=== PATIENT | male | born 1950 | race Caucasian/White ===

== ENCOUNTER 2017-07-10 18:18 | Inpatient (IN) ==
[2017-07-10] MEDS ORDERED: SALINE FLUSH 10ml SYRINGE IVF PRN (18:27)
--- NOTE | 2017-07-10 18:33 | Emergency Department Report ---
Psych HPI - General Stated Complaint: Confusion/ poss detox Time Seen by Provider: 07/10/17 18:27 Source: patient, EMS Mode of arrival: EMS Limitations: no limitations - History of Present Illness HPI Narrative: Patient is brought from [facility] for evaluation of acute mental status change with increased confusion, shaking, agitation, and bizarre behavior with hallucinations. Patient appears to be in some type of withdrawal or encephalopathy. 2 days ago the patient took 15 oxycodone, and then presented to [facility] in [place]. Patient was kept overnight, ruled out for overdose of acetaminophen, his somnolence resolved, and he was then transferred to [facility] for concerns of depression with suicidality and possible suicide attempt. Patient states that 2 days ago he did have "a bottle" of some type of liquor, but prior to that time he gave up drinking in 2003. Patient denies heavy drinking or significant drinking in the past few months, also denies routinely using narcotics or other drugs. Patient is uncertain about any head trauma, and reviewing the laboratory and records from [facility] that were included with the patient, it does not appear that a CT scan of the head was undertaken. Labs from 2 days ago did show that the patient had oxycodone in his system, but no acetaminophen or very little. Other toxicities did not appear to be indicated by his normal lab. Patient has had Ativan given once prior to transfer at 11 AM, and then had another dose of Ativan once he arrived at [facility], but his agitation and confusion seems to simply be worsening. Patient is directable, answers most questions, and follows directions, but when not spoken to, its clear that the patient is having delusional behavior, talking to people who were not there, and having nonsensical speech. In reviewing the patient notes from [facility], 2:00 this morning the patient was noted to be "talking about the [employer] and [employer] and look it up it will tell you" also patient was talking about wooden doors opening and closing from the ceiling. 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 Oxycodone 15 mg 5 times daily Surgical History: CABG. Left knee surgery 2004. Left knee replacement 2010 Physical Exam - Limitations Limitations: altered mental status (and is cooperative, but moderately confused , and when not spoken to directly, patient has rambling and nonsensical language , talking about and toward people who were not in the room) - General General appearance: alert - Normal Exams: Head:: Normocephalic without trauma Eyes:: Pupils are PERRLA w/ EOMI, No scleral icterus, irritation, or foreign bodies noted ENMT:: No facial trauma, nasal exudates, pharyngeal erythema, or exudates are noted Neck:: Full range of motion, without adenopathy, JVD, bruits or thyromegaly Chest/Respirations:: Clear all falcon, with good airflow, and symmetry bilaterally Cardiovascular:: Regular rate and rhythm, without murmur or gallop, Pulses 2+ all extremities, capillary refill, <2 seconds all extremities Abdomen:: Bowel sounds positive, soft, non-tender, non-distended, no hepatosplenomegaly, masses or bruits noted Lymphatic:: No lymphadenopathy, or lymphedema noted Musculoskeletal:: No tenderness, or deformity noted, good range of motion, all extremities Integumentary:: No rashes, hives, or bruising noted, hair and nails, without abnormality Neurological:: Patient is alert, and oriented, cranial nerves, motor/sensory/ cerebellar, exams w/o gross deficits, to observation Psychiatric:: Patient exhibits, appropriate attention, emotion and affect - Psychiatric Psychiatric exam: Present: flat affect (rambling tangential speech, moderate psychosis with nonsensical speech, and probable hallucinations. Patient is directable and can answer questions however) Psych - MDM Narrative Medical decision making narrative: CBC, CMP, UA/drug screen and EtOH all negative. CT head shows no acute findings. Over the course of the ER visit patient has become rather somnolent, consistent with Ativan dosing. Patient while asleep is slightly hypoxemic, but responds well to supplemental oxygen. Patient can be awakened, to his normal level of orientation of both person and date of , but no orientation beyond that. Case was discussed with prereview attending psychiatrist who feels that the patient is beyond her capabilities. Patient was then discussed with generations staff psychiatrist who also feels that the patient's delusional and questionable alcohol withdrawal or beyond their acute care capabilities as well. Case is discussed with Dr. Reece Rosas who will admit the patient inpatient medical telemetry for acute delirium with questionable alcohol withdrawal versus undiagnosed schizophrenia versus other cause for acute psychosis. - Lab Data Result diagrams: 07/10/17 18:51 07/10/17 18:51 Disposition Clinical Impression: Acute delirium Psychosis Qualifiers: Psychosis type: other Qualified Code(s): F28 - Other psychotic disorder not due to a substance or known physiological condition Disposition: [address] [facility] [place] Condition: Improved Prescriptions: No Action Unable to Obtain Med List [Unknown Meds] 0 #0 misc - Seen By: physician
--- OUTSIDE RECORDS SUMMARY | 2017-07-10 18:51 | External Medical Summary | Continuity of Care Document ---
:1950 Author Organization [facility] Care Team Providers Name Role Phone SHER CHRISTINA M.D. Unavailable Unavailable Insurance Providers Payer Name Policy Number Subscriber Name Relationship [employer] [id number] [id number] Self / Same As Patient Chief Complaint and Reason for Visit Chief Complaint Medical Problem Minor Reason for Visit Benzodiazepine withdrawal Problems Active Problems Medical Problem Onset Date Status Anxiety disorder 09/03/2010 Chronic Benzodiazepine withdrawal Unknown Acute Chest pain 06/24/2011 Chronic Chronic low back pain 06/03/2011 Chronic Chronic pain syndrome Unknown Acute Colon cancer screening Unknown Acute Coronary arteriosclerosis 08/20/2010 Chronic Degeneration of intervertebral disc 08/20/2010 Chronic Depressive disorder 11/07/2010 Chronic Diabetes mellitus type 2 08/20/2010 Chronic Disease related peripheral neuropathy 09/24/2010 Chronic Edema 09/17/2010 Chronic Hyperlipidemia 02/26/2011 Chronic Hypertension Unknown Acute Inguinal pain 11/19/2010 Chronic Injury of head 03/06/2011 Chronic LUMBAGO 11/16/2010 Chronic Osteoarthritis 08/20/2010 Chronic Reactive airways dysfunction syndrome 05/13/2011 Chronic 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 Medications Current Home Medications Medication Dose Units Route Directions Days/Qty Instructions Start Date Amlodipine 5 Mg Oral Daily for Not 08/17/14 Besylate 5 Mg Specified Omeprazole 40 Mg 40 Mg Oral Daily for Not 08/17/14 Specified Metformin Hcl 500 500 Mg Oral Twice A Day for 08/17/14 Mg Not Specified Acetaminophen/Hydr 1 Tab Oral for Not Specified for pain 08/17/14 ocodone Bitart 1 Tab Alprazolam 2 Mg 2 Mg Oral Twice A Day as 5 04/14/15 needed for Anxiety/Insomnia/ Spasms Past Home Medications Medication Directions Ordered Status Rosuvastatin Calcium 10 Mg Tab, Daily 11/14/07 Discontinued Hydrocodone-Acetaminophen Tab, 7.5 Every 6 Hours 11/14/07 Discontinued Tab Oral Hydrocodone-Acetaminophen Tab, 7.5 Every 8 Hours As Needed 11/29/07 Discontinued Tab Oral Aspirin 81 Mg Chw, 81 Mg Oral Daily 01/08/08 Discontinued Metoprolol Succinate 50 Mg Tab, 50 Daily 04/07/08 Discontinued Mg Oral Oxycodone/Acetaminophen 1 Ea Tab, 1 Every 6 Hours As Needed 06/12/08 Discontinued - 2 Tab Oral Alprazolam 1 Mg Tab, Oral Three Times A Day 12/22/08 Discontinued Insulin Glargine 100 Mg/Ml Inj, 20 Bedtime 12/22/08 Discontinued Units Subcutaneously Metformin Hcl 500 Mg Tab, Oral Twice A Day 12/22/08 Discontinued Oxycodone/Acetaminophen 1 Ea Tab, 1 Twice A Day 08/21/09 Discontinued Ea Oral Alprazolam 1 Mg Tab, 1 Mg Oral Four Times A Day As Needed 09/03/10 Discontinued Oxycodone W/ Acetaminophen 1 Tab Every 6 Hours As Needed 09/03/10 Discontinued Tab, 1 Tab Oral Oxycodone W/ Acetaminophen 1 Tab Every 6 Hours As Needed 09/10/10 Discontinued Tab, 1 Tab Oral Oxycodone W/ Acetaminophen 1 Tab Every 6 Hours As Needed 09/17/10 Discontinued Tab, 1 Tab Oral Oxycodone W/ Acetaminophen 1 Tab Every 6 Hours As Needed 09/24/10 Discontinued Tab, 2 Tab Oral Alprazolam 1 Mg Tab, 1 Mg Oral Four Times A Day As Needed 10/03/10 Discontinued Oxycodone W/ Acetaminophen 1 Tab Every 6 Hours As Needed 10/08/10 Discontinued Tab, 2 Tab Oral Lisinopril 20 Mg Tab, 1 Tab Oral Daily 10/16/10 Discontinued Metoprolol Tartrate 25 Mg Tab, 1 Tab Twice A Day 10/16/10 Discontinued Oral Oxycodone W/ Acetaminophen 1 Tab Every 6 Hours As Needed 10/22/10 Discontinued Tab, 2 Tab Oral Trazodone Hcl 100 Mg Tab, 100 Mg Bedtime As Needed 11/07/10 Discontinued Oral Oxycodone W/ Acetaminophen 1 Tab Every 6 Hours As Needed 11/16/10 Discontinued Tab, 3 Tab Oral Influenza Virus Vaccine 0.5 Ml Inj, Onetime 11/16/10 Discontinued 0.5 Ml Intramuscular Ciprofloxacin Hcl 500 Mg Tab, 500 Mg Twice A Day 11/19/10 Discontinued Oral Alprazolam 1 Mg Tab, 1 Mg Oral Every 6 Hours As Needed 11/29/10 Discontinued Oxycodone W/ Acetaminophen 1 Tab Every 6 Hours As Needed 11/29/10 Discontinued Tab, 3 Tab Oral Insulin Glargine 100 Mg/Ml Inj, 20 Bedtime 12/03/10 Discontinued Units Subcutaneously Oxycodone W/ Acetaminophen 1 Tab Every 6 Hours As Needed 12/13/10 Discontinued Tab, 3 Tab Oral Tizanidine Hcl 4 Mg Tab, 4 Mg Oral Every 6 Hours As Needed 12/13/10 Discontinued Oxycodone W/ Acetaminophen 1 Tab Every 6 Hours As Needed 12/25/10 Discontinued Tab, 3 Tab Oral Alprazolam 1 Mg Tab, 1 Mg Oral Every 6 Hours As Needed 12/25/10 Discontinued Oxycodone W/ Acetaminophen 1 Tab Every 6 Hours As Needed 01/07/11 Discontinued Tab, 3 Tab Oral Metoprolol Tartrate 25 Mg Tab, 1 Tab Twice A Day 01/07/11 Discontinued Oral Lisinopril 20 Mg Tab, 1 Tab Oral Daily 01/07/11 Discontinued Tizanidine Hcl 4 Mg Tab, 4 Mg Oral Every 6 Hours As Needed 01/10/11 Discontinued Oxycodone/Acetaminophen 1 Ea Tab, 2 Every 6 Hours As Needed 01/14/11 Discontinued Tab Oral Alprazolam 1 Mg Tab, 1 Mg Oral Every 6 Hours As Needed 01/22/11 Discontinued Oxycodone/Acetaminophen 1 Ea Tab, 2 Every 6 Hours As Needed 01/25/11 Discontinued Tab Oral Tizanidine Hcl 4 Mg Tab, 4 Mg Oral Every 6 Hours As Needed 01/25/11 Discontinued Metformin Hcl 500 Mg Tab, 1 Tab Oral Twice A Day 01/29/11 Discontinued Aspirin 81 Mg Chw, 1 Tab Oral Daily 01/29/11 Discontinued Venlafaxine Hcl 150 Mg Cap, 150 Mg Daily 01/29/11 Discontinued Oral Oxycodone/Acetaminophen 1 Ea Tab, 2 Every 6 Hours As Needed 02/07/11 Discontinued Tab Oral Tizanidine Hcl 4 Mg Tab, 4 Mg Oral Every 6 Hours As Needed 02/08/11 Discontinued Oxycodone/Acetaminophen 1 Ea Tab, 2 Every 6 Hours As Needed 02/21/11 Discontinued Tab Oral Alprazolam 1 Mg Tab, 1 Mg Oral Every 6 Hours As Needed 02/21/11 Discontinued Trazodone Hcl 100 Mg Tab, 100 Mg Bedtime As Needed 02/22/11 Discontinued Oral Tizanidine Hcl 4 Mg Tab, 4 Mg Oral Every 6 Hours As Needed 02/22/11 Discontinued Insulin Glargine Solostar Inj, 20 Bedtime 02/25/11 Discontinued Units Subcutaneously Simvastatin 20 Mg Tab, 20 Mg Oral Bedtime 02/26/11 Discontinued Oxycodone/Acetaminophen 1 Ea Tab, 2 Every 6 Hours As Needed 03/06/11 Discontinued Tab Oral Oxycodone/Acetaminophen 1 Ea Tab, 2 Every 6 Hours As Needed 03/20/11 Discontinued Tab Oral Alprazolam 1 Mg Tab, 1 Mg Oral Every 6 Hours As Needed 03/21/11 Discontinued Glyburide 5 Mg Tab, 1 Tab Oral Twice A Day 03/28/11 Discontinued Glyburide 5 Mg Tab, 1 Tab Oral Twice A Day 03/28/11 Discontinued Metformin Hcl 500 Mg Tab, 1 Tab Oral Twice A Day 03/28/11 Discontinued Oxycodone/Acetaminophen 1 Ea Tab, 2 Every 6 Hours As Needed 04/03/11 Discontinued Tab Oral Tizanidine Hcl 4 Mg Tab, 4 Mg Oral Every 6 Hours As Needed 04/05/11 Discontinued Oxycodone/Acetaminophen 1 Ea Tab, 2 Every 6 Hours As Needed 04/16/11 Discontinued Tab Oral Azithromycin 1 Tab Tab, 250 Mg Oral As Directed 04/18/11 Discontinued Alprazolam 1 Mg Tab, 1 Mg Oral Every 6 Hours As Needed 04/18/11 Discontinued Oxycodone/Acetaminophen 1 Ea Tab, 2 Every 6 Hours As Needed 04/29/11 Discontinued Tab Oral Alprazolam 1 Mg Tab, 1 Mg Oral Every 6 Hours As Needed 05/06/11 Discontinued Azithromycin 1 Tab Tab, 250 Mg Oral As Directed 05/09/11 Discontinued Oxycodone/Acetaminophen 1 Ea Tab, 2 Every 6 Hours As Needed 05/13/11 Discontinued Tab Oral Trazodone Hcl 100 Mg Tab, 100 Mg Bedtime As Needed 05/13/11 Discontinued Oral Prednisone 20 Mg Tab, 20 Mg Oral As Directed 05/13/11 Discontinued Methylprednisolone Acetate 80 Mg/Ml Onetime 05/13/11 Discontinued Inj, 80 Mg Intramuscular Oxycodone/Acetaminophen 1 Ea Tab, 2 Every 6 Hours As Needed 05/21/11 Discontinued Tab Oral Morphine Sulfate 60 Mg Tab, 60 Mg Twice A Day 05/21/11 Discontinued Oral Venlafaxine Hcl 150 Mg Cap, 150 Mg Daily 05/28/11 Discontinued Oral Morphine Sulfate 60 Mg Tab, 60 Mg Twice A Day 06/03/11 Discontinued Oral Alprazolam 1 Mg Tab, 1 Mg Oral Every 6 Hours As Needed 06/03/11 Discontinued Oxycodone/Acetaminophen 1 Ea Tab, 1 Every 6 Hours As Needed 06/10/11 Discontinued Tab Oral Oxycodone/Acetaminophen 1 Ea Tab, 1 Every 4 Hours As Needed 06/10/11 Discontinued Tab Oral Morphine Sulfate 60 Mg Tab, 60 Mg Twice A Day 06/10/11 Discontinued Oral Morphine Sulfate 60 Mg Tab, 60 Mg Twice A Day 06/14/11 Discontinued Oral Oxycodone/Acetaminophen 1 Ea Tab, 1 Every 4 Hours As Needed 06/24/11 Discontinued Tab Oral Venlafaxine Hcl 150 Mg Cap, 150 Mg Daily 06/25/11 Discontinued Oral Alprazolam 1 Mg Tab, 1 Mg Oral Every 6 Hours As Needed 06/27/11 Discontinued Oxycodone/Acetaminophen 1 Ea Tab, 1 Every 4 Hours As Needed 07/09/11 Discontinued Tab Oral Morphine Sulfate 60 Mg Tab, 60 Mg Twice A Day 07/09/11 Discontinued Oral Lisinopril 20 Mg Tab, 1 Tab Oral Daily 07/12/11 Discontinued Metoprolol Tartrate 25 Mg Tab, 1 Tab Twice A Day 07/12/11 Discontinued Oral Alprazolam 1 Mg Tab, 1 Mg Oral Every 6 Hours As Needed 07/22/11 Discontinued Furosemide 20 Mg Tab, 20 Mg Oral Qd Prn Pedal Edema 07/22/11 Discontinued Oxycodone/Acetaminophen 1 Ea Tab, 1 Every 4 Hours As Needed 07/22/11 Discontinued Tab Oral Oxycodone/Acetaminophen 1 Ea Tab, 2 Every 6 Hours As Needed 07/22/11 Discontinued Tab Oral Morphine Sulfate 60 Mg Tab, 60 Mg Twice A Day 07/30/11 Discontinued Oral Oxycodone/Acetaminophen 1 Ea Tab, 2 Every 6 Hours As Needed 08/02/11 Discontinued Tab Oral Morphine Sulfate 60 Mg Tab, 60 Mg Twice A Day 08/05/11 Discontinued Oral Trazodone Hcl 100 Mg Tab, 100 Mg Bedtime As Needed 08/15/11 Discontinued Oral Morphine Sulfate 60 Mg Tab, 60 Mg Twice A Day 08/19/11 Discontinued Oral Oxycodone/Acetaminophen 1 Ea Tab, 2 Every 6 Hours As Needed 08/19/11 Discontinued Tab Oral Alprazolam 1 Mg Tab, 1 Mg Oral Every 6 Hours As Needed 08/21/11 Discontinued Oxycodone/Acetaminophen 1 Ea Tab, 2 Every 6 Hours As Needed 09/02/11 Discontinued Tab Oral Oxycodone/Acetaminophen 1 Ea Tab, 2 Every 6 Hours As Needed 09/02/11 Discontinued Tab Oral Oxycodone/Acetaminophen 1 Ea Tab, 2 Every 6 Hours As Needed 09/16/11 Discontinued Tab Oral Morphine Sulfate 60 Mg Tab, 60 Mg Twice A Day 09/16/11 Discontinued Oral Alprazolam 1 Mg Tab, 1 Mg Oral Every 6 Hours As Needed 09/18/11 Discontinued Venlafaxine Hcl 150 Mg Cap, 150 Mg Daily 09/26/11 Discontinued Oral Simvastatin 20 Mg Tab, 20 Mg Oral Bedtime 09/26/11 Discontinued Oxycodone/Acetaminophen 1 Ea Tab, 1 Every 6 Hours As Needed 09/30/11 Discontinued - 2 Tab Oral Oxycodone/Acetaminophen 1 Ea Tab, 1 Every 6 Hours As Needed 10/09/11 Discontinued - 2 Tab Oral Morphine Sulfate 60 Mg Tab, 60 Mg Twice A Day 10/17/11 Discontinued Oral Alprazolam 1 Mg Tab, 1 Mg Oral Every 6 Hours As Needed 10/18/11 Discontinued Oxycodone/Acetaminophen 1 Ea Tab, 1 Every 6 Hours As Needed 10/24/11 Discontinued - 2 Tab Oral Oxycodone/Acetaminophen 1 Ea Tab, 1 Every 6 Hours As Needed 10/25/11 Discontinued - 2 Tab Oral Oxycodone/Acetaminophen 1 Ea Tab, 1 Every 6 Hours As Needed 11/06/11 Discontinued - 2 Tab Oral Methylphenidate Hcl 10 Mg Tab, 10 Mg Daily As Needed 11/06/11 Discontinued Oral Morphine Sulfate 60 Mg Tab, 60 Mg Twice A Day 11/15/11 Discontinued Oral Alprazolam 1 Mg Tab, 1 Mg Oral Every 6 Hours As Needed 11/15/11 Discontinued Trazodone Hcl 100 Mg Tab, 100 Mg Bedtime As Needed 11/20/11 Discontinued Oral Oxycodone/Acetaminophen 1 Ea Tab, 1 Every 6 Hours As Needed 11/21/11 Discontinued - 2 Tab Oral Oxycodone/Acetaminophen 1 Ea Tab, 1 Every 6 Hours As Needed 12/04/11 Discontinued - 2 Tab Oral Methylphenidate Hcl 10 Mg Tab, 10 Mg Daily As Needed 12/04/11 Discontinued Oral Alprazolam 1 Mg Tab, 1 Mg Oral Every 6 Hours As Needed 12/13/11 Discontinued Morphine Sulfate 60 Mg Tab, 60 Mg Twice A Day 12/13/11 Discontinued Oral Influenza Virus Vaccine Intradrm Onetime 12/13/11 Discontinued Inj, 1 Ml Intradermal Metoprolol Tartrate 25 Mg Tab, 1 Tab Twice A Day 12/17/11 Discontinued Oral Lisinopril 20 Mg Tab, 1 Tab Oral Daily 12/17/11 Discontinued Oxycodone/Acetaminophen 1 Ea Tab, 1 Every 6 Hours As Needed 12/17/11 Discontinued - 2 Tab Oral Venlafaxine Hcl 150 Mg Cap, 150 Mg Daily 12/26/11 Discontinued Oral Oxycodone/Acetaminophen 1 Ea Tab, 1 Every 6 Hours As Needed 12/30/11 Discontinued - 2 Tab Oral Methylphenidate Hcl 10 Mg Tab, 10 Mg Daily As Needed 12/31/11 Discontinued Oral Alprazolam 1 Mg Tab, 1 Mg Oral Every 6 Hours As Needed 01/06/12 Discontinued Oxycodone/Acetaminophen 1 Ea Tab, 1 Every 6 Hours As Needed 01/06/12 Discontinued - 2 Tab Oral Morphine Sulfate 60 Mg Tab, 60 Mg Twice A Day 01/06/12 Discontinued Oral Morphine Sulfate 60 Mg Tab, 60 Mg Twice A Day 01/09/12 Discontinued Oral Morphine Sulfate 60 Mg Tab, 60 Mg Twice A Day 01/10/12 Discontinued Oral Oxycodone/Acetaminophen 1 Ea Tab, 1 Every 6 Hours As Needed 01/21/12 Discontinued - 2 Tab Oral Oxycodone/Acetaminophen 1 Ea Tab, 1 Every 6 Hours As Needed 01/30/12 Discontinued - 2 Tab Oral Methylphenidate Hcl 10 Mg Tab, 10 Mg Daily As Needed 01/30/12 Discontinued Oral Alprazolam 1 Mg Tab, 1 Mg Oral Every 6 Hours As Needed 02/05/12 Discontinued Morphine Sulfate 60 Mg Tab, 60 Mg Twice A Day 02/10/12 Discontinued Oral Oxycodone/Acetaminophen 1 Ea Tab, 1 Every 6 Hours As Needed 02/13/12 Discontinued - 2 Tab Oral Oxycodone/Acetaminophen 1 Ea Tab, 1 Every 6 Hours As Needed 02/24/12 Discontinued - 2 Tab Oral Trazodone Hcl 100 Mg Tab, 100 Mg Bedtime As Needed 03/03/12 Discontinued Oral Oxycodone/Acetaminophen 1 Ea Tab, 1 Every 6 Hours As Needed 03/03/12 Discontinued - 2 Tab Oral Alprazolam 1 Mg Tab, 1 Mg Oral Every 6 Hours As Needed 03/03/12 Discontinued Methylphenidate Hcl 10 Mg Tab, 10 Mg Daily As Needed 03/03/12 Discontinued Oral Morphine Sulfate 60 Mg Tab, 60 Mg Twice A Day 03/03/12 Discontinued Oral Insulin Glargine Solostar Inj, 20 Bedtime 03/05/12 Discontinued Units Subcutaneously Lisinopril 20 Mg Tab, 1 Tab Oral Daily 03/09/12 Discontinued Metoprolol Tartrate 25 Mg Tab, 1 Tab Twice A Day 03/09/12 Discontinued Oral Oxycodone/Acetaminophen 1 Ea Tab, 1 Every 6 Hours As Needed 03/16/12 Discontinued - 2 Tab Oral Oxycodone/Acetaminophen 1 Ea Tab, 1 Every 6 Hours As Needed 03/26/12 Discontinued - 2 Tab Oral Morphine Sulfate 60 Mg Tab, 60 Mg Twice A Day 03/26/12 Discontinued Oral Methylphenidate Hcl 10 Mg Tab, 10 Mg Daily As Needed 03/26/12 Discontinued Oral Alprazolam 1 Mg Tab, 1 Mg Oral Every 6 Hours As Needed 03/26/12 Discontinued Venlafaxine Hcl 150 Mg Cap, 150 Mg Daily 03/30/12 Discontinued Oral Simvastatin 20 Mg Tab, 20 Mg Oral Bedtime 03/30/12 Discontinued Methylphenidate Hcl 10 Mg Tab, 10 Mg Daily As Needed 04/01/12 Discontinued Oral Morphine Sulfate 60 Mg Tab, 60 Mg Twice A Day 04/01/12 Discontinued Oral Oxycodone/Acetaminophen 1 Ea Tab, 1 Every 6 Hours As Needed 04/09/12 Discontinued - 2 Tab Oral Oxycodone/Acetaminophen 1 Ea Tab, 1 Every 6 Hours As Needed 04/23/12 Discontinued - 2 Tab Oral Morphine Sulfate 60 Mg Tab, 60 Mg Twice A Day 04/30/12 Discontinued Oral Alprazolam 1 Mg Tab, 1 Mg Oral Every 6 Hours As Needed 04/30/12 Discontinued Simvastatin 20 Mg Tab, 20 Mg Oral Bedtime 05/06/12 Discontinued Venlafaxine Hcl 150 Mg Cap, 150 Mg Daily 05/06/12 Discontinued Oral Oxycodone/Acetaminophen 1 Ea Tab, 1 Every 6 Hours As Needed 05/07/12 Discontinued - 2 Tab Oral Oxycodone/Acetaminophen 1 Ea Tab, 1 Every 6 Hours As Needed 05/20/12 Discontinued - 2 Tab Oral Alprazolam 1 Mg Tab, 1 - 2 Mg Oral Every 6 Hours As Needed 05/20/12 Discontinued Alprazolam 2 Mg Tab, 1 Tab Oral Every 8 Hours As Needed 05/20/12 Discontinued Trazodone Hcl 100 Mg Tab, 100 Mg Bedtime As Needed 05/20/12 Discontinued Oral Morphine Sulfate 60 Mg Tab, 60 Mg Twice A Day 05/28/12 Discontinued Oral Oxycodone/Acetaminophen 1 Ea Tab, 1 Every 6 Hours As Needed 06/02/12 Discontinued - 2 Tab Oral Metoprolol Tartrate 25 Mg Tab, 1 Tab Twice A Day 06/15/12 Discontinued Oral Lisinopril 20 Mg Tab, 1 Tab Oral Daily 06/15/12 Discontinued Oxycodone/Acetaminophen 1 Ea Tab, 1 Every 6 Hours As Needed 06/16/12 Discontinued - 2 Tab Oral Alprazolam 2 Mg Tab, 1 Tab Oral Every 8 Hours As Needed 06/18/12 Discontinued Morphine Sulfate 60 Mg Tab, 60 Mg Twice A Day 06/23/12 Discontinued Oral Oxycodone/Acetaminophen 1 Ea Tab, 1 Every 6 Hours As Needed 06/30/12 Discontinued - 2 Tab Oral Oxycodone/Acetaminophen 1 Ea Tab, 1 Every 6 Hours As Needed 07/14/12 Discontinued - 2 Tab Oral Alprazolam 2 Mg Tab, 1 Tab Oral Every 8 Hours As Needed 07/16/12 Discontinued Morphine Sulfate 60 Mg Tab, 60 Mg Twice A Day 07/23/12 Discontinued Oral Oxycodone/Acetaminophen 1 Ea Tab, 1 Every 6 Hours As Needed 07/28/12 Discontinued - 2 Tab Oral Venlafaxine Hcl 150 Mg Cap, 150 Mg Daily 07/28/12 Discontinued Oral Oxycodone/Acetaminophen 1 Ea Tab, 1 Every 6 Hours As Needed 08/10/12 Discontinued - 2 Tab Oral Trazodone Hcl 100 Mg Tab, 100 Mg Bedtime As Needed 08/12/12 Discontinued Oral Alprazolam 2 Mg Tab, 1 Tab Oral Every 8 Hours As Needed 08/12/12 Discontinued Trazodone Hcl 100 Mg Tab, 100 Mg Bedtime As Needed 08/12/12 Discontinued Oral Oxycodone/Acetaminophen 1 Ea Tab, 1 Every 6 Hours As Needed 08/20/12 Discontinued - 2 Tab Oral Morphine Sulfate 60 Mg Tab, 60 Mg Twice A Day 08/20/12 Discontinued Oral Venlafaxine Hcl 150 Mg Cap, 150 Mg Daily 08/28/12 Discontinued Oral Oxycodone/Acetaminophen 1 Ea Tab, 1 Every 6 Hours As Needed 09/07/12 Discontinued - 2 Tab Oral Alprazolam 2 Mg Tab, 1 Tab Oral Every 8 Hours As Needed 09/09/12 Discontinued Oxycodone/Acetaminophen 1 Ea Tab, 1 Every 6 Hours As Needed 09/18/12 Discontinued - 2 Tab Oral Simvastatin 20 Mg Tab, 20 Mg Oral Bedtime 09/28/12 Discontinued Venlafaxine Hcl 150 Mg Cap, 150 Mg Daily 09/28/12 Discontinued Oral Alprazolam 2 Mg Tab, 1 Tab Oral Every 8 Hours As Needed 10/09/12 Discontinued Morphine Sulfate 60 Mg Tab, 60 Mg Twice A Day 10/15/12 Discontinued Oral Oxycodone/Acetaminophen 1 Ea Tab, 1 Every 6 Hours As Needed 10/29/12 Discontinued - 2 Tab Oral Alprazolam 2 Mg Tab, 1 Tab Oral Every 8 Hours As Needed 11/04/12 Discontinued Oxycodone/Acetaminophen 1 Ea Tab, 1 Every 6 Hours As Needed 11/11/12 Discontinued - 2 Tab Oral Morphine Sulfate 60 Mg Tab, 60 Mg Twice A Day 11/11/12 Discontinued Oral Oxycodone/Acetaminophen 1 Ea Tab, 1 Every 6 Hours As Needed 11/25/12 Discontinued - 2 Tab Oral Metoprolol Tartrate 25 Mg Tab, 1 Tab Twice A Day 11/25/12 Discontinued Oral Lisinopril 20 Mg Tab, 1 Tab Oral Daily 11/25/12 Discontinued Alprazolam 2 Mg Tab, 1 Tab Oral Every 8 Hours As Needed 12/04/12 Discontinued Oxycodone/Acetaminophen 1 Ea Tab, 1 Every 6 Hours As Needed 12/09/12 Discontinued - 2 Tab Oral Morphine Sulfate 60 Mg Tab, 60 Mg Twice A Day 12/15/12 Discontinued Oral Trazodone Hcl 100 Mg Tab, 100 Mg Bedtime As Needed 12/15/12 Discontinued Oral Oxycodone/Acetaminophen 1 Ea Tab, 1 Every 6 Hours As Needed 12/22/12 Discontinued - 2 Tab Oral Alprazolam 2 Mg Tab, 1 Tab Oral Every 8 Hours As Needed 01/01/13 Discontinued Oxycodone/Acetaminophen 1 Ea Tab, 1 Every 6 Hours As Needed 01/05/13 Discontinued - 2 Tab Oral Morphine Sulfate 60 Mg Tab, 60 Mg Twice A Day 01/13/13 Discontinued Oral Oxycodone/Acetaminophen 1 Ea Tab, 1 Every 6 Hours As Needed 01/19/13 Discontinued - 2 Tab Oral Simvastatin 20 Mg Tab, 20 Mg Oral Bedtime 01/20/13 Discontinued Alprazolam 2 Mg Tab, 1 Tab Oral Every 8 Hours As Needed 01/29/13 Discontinued Oxycodone/Acetaminophen 1 Ea Tab, Every 6 Hours As Needed 01/29/13 Discontinued 1-2 Tab Oral Glucose Blood Angelina, 1 Strips Finger Three Times A Day 02/11/13 Discontinued Stick Morphine Sulfate 60 Mg Tab, 60 Mg Twice A Day 02/11/13 Discontinued Oral Oxycodone/Acetaminophen 1 Ea Tab, Every 6 Hours As Needed 02/11/13 Discontinued 1-2 Tab Oral Venlafaxine Hcl 150 Mg Cap, 150 Mg Daily 02/11/13 Discontinued Oral Alprazolam 2 Mg Tab, 1 Tab Oral Every 8 Hours As Needed 02/26/13 Discontinued Oxycodone Hcl 10 Mg Tab, 1-2 Tab Every 6 Hours As Needed 03/09/13 Discontinued Oral Morphine Sulfate 60 Mg Tab, 60 Mg Twice A Day 03/15/13 Discontinued Oral Oxycodone Hcl 10 Mg Tab, 1-2 Tab Every 6 Hours As Needed 03/24/13 Discontinued Oral Alprazolam 2 Mg Tab, 1 Tab Oral Every 8 Hours As Needed 03/30/13 Discontinued Oxycodone Hcl 10 Mg Tab, 1-2 Tab Every 6 Hours As Needed 04/06/13 Discontinued Oral Morphine Sulfate 60 Mg Tab, 60 Mg Twice A Day 04/13/13 Discontinued Oral Oxycodone Hcl 10 Mg Tab, 1-2 Tab Every 6 Hours As Needed 04/19/13 Discontinued Oral Metoprolol Tartrate 25 Mg Tab, 1 Tab Twice A Day 04/28/13 Discontinued Oral Oxycodone Hcl 10 Mg Tab, 1-2 Tab Every 6 Hours As Needed 05/04/13 Discontinued Oral Lisinopril 20 Mg Tab, 1 Tab Oral Daily 05/07/13 Discontinued Trazodone Hcl 100 Mg Tab, 1 Tab Oral Bedtime As Needed 05/07/13 Discontinued Morphine Sulfate 60 Mg Tab, 60 Mg Twice A Day 05/13/13 Discontinued Oral Glucose Blood Angelina, 1 Strips Finger Three Times A Day 05/13/13 Discontinued Stick Glucose Blood Angelina, 1 Strips Finger Three Times A Day 05/13/13 Discontinued Stick Oxycodone Hcl 10 Mg Tab, 1-2 Tab Every 6 Hours As Needed 05/17/13 Discontinued Oral Alprazolam 2 Mg Tab, 1 Tab Oral Every 8 Hours As Needed 05/28/13 Discontinued Oxycodone Hcl 10 Mg Tab, 1-2 Tab Every 6 Hours As Needed 05/28/13 Discontinued Oral Morphine Sulfate 60 Mg Tab, 60 Mg Twice A Day 06/10/13 Discontinued Oral Oxycodone Hcl 10 Mg Tab, 1-2 Tab Every 6 Hours As Needed 06/10/13 Discontinued Oral Venlafaxine Hcl 150 Mg Cap, 1 Cap Daily 06/14/13 Discontinued Oral Oxycodone Hcl 10 Mg Tab, 1-2 Tab Every 6 Hours As Needed 06/24/13 Discontinued Oral Alprazolam 2 Mg Tab, 1 Tab Oral Every 8 Hours As Needed 06/24/13 Discontinued Oxycodone Hcl 10 Mg Tab, 1-2 Tab Every 6 Hours As Needed 07/07/13 Discontinued Oral Morphine Sulfate 60 Mg Tab, 60 Mg Twice A Day 07/12/13 Discontinued Oral Oxycodone Hcl 10 Mg Tab, 1-2 Tab Every 6 Hours As Needed 07/22/13 Discontinued Oral Alprazolam 2 Mg Tab, 1 Tab Oral Every 8 Hours As Needed 07/23/13 Discontinued Simvastatin 20 Mg Tab, 1 Tab Oral Bedtime 07/27/13 Discontinued Metoprolol Tartrate 25 Mg Tab, 1 Tab Twice A Day 07/27/13 Discontinued Oral Trazodone Hcl 100 Mg Tab, 1 Tab Oral Bedtime As Needed 08/02/13 Discontinued Oxycodone Hcl 10 Mg Tab, 1-2 Tab Every 6 Hours As Needed 08/05/13 Discontinued Oral Lisinopril 20 Mg Tab, 1 Tab Oral Daily 08/09/13 Discontinued Morphine Sulfate 60 Mg Tab, 60 Mg Twice A Day 08/11/13 Discontinued Oral Oxycodone Hcl 10 Mg Tab, 1-2 Tab Every 6 Hours As Needed 08/18/13 Discontinued Oral Alprazolam 2 Mg Tab, 1 Tab Oral Every 8 Hours As Needed 08/20/13 Discontinued Oxycodone Hcl 10 Mg Tab, 1-2 Tab Every 6 Hours As Needed 09/01/13 Discontinued Oral Morphine Sulfate 60 Mg Tab, 60 Mg Twice A Day 09/10/13 Discontinued Oral Oxycodone Hcl 10 Mg Tab, 1-2 Tab Every 6 Hours As Needed 09/14/13 Discontinued Oral Alprazolam 2 Mg Tab, 1 Tab Oral Every 8 Hours As Needed 09/21/13 Discontinued Oxycodone Hcl 10 Mg Tab, 1-2 Tab Every 6 Hours As Needed 09/28/13 Discontinued Oral Morphine Sulfate 60 Mg Tab, 60 Mg Twice A Day 10/07/13 Discontinued Oral Oxycodone Hcl 10 Mg Tab, 1-2 Tab Every 6 Hours As Needed 10/08/13 Discontinued Oral Alprazolam 2 Mg Tab, 1 Tab Oral Every 8 Hours As Needed 10/21/13 Discontinued Oxycodone Hcl 10 Mg Tab, 1-2 Tab Every 6 Hours As Needed 10/21/13 Discontinued Oral Glyburide 5 Mg Tab, 1 Tab Oral Twice A Day 10/29/13 Discontinued Metformin Hcl 500 Mg Tab, 1 Tab Oral Twice A Day 10/29/13 Discontinued Hydroxyzine Hcl 50 Mg Tab, 50 Mg Every 6 Hours As Needed for 12/27/13 Discontinued Oral . Diclofenac Sodium 75 Mg Tab, 75 Mg Every 12 Hours As Needed as 01/03/14 Discontinued Oral needed for Pain Cyclobenzaprine Hcl 10 Mg Tab, 10 Mg Every 8 Hours As Needed as 01/03/14 Discontinued Oral needed for Spasm Social History Social History Problem Response Recorded Date/Time Hx Alcohol Use No 07/30/2011 2:14pm Hx Substance Use No 08/16/2014 11:57am Smoking Status Current some day smoker 04/14/2015 6:06am Query Response Start Date Stop Date Smoking Status Current some day smoker Hospital Discharge Instructions No hospital discharge instructions. Plan of Care Discharge Date 04/14/15 7:30am Disposition 01 HOME, SELF-CARE Condition at Discharge Stable Prescriptions See Medication Section Referrals SHER CHRISTINA M.D. - Additional Instructions/Education 1. Follow up with your doctor in 2-3 days. 2. Use Xanax as prescribed. 3. Return to ER if worsening symptoms/new concerns. Functional Status No functional status results. Allergies, Adverse Reactions, Alerts No known allergies. Immunizations No immunization records. Vital Signs Acute Vital Signs Vital Response Date/Time Blood Pressure 154/76 mm Hg 04/14/2015 7:23am Blood Pressure Mean 61 mm Hg 08/17/2014 11:10am Blood Pressure Mean 102 mm Hg 04/14/2015 7:23am Temperature (Fahrenheit) 98.4 degrees F (96.0 - 99.9) 04/14/2015 6:07am Temperature (Calculated Celsius) 36.53748 degrees C 04/14/2015 6:07am Temperature Source Oral 08/17/2014 11:14am Temperature Source Oral 04/14/2015 6:07am Temp 97.0 degrees F (96.0 - 99.9) 08/17/2014 11:08am Temperature (Calculated Celsius) 36.27056 degrees C 08/17/2014 11:08am Pulse Pulse Rate (adult) 68 bpm (60 - 100) 08/17/2014 11:45am Pulse Rate (adult) 59 bpm (60 - 100) 08/17/2014 11:10am Pulse Rate: ED 79 bpm 04/14/2015 7:23am Respiratory Rate 18 breaths per minute (10 - 20) 04/14/2015 7:23am Respiratory Rate 16 bpm (10 - 20) 08/17/2014 11:10am Height (Feet) 5 ft 04/14/2015 6:07am Height (Inches) 10 in. 04/14/2015 6:07am Weight (Pounds) 285 lbs 04/14/2015 6:07am Height 5 ft 10 in Weight 285 lb Body Mass Index 40.9 kg/m^2 Ambulatory Vital Signs Vital Response Date/Time Height 5 ft 10 in 08/02/2014 3:17pm Weight 286 lbs 08/02/2014 3:17pm Temperature 98.5 degrees F 08/02/2014 3:17pm Blood Pressure 115/76 mm Hg 08/02/2014 3:17pm Pulse Rate 98 bpm 08/02/2014 3:17pm Respiration Rate 17 bpm 08/02/2014 3:17pm Body Surface Area 2.59 m2 08/02/2014 3:17pm Body Mass Index 41.0 kg/m2 08/02/2014 3:17pm Pulse Oximetry Pulse Oximetry 08/02/2014 3:17pm Results Pending Laboratory Results Test Name Collection Date/Time Procedures No known history of procedures. Encounters Encounter Location Arrival/Admit Date Discharge/Depart Date Attending Provider Departed Trina Torres 04/14/15 6:02am 04/14/15 7:30am [facility] 08/17/14 9:03am 08/17/14 11:45am REMBERTO THOMAS Surgical Day [facility] Care Office Visit REMBERTO THOMAS 08/02/14 2:45pm REMBERTO THOMAS M.D. Registered Remberto Thomas 08/02/14 2:39pm REMBERTO THOMAS M.D. Registered Trina Torres 04/20/14 4:36pm [facility] 02/23/14 10:52am DANY DURANIZ Referred Mem[facility] Departed Trina Torres 01/03/14 1:50pm 01/03/14 4:09pm YA THOMAS Emergency Room Mem. [facility] Raul Departed Trina Torres 12/27/13 4:11pm 12/27/13 6:19pm DONOVAN Emergency Room [facility] Departed Trina Torres 12/23/13 12:18am 12/23/13 1:11am SHAISTA Emergency Room [facility] EDYTA Raul Registered Trina Torres 12/16/13 1:42pm AN[facility]ETTE DUR[facility] Torres 12/09/13 8:33am 12/09/13 11:56am DANY DURANIZ Mem. [facility] Office Visit NANO Sharma 10/21/13 1:15pm RUKHSANA MILIAN MD Registered Nano Sharma 10/21/13 1:15pm Frances MILIAN MD Departed Trina Torres 04/30/13 8:13pm 04/30/13 9:31pm CLARY NGUYEN Emergency Room [facility] Office Visit NANO Sharma 08/20/12 3:45pm RUKHSANA MILIAN MD Recent Diagnosis
--- OUTSIDE RECORDS SUMMARY | 2017-07-10 18:52 | External Medical Summary | Continuity of Care Document ---
:1950 Author Organization [facility] [employer] Unavailable Care Team Providers Name Role Phone SHER CHRISTINA M.D. Unavailable Insurance Providers Guarantor Bravo Ortiz Address [address] [place] [address] Payer [employer] Medicare Policy Number [id number] Subscriber's Name Bravo Ortiz Relationship 01 Self / Same As Patient Effective Date 10 Problems Active Problems Medical Problem Onset Date Status Abdominal pain Unknown Acute Anxiety disorder 09/03/2010 Chronic Benzodiazepine withdrawal Unknown Acute Chest pain 06/24/2011 Chronic Chronic low back pain 06/03/2011 Chronic Chronic pain syndrome Unknown Acute Colon cancer screening Unknown Acute Coronary arteriosclerosis 08/20/2010 Chronic Degeneration of intervertebral disc 08/20/2010 Chronic Depressive disorder 11/07/2010 Chronic Diabetes mellitus type 2 08/20/2010 Chronic Disease related peripheral neuropathy 09/24/2010 Chronic Dyspnea Unknown Acute Edema 09/17/2010 Chronic Elevated liver enzymes Unknown Acute Exertional dyspnea Unknown Acute Gall stones Unknown Acute Hepatitis C Unknown Acute Hx of diabetes mellitus Unknown Acute Hyperlipidemia 02/26/2011 Chronic Hypertension Unknown Acute Inguinal pain 11/19/2010 Chronic Injury of head 03/06/2011 Chronic LUMBAGO 11/16/2010 Chronic Liver cirrhosis Unknown Acute Morbid obesity Unknown Acute Osteoarthritis 08/20/2010 Chronic Primary dysthymia Unknown Acute Reactive airways dysfunction syndrome 05/13/2011 Chronic 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 Rotator cuff tendinitis Unknown Acute Weakness Unknown Acute Past Problems Medical Problem Onset Date Abdominal pain Unknown Acute anxiety Unknown Anxiety Unknown Dyspnea Unknown Hx of coronary artery disease Unknown Hx of diabetes mellitus Unknown Hx of diabetes mellitus Unknown Major depression Unknown Narcotic addiction Unknown Opiate addiction Unknown Opioid abuse Unknown Pre-hypertension Unknown Rotator cuff tendinitis Unknown Suicide ideation Unknown Weakness Unknown Medications Current Home Medications Medication Dose Units Route Directions Days Qty Instructions Start Date Aspirin 81 Mg Oral Daily 06/11/15 (Aspir-81) 81 Mg Tab Insulin 20 Unit Subcutaneously Bedtime 06/11/15 Glargine (Lantus) 100 Mg/Ml Inj Lisinopril 10 10 Mg Oral Daily 06/11/15 Mg Tab Metoprolol 25 Mg Oral Twice A Day 06/11/15 Succinate (Toprol Xl) 25 Mg Tab Oxycodone Hcl 10 Mg Oral Every 4 Hours 06/11/15 10 Mg Tab As Needed Sennosides-Docu 1 Tab Oral Twice A Day 06/11/15 sate Sodium (Senexon-S) 1 Tab Tab Simvastatin 20 Mg Oral Bedtime 06/11/15 (Zocor) 20 Mg Tab Trazodone Hcl 100 Mg Oral Bedtime 06/11/15 100 Mg Tab Venlafaxine Hcl 150 Mg Oral Daily 06/11/15 75 Mg Tab Past Home Medications Medication Directions Ordered Status Alprazolam 1 Mg Tab, 1 Mg Oral Q4hr 06/11/15 Discontinued Alprazolam 2 Mg Tab, 1 Tab Oral Every 8 Hours As Needed 10/21/13 Discontinued Alprazolam 2 Mg Tab, 1 Tab Oral Every 8 Hours As Needed 09/21/13 Discontinued Alprazolam 2 Mg Tab, 1 Tab Oral Every 8 Hours As Needed 08/20/13 Discontinued Alprazolam 2 Mg Tab, 1 Tab Oral Every 8 Hours As Needed 07/23/13 Discontinued Alprazolam 2 Mg Tab, 1 Tab Oral Every 8 Hours As Needed 06/24/13 Discontinued Alprazolam 2 Mg Tab, 1 Tab Oral Every 8 Hours As Needed 05/28/13 Discontinued Alprazolam 2 Mg Tab, 1 Tab Oral Every 8 Hours As Needed 03/30/13 Discontinued Alprazolam 2 Mg Tab, 1 Tab Oral Every 8 Hours As Needed 02/26/13 Discontinued Alprazolam 2 Mg Tab, 1 Tab Oral Every 8 Hours As Needed 01/29/13 Discontinued Alprazolam 2 Mg Tab, 1 Tab Oral Every 8 Hours As Needed 01/01/13 Discontinued Alprazolam 2 Mg Tab, 1 Tab Oral Every 8 Hours As Needed 12/04/12 Discontinued Alprazolam 2 Mg Tab, 1 Tab Oral Every 8 Hours As Needed 11/04/12 Discontinued Alprazolam 2 Mg Tab, 1 Tab Oral Every 8 Hours As Needed 10/09/12 Discontinued Alprazolam 2 Mg Tab, 1 Tab Oral Every 8 Hours As Needed 09/09/12 Discontinued Alprazolam 2 Mg Tab, 1 Tab Oral Every 8 Hours As Needed 08/12/12 Discontinued Alprazolam 2 Mg Tab, 1 Tab Oral Every 8 Hours As Needed 07/16/12 Discontinued Alprazolam 2 Mg Tab, 1 Tab Oral Every 8 Hours As Needed 06/18/12 Discontinued Alprazolam 2 Mg Tab, 1 Tab Oral Every 8 Hours As Needed 05/20/12 Discontinued Alprazolam 1 Mg Tab, 1 - 2 Mg Oral Every 6 Hours As Needed 05/20/12 Discontinued Alprazolam 1 Mg Tab, 1 Mg Oral Every 6 Hours As Needed 04/30/12 Discontinued Alprazolam 1 Mg Tab, 1 Mg Oral Every 6 Hours As Needed 03/26/12 Discontinued Alprazolam 1 Mg Tab, 1 Mg Oral Every 6 Hours As Needed 03/03/12 Discontinued Alprazolam 1 Mg Tab, 1 Mg Oral Every 6 Hours As Needed 02/05/12 Discontinued Alprazolam 1 Mg Tab, 1 Mg Oral Every 6 Hours As Needed 01/06/12 Discontinued Alprazolam 1 Mg Tab, 1 Mg Oral Every 6 Hours As Needed 12/13/11 Discontinued Alprazolam 1 Mg Tab, 1 Mg Oral Every 6 Hours As Needed 11/15/11 Discontinued Alprazolam 1 Mg Tab, 1 Mg Oral Every 6 Hours As Needed 10/18/11 Discontinued Alprazolam 1 Mg Tab, 1 Mg Oral Every 6 Hours As Needed 09/18/11 Discontinued Alprazolam 1 Mg Tab, 1 Mg Oral Every 6 Hours As Needed 08/21/11 Discontinued Alprazolam 1 Mg Tab, 1 Mg Oral Every 6 Hours As Needed 07/22/11 Discontinued Alprazolam 1 Mg Tab, 1 Mg Oral Every 6 Hours As Needed 06/27/11 Discontinued Alprazolam 1 Mg Tab, 1 Mg Oral Every 6 Hours As Needed 06/03/11 Discontinued Alprazolam 1 Mg Tab, 1 Mg Oral Every 6 Hours As Needed 05/06/11 Discontinued Alprazolam 1 Mg Tab, 1 Mg Oral Every 6 Hours As Needed 04/18/11 Discontinued Alprazolam 1 Mg Tab, 1 Mg Oral Every 6 Hours As Needed 03/21/11 Discontinued Alprazolam 1 Mg Tab, 1 Mg Oral Every 6 Hours As Needed 02/21/11 Discontinued Alprazolam 1 Mg Tab, 1 Mg Oral Every 6 Hours As Needed 01/22/11 Discontinued Alprazolam 1 Mg Tab, 1 Mg Oral Every 6 Hours As Needed 12/25/10 Discontinued Alprazolam 1 Mg Tab, 1 Mg Oral Every 6 Hours As Needed 11/29/10 Discontinued Alprazolam (Xanax) 1 Mg Tab, 1 Mg Four Times A Day As Needed 10/03/10 Discontinued Oral Alprazolam (Xanax) 1 Mg Tab, 1 Mg Four Times A Day As Needed 09/03/10 Discontinued Oral Alprazolam (Xanax) 1 Mg Tab, Oral Three Times A Day 12/22/08 Discontinued Aspirin 81 Mg Chw, 1 Tab Oral Daily 01/29/11 Discontinued Aspirin 81 Mg Chw, 81 Mg Oral Daily 01/08/08 Discontinued Azithromycin (Zithromax Z-Servando) 1 Tab As Directed 05/09/11 Discontinued Tab, 250 Mg Oral Azithromycin (Zithromax Z-Servando) 1 Tab As Directed 04/18/11 Discontinued Tab, 250 Mg Oral Ciprofloxacin Hcl (Cipro) 500 Mg Twice A Day 11/19/10 Discontinued Tab, 500 Mg Oral Cyclobenzaprine Hcl (Flexeril 10 Mg) Every 8 Hours As Needed as 01/03/14 Discontinued 10 Mg Tab, 10 Mg Oral needed for Spasm Diclofenac Sodium 75 Mg Tab, 75 Mg Every 12 Hours As Needed as 01/03/14 Discontinued Oral needed for Pain Furosemide (Lasix) 20 Mg Tab, 20 Mg Qd Prn Pedal Edema 07/22/11 Discontinued Oral Glucose Blood (Truetest Strips) Angelina, Three Times A Day 05/13/13 Discontinued 1 Strips Finger Stick Glucose Blood (Truetest Strips) Angelina, Three Times A Day 05/13/13 Discontinued 1 Strips Finger Stick Glucose Blood (Truetest Strips) Angelina, Three Times A Day 02/11/13 Discontinued 1 Strips Finger Stick Glyburide 5 Mg Tab, 1 Tab Oral Twice A Day 10/29/13 Discontinued Glyburide 5 Mg Tab, 1 Tab Oral Twice A Day 03/28/11 Discontinued Glyburide 5 Mg Tab, 1 Tab Oral Twice A Day 03/28/11 Discontinued Hydrocodone-Acetaminophen (Lortab Every 6 Hours 11/14/07 Discontinued 7.5/500) Tab, 7.5 Tab Oral Hydrocodone-Acetaminophen (Lortab Every 8 Hours As Needed 11/29/07 Discontinued 7.5/500) Tab, 7.5 Tab Oral Hydroxyzine Hcl 50 Mg Tab, 50 Mg Every 6 Hours As Needed for 12/27/13 Discontinued Oral . Influenza Virus Vaccine (Fluzone Onetime 12/13/11 Discontinued Intradermal) Intradrm Inj, 1 Ml Intradermal Influenza Virus Vaccine (Fluzone) Onetime 11/16/10 Discontinued 0.5 Ml Inj, 0.5 Ml Intramuscular Insulin Glargine (Lantus Solostar) Bedtime 03/05/12 Discontinued Solostar Inj, 20 Units Subcutaneously Insulin Glargine (Lantus Solostar) Bedtime 02/25/11 Discontinued Solostar Inj, 20 Units Subcutaneously Insulin Glargine (Lantus) 100 Mg/Ml Bedtime 12/03/10 Discontinued Inj, 20 Units Subcutaneously Insulin Glargine (Lantus) 100 Mg/Ml Bedtime 12/22/08 Discontinued Inj, 20 Units Subcutaneously Lisinopril 20 Mg Tab, 1 Tab Oral Daily 08/09/13 Discontinued Lisinopril 20 Mg Tab, 1 Tab Oral Daily 05/07/13 Discontinued Lisinopril 20 Mg Tab, 1 Tab Oral Daily 11/25/12 Discontinued Lisinopril 20 Mg Tab, 1 Tab Oral Daily 06/15/12 Discontinued Lisinopril 20 Mg Tab, 1 Tab Oral Daily 03/09/12 Discontinued Lisinopril 20 Mg Tab, 1 Tab Oral Daily 12/17/11 Discontinued Lisinopril 20 Mg Tab, 1 Tab Oral Daily 07/12/11 Discontinued Lisinopril 20 Mg Tab, 1 Tab Oral Daily 01/07/11 Discontinued Lisinopril 20 Mg Tab, 1 Tab Oral Daily 10/16/10 Discontinued Metformin Hcl 500 Mg Tab, 1 Tab Oral Twice A Day 10/29/13 Discontinued Metformin Hcl 500 Mg Tab, 1 Tab Oral Twice A Day 03/28/11 Discontinued Metformin Hcl 500 Mg Tab, 1 Tab Oral Twice A Day 01/29/11 Discontinued Metformin Hcl 500 Mg Tab, Oral Twice A Day 12/22/08 Discontinued Methylphenidate Hcl (Ritalin) 10 Mg Daily As Needed 04/01/12 Discontinued Tab, 10 Mg Oral Methylphenidate Hcl (Ritalin) 10 Mg Daily As Needed 03/26/12 Discontinued Tab, 10 Mg Oral Methylphenidate Hcl (Ritalin) 10 Mg Daily As Needed 03/03/12 Discontinued Tab, 10 Mg Oral Methylphenidate Hcl (Ritalin) 10 Mg Daily As Needed 01/30/12 Discontinued Tab, 10 Mg Oral Methylphenidate Hcl (Ritalin) 10 Mg Daily As Needed 12/31/11 Discontinued Tab, 10 Mg Oral Methylphenidate Hcl (Ritalin) 10 Mg Daily As Needed 12/04/11 Discontinued Tab, 10 Mg Oral Methylphenidate Hcl (Ritalin) 10 Mg Daily As Needed 11/06/11 Discontinued Tab, 10 Mg Oral Methylprednisolone Acetate Onetime 05/13/11 Discontinued (Depo-Medrol) 80 Mg/Ml Inj, 80 Mg Intramuscular Metoprolol Succinate (Toprol Xl) 50 Daily 04/07/08 Discontinued Mg Tab, 50 Mg Oral Metoprolol Tartrate 25 Mg Tab, 1 Tab Twice A Day 07/27/13 Discontinued Oral Metoprolol Tartrate 25 Mg Tab, 1 Tab Twice A Day 04/28/13 Discontinued Oral Metoprolol Tartrate 25 Mg Tab, 1 Tab Twice A Day 11/25/12 Discontinued Oral Metoprolol Tartrate 25 Mg Tab, 1 Tab Twice A Day 06/15/12 Discontinued Oral Metoprolol Tartrate 25 Mg Tab, 1 Tab Twice A Day 03/09/12 Discontinued Oral Metoprolol Tartrate 25 Mg Tab, 1 Tab Twice A Day 12/17/11 Discontinued Oral Metoprolol Tartrate 25 Mg Tab, 1 Tab Twice A Day 07/12/11 Discontinued Oral Metoprolol Tartrate 25 Mg Tab, 1 Tab Twice A Day 01/07/11 Discontinued Oral Metoprolol Tartrate 25 Mg Tab, 1 Tab Twice A Day 10/16/10 Discontinued Oral Morphine Sulfate (Morphine Sulfate Twice A Day 10/07/13 Discontinued Er) 60 Mg Tab, 60 Mg Oral Morphine Sulfate (Morphine Sulfate Twice A Day 09/10/13 Discontinued Er) 60 Mg Tab, 60 Mg Oral Morphine Sulfate (Morphine Sulfate Twice A Day 08/11/13 Discontinued Er) 60 Mg Tab, 60 Mg Oral Morphine Sulfate (Morphine Sulfate Twice A Day 07/12/13 Discontinued Er) 60 Mg Tab, 60 Mg Oral Morphine Sulfate (Morphine Sulfate Twice A Day 06/10/13 Discontinued Er) 60 Mg Tab, 60 Mg Oral Morphine Sulfate (Morphine Sulfate Twice A Day 05/13/13 Discontinued Er) 60 Mg Tab, 60 Mg Oral Morphine Sulfate (Morphine Sulfate Twice A Day 04/13/13 Discontinued Er) 60 Mg Tab, 60 Mg Oral Morphine Sulfate (Morphine Sulfate Twice A Day 03/15/13 Discontinued Er) 60 Mg Tab, 60 Mg Oral Morphine Sulfate (Morphine Sulfate Twice A Day 02/11/13 Discontinued Er) 60 Mg Tab, 60 Mg Oral Morphine Sulfate (Morphine Sulfate Twice A Day 01/13/13 Discontinued Er) 60 Mg Tab, 60 Mg Oral Morphine Sulfate (Morphine Sulfate Twice A Day 12/15/12 Discontinued Er) 60 Mg Tab, 60 Mg Oral Morphine Sulfate (Morphine Sulfate Twice A Day 11/11/12 Discontinued Er) 60 Mg Tab, 60 Mg Oral Morphine Sulfate (Morphine Sulfate Twice A Day 10/15/12 Discontinued Er) 60 Mg Tab, 60 Mg Oral Morphine Sulfate (Morphine Sulfate Twice A Day 08/20/12 Discontinued Er) 60 Mg Tab, 60 Mg Oral Morphine Sulfate (Morphine Sulfate Twice A Day 07/23/12 Discontinued Er) 60 Mg Tab, 60 Mg Oral Morphine Sulfate (Morphine Sulfate Twice A Day 06/23/12 Discontinued Er) 60 Mg Tab, 60 Mg Oral Morphine Sulfate (Morphine Sulfate Twice A Day 05/28/12 Discontinued Er) 60 Mg Tab, 60 Mg Oral Morphine Sulfate (Morphine Sulfate Twice A Day 04/30/12 Discontinued Er) 60 Mg Tab, 60 Mg Oral Morphine Sulfate (Morphine Sulfate Twice A Day 04/01/12 Discontinued Er) 60 Mg Tab, 60 Mg Oral Morphine Sulfate (Morphine Sulfate Twice A Day 03/26/12 Discontinued Er) 60 Mg Tab, 60 Mg Oral Morphine Sulfate (Morphine Sulfate Twice A Day 03/03/12 Discontinued Er) 60 Mg Tab, 60 Mg Oral Morphine Sulfate (Morphine Sulfate Twice A Day 12/13/11 Discontinued Er) 60 Mg Tab, 60 Mg Oral Morphine Sulfate (Morphine Sulfate Twice A Day 02/10/12 Discontinued Er) 60 Mg Tab, 60 Mg Oral Morphine Sulfate (Morphine Sulfate Twice A Day 01/10/12 Discontinued Er) 60 Mg Tab, 60 Mg Oral Morphine Sulfate (Morphine Sulfate Twice A Day 01/09/12 Discontinued Er) 60 Mg Tab, 60 Mg Oral Morphine Sulfate (Morphine Sulfate Twice A Day 01/06/12 Discontinued Er) 60 Mg Tab, 60 Mg Oral Morphine Sulfate (Morphine Sulfate Twice A Day 11/15/11 Discontinued Er) 60 Mg Tab, 60 Mg Oral Morphine Sulfate (Morphine Sulfate Twice A Day 10/17/11 Discontinued Er) 60 Mg Tab, 60 Mg Oral Morphine Sulfate (Morphine Sulfate Twice A Day 09/16/11 Discontinued Er) 60 Mg Tab, 60 Mg Oral Morphine Sulfate (Morphine Sulfate Twice A Day 08/19/11 Discontinued Er) 60 Mg Tab, 60 Mg Oral Morphine Sulfate (Morphine Sulfate Twice A Day 08/05/11 Discontinued Er) 60 Mg Tab, 60 Mg Oral Morphine Sulfate (Morphine Sulfate Twice A Day 07/30/11 Discontinued Er) 60 Mg Tab, 60 Mg Oral Morphine Sulfate (Morphine Sulfate Twice A Day 07/09/11 Discontinued Er) 60 Mg Tab, 60 Mg Oral Morphine Sulfate (Morphine Sulfate Twice A Day 06/14/11 Discontinued Er) 60 Mg Tab, 60 Mg Oral Morphine Sulfate (Morphine Sulfate Twice A Day 06/10/11 Discontinued Er) 60 Mg Tab, 60 Mg Oral Morphine Sulfate (Morphine Sulfate Twice A Day 06/03/11 Discontinued Er) 60 Mg Tab, 60 Mg Oral Morphine Sulfate (Morphine Sulfate Twice A Day 05/21/11 Discontinued Er) 60 Mg Tab, 60 Mg Oral Oxycodone Hcl 10 Mg Tab, 1-2 Tab Every 6 Hours As Needed 10/21/13 Discontinued Oral Oxycodone Hcl 10 Mg Tab, 1-2 Tab Every 6 Hours As Needed 10/08/13 Discontinued Oral Oxycodone Hcl 10 Mg Tab, 1-2 Tab Every 6 Hours As Needed 09/28/13 Discontinued Oral Oxycodone Hcl 10 Mg Tab, 1-2 Tab Every 6 Hours As Needed 09/14/13 Discontinued Oral Oxycodone Hcl 10 Mg Tab, 1-2 Tab Every 6 Hours As Needed 09/01/13 Discontinued Oral Oxycodone Hcl 10 Mg Tab, 1-2 Tab Every 6 Hours As Needed 08/18/13 Discontinued Oral Oxycodone Hcl 10 Mg Tab, 1-2 Tab Every 6 Hours As Needed 08/05/13 Discontinued Oral Oxycodone Hcl 10 Mg Tab, 1-2 Tab Every 6 Hours As Needed 07/22/13 Discontinued Oral Oxycodone Hcl 10 Mg Tab, 1-2 Tab Every 6 Hours As Needed 07/07/13 Discontinued Oral Oxycodone Hcl 10 Mg Tab, 1-2 Tab Every 6 Hours As Needed 06/24/13 Discontinued Oral Oxycodone Hcl 10 Mg Tab, 1-2 Tab Every 6 Hours As Needed 06/10/13 Discontinued Oral Oxycodone Hcl 10 Mg Tab, 1-2 Tab Every 6 Hours As Needed 05/28/13 Discontinued Oral Oxycodone Hcl 10 Mg Tab, 1-2 Tab Every 6 Hours As Needed 05/17/13 Discontinued Oral Oxycodone Hcl 10 Mg Tab, 1-2 Tab Every 6 Hours As Needed 05/04/13 Discontinued Oral Oxycodone Hcl 10 Mg Tab, 1-2 Tab Every 6 Hours As Needed 04/19/13 Discontinued Oral Oxycodone Hcl 10 Mg Tab, 1-2 Tab Every 6 Hours As Needed 04/06/13 Discontinued Oral Oxycodone Hcl 10 Mg Tab, 1-2 Tab Every 6 Hours As Needed 03/24/13 Discontinued Oral Oxycodone Hcl 10 Mg Tab, 1-2 Tab Every 6 Hours As Needed 03/09/13 Discontinued Oral Oxycodone W/ Acetaminophen Every 6 Hours As Needed 01/07/11 Discontinued (Percocet) 1 Tab Tab, 3 Tab Oral Oxycodone W/ Acetaminophen Every 6 Hours As Needed 12/25/10 Discontinued (Percocet) 1 Tab Tab, 3 Tab Oral Oxycodone W/ Acetaminophen Every 6 Hours As Needed 12/13/10 Discontinued (Percocet) 1 Tab Tab, 3 Tab Oral Oxycodone W/ Acetaminophen Every 6 Hours As Needed 11/29/10 Discontinued (Percocet) 1 Tab Tab, 3 Tab Oral Oxycodone W/ Acetaminophen Every 6 Hours As Needed 11/16/10 Discontinued (Percocet) 1 Tab Tab, 3 Tab Oral Oxycodone W/ Acetaminophen Every 6 Hours As Needed 10/22/10 Discontinued (Percocet) 1 Tab Tab, 2 Tab Oral Oxycodone W/ Acetaminophen Every 6 Hours As Needed 10/08/10 Discontinued (Percocet) 1 Tab Tab, 2 Tab Oral Oxycodone W/ Acetaminophen Every 6 Hours As Needed 09/24/10 Discontinued (Percocet) 1 Tab Tab, 2 Tab Oral Oxycodone W/ Acetaminophen Every 6 Hours As Needed 09/17/10 Discontinued (Percocet) 1 Tab Tab, 1 Tab Oral Oxycodone W/ Acetaminophen Every 6 Hours As Needed 09/10/10 Discontinued (Percocet) 1 Tab Tab, 1 Tab Oral Oxycodone W/ Acetaminophen Every 6 Hours As Needed 09/03/10 Discontinued (Percocet) 1 Tab Tab, 1 Tab Oral Oxycodone/Acetaminophen (Percocet Every 6 Hours As Needed 02/11/13 Discontinued 10/325 Mg) 1 Ea Tab, 1-2 Tab Oral Oxycodone/Acetaminophen (Percocet Every 6 Hours As Needed 01/29/13 Discontinued 10/325 Mg) 1 Ea Tab, 1-2 Tab Oral Oxycodone/Acetaminophen (Percocet Every 6 Hours As Needed 01/19/13 Discontinued 10/325 Mg) 1 Ea Tab, 1 - 2 Tab Oral Oxycodone/Acetaminophen (Percocet Every 6 Hours As Needed 01/05/13 Discontinued 10/325 Mg) 1 Ea Tab, 1 - 2 Tab Oral Oxycodone/Acetaminophen (Percocet Every 6 Hours As Needed 12/22/12 Discontinued 10/325 Mg) 1 Ea Tab, 1 - 2 Tab Oral Oxycodone/Acetaminophen (Percocet Every 6 Hours As Needed 12/09/12 Discontinued 10/325 Mg) 1 Ea Tab, 1 - 2 Tab Oral Oxycodone/Acetaminophen (Percocet Every 6 Hours As Needed 11/25/12 Discontinued 10/325 Mg) 1 Ea Tab, 1 - 2 Tab Oral Oxycodone/Acetaminophen (Percocet Every 6 Hours As Needed 11/11/12 Discontinued 10/325 Mg) 1 Ea Tab, 1 - 2 Tab Oral Oxycodone/Acetaminophen (Percocet Every 6 Hours As Needed 10/29/12 Discontinued 10/325 Mg) 1 Ea Tab, 1 - 2 Tab Oral Oxycodone/Acetaminophen (Percocet) 1 Every 6 Hours As Needed 09/18/12 Discontinued Ea Tab, 1 - 2 Tab Oral Oxycodone/Acetaminophen (Percocet) 1 Every 6 Hours As Needed 09/07/12 Discontinued Ea Tab, 1 - 2 Tab Oral Oxycodone/Acetaminophen (Percocet) 1 Every 6 Hours As Needed 08/20/12 Discontinued Ea Tab, 1 - 2 Tab Oral Oxycodone/Acetaminophen (Percocet) 1 Every 6 Hours As Needed 08/10/12 Discontinued Ea Tab, 1 - 2 Tab Oral Oxycodone/Acetaminophen (Percocet) 1 Every 6 Hours As Needed 07/28/12 Discontinued Ea Tab, 1 - 2 Tab Oral Oxycodone/Acetaminophen (Percocet) 1 Every 6 Hours As Needed 07/14/12 Discontinued Ea Tab, 1 - 2 Tab Oral Oxycodone/Acetaminophen (Percocet) 1 Every 6 Hours As Needed 06/30/12 Discontinued Ea Tab, 1 - 2 Tab Oral Oxycodone/Acetaminophen (Percocet) 1 Every 6 Hours As Needed 06/16/12 Discontinued Ea Tab, 1 - 2 Tab Oral Oxycodone/Acetaminophen (Percocet) 1 Every 6 Hours As Needed 06/02/12 Discontinued Ea Tab, 1 - 2 Tab Oral Oxycodone/Acetaminophen (Percocet) 1 Every 6 Hours As Needed 05/20/12 Discontinued Ea Tab, 1 - 2 Tab Oral Oxycodone/Acetaminophen (Percocet) 1 Every 6 Hours As Needed 05/07/12 Discontinued Ea Tab, 1 - 2 Tab Oral Oxycodone/Acetaminophen (Percocet) 1 Every 6 Hours As Needed 04/23/12 Discontinued Ea Tab, 1 - 2 Tab Oral Oxycodone/Acetaminophen (Percocet) 1 Every 6 Hours As Needed 04/09/12 Discontinued Ea Tab, 1 - 2 Tab Oral Oxycodone/Acetaminophen (Percocet) 1 Every 6 Hours As Needed 03/26/12 Discontinued Ea Tab, 1 - 2 Tab Oral Oxycodone/Acetaminophen (Percocet) 1 Every 6 Hours As Needed 03/16/12 Discontinued Ea Tab, 1 - 2 Tab Oral Oxycodone/Acetaminophen (Percocet) 1 Every 6 Hours As Needed 03/03/12 Discontinued Ea Tab, 1 - 2 Tab Oral Oxycodone/Acetaminophen (Percocet) 1 Every 6 Hours As Needed 02/24/12 Discontinued Ea Tab, 1 - 2 Tab Oral Oxycodone/Acetaminophen (Percocet) 1 Every 6 Hours As Needed 02/13/12 Discontinued Ea Tab, 1 - 2 Tab Oral Oxycodone/Acetaminophen (Percocet) 1 Every 6 Hours As Needed 01/30/12 Discontinued Ea Tab, 1 - 2 Tab Oral Oxycodone/Acetaminophen (Percocet) 1 Every 6 Hours As Needed 01/21/12 Discontinued Ea Tab, 1 - 2 Tab Oral Oxycodone/Acetaminophen (Percocet) 1 Every 6 Hours As Needed 01/06/12 Discontinued Ea Tab, 1 - 2 Tab Oral Oxycodone/Acetaminophen (Percocet) 1 Every 6 Hours As Needed 12/30/11 Discontinued Ea Tab, 1 - 2 Tab Oral Oxycodone/Acetaminophen (Percocet) 1 Every 6 Hours As Needed 12/17/11 Discontinued Ea Tab, 1 - 2 Tab Oral Oxycodone/Acetaminophen (Percocet) 1 Every 6 Hours As Needed 12/04/11 Discontinued Ea Tab, 1 - 2 Tab Oral Oxycodone/Acetaminophen (Percocet) 1 Every 6 Hours As Needed 11/21/11 Discontinued Ea Tab, 1 - 2 Tab Oral Oxycodone/Acetaminophen (Percocet) 1 Every 6 Hours As Needed 11/06/11 Discontinued Ea Tab, 1 - 2 Tab Oral Oxycodone/Acetaminophen (Percocet) 1 Every 6 Hours As Needed 10/25/11 Discontinued Ea Tab, 1 - 2 Tab Oral Oxycodone/Acetaminophen (Percocet) 1 Every 6 Hours As Needed 10/24/11 Discontinued Ea Tab, 1 - 2 Tab Oral Oxycodone/Acetaminophen (Percocet) 1 Every 6 Hours As Needed 10/09/11 Discontinued Ea Tab, 1 - 2 Tab Oral Oxycodone/Acetaminophen (Percocet) 1 Every 6 Hours As Needed 09/30/11 Discontinued Ea Tab, 1 - 2 Tab Oral Oxycodone/Acetaminophen (Percocet) 1 Every 6 Hours As Needed 09/16/11 Discontinued Ea Tab, 2 Tab Oral Oxycodone/Acetaminophen (Percocet) 1 Every 6 Hours As Needed 09/02/11 Discontinued Ea Tab, 2 Tab Oral Oxycodone/Acetaminophen (Percocet) 1 Every 6 Hours As Needed 09/02/11 Discontinued Ea Tab, 2 Tab Oral Oxycodone/Acetaminophen (Percocet) 1 Every 6 Hours As Needed 08/19/11 Discontinued Ea Tab, 2 Tab Oral Oxycodone/Acetaminophen (Percocet) 1 Every 6 Hours As Needed 08/02/11 Discontinued Ea Tab, 2 Tab Oral Oxycodone/Acetaminophen (Percocet) 1 Every 6 Hours As Needed 07/22/11 Discontinued Ea Tab, 2 Tab Oral Oxycodone/Acetaminophen (Percocet) 1 Every 4 Hours As Needed 07/22/11 Discontinued Ea Tab, 1 Tab Oral Oxycodone/Acetaminophen (Percocet) 1 Every 4 Hours As Needed 07/09/11 Discontinued Ea Tab, 1 Tab Oral Oxycodone/Acetaminophen (Percocet) 1 Every 4 Hours As Needed 06/24/11 Discontinued Ea Tab, 1 Tab Oral Oxycodone/Acetaminophen (Percocet) 1 Every 4 Hours As Needed 06/10/11 Discontinued Ea Tab, 1 Tab Oral Oxycodone/Acetaminophen (Percocet) 1 Every 6 Hours As Needed 06/10/11 Discontinued Ea Tab, 1 Tab Oral Oxycodone/Acetaminophen (Percocet) 1 Every 6 Hours As Needed 05/21/11 Discontinued Ea Tab, 2 Tab Oral Oxycodone/Acetaminophen (Percocet) 1 Every 6 Hours As Needed 05/13/11 Discontinued Ea Tab, 2 Tab Oral Oxycodone/Acetaminophen (Percocet) 1 Every 6 Hours As Needed 04/29/11 Discontinued Ea Tab, 2 Tab Oral Oxycodone/Acetaminophen (Percocet) 1 Every 6 Hours As Needed 04/16/11 Discontinued Ea Tab, 2 Tab Oral Oxycodone/Acetaminophen (Percocet) 1 Every 6 Hours As Needed 04/03/11 Discontinued Ea Tab, 2 Tab Oral Oxycodone/Acetaminophen (Percocet) 1 Every 6 Hours As Needed 03/20/11 Discontinued Ea Tab, 2 Tab Oral Oxycodone/Acetaminophen (Percocet) 1 Every 6 Hours As Needed 03/06/11 Discontinued Ea Tab, 2 Tab Oral Oxycodone/Acetaminophen (Percocet) 1 Every 6 Hours As Needed 02/21/11 Discontinued Ea Tab, 2 Tab Oral Oxycodone/Acetaminophen (Percocet) 1 Every 6 Hours As Needed 02/07/11 Discontinued Ea Tab, 2 Tab Oral Oxycodone/Acetaminophen (Percocet) 1 Every 6 Hours As Needed 01/25/11 Discontinued Ea Tab, 2 Tab Oral Oxycodone/Acetaminophen (Percocet) 1 Every 6 Hours As Needed 01/14/11 Discontinued Ea Tab, 2 Tab Oral Oxycodone/Acetaminophen (Percocet) 1 Every 6 Hours As Needed 06/12/08 Discontinued Ea Tab, 1 - 2 Tab Oral Oxycodone/Acetaminophen (Percocet) 1 Twice A Day 08/21/09 Discontinued Ea Tab, 1 Ea Oral Prednisone 20 Mg Tab, 20 Mg Oral As Directed 05/13/11 Discontinued Rosuvastatin Calcium (Crestor) 10 Mg Daily 11/14/07 Discontinued Tab, Simvastatin 20 Mg Tab, 1 Tab Oral Bedtime 07/27/13 Discontinued Simvastatin 20 Mg Tab, 20 Mg Oral Bedtime 01/20/13 Discontinued Simvastatin 20 Mg Tab, 20 Mg Oral Bedtime 09/28/12 Discontinued Simvastatin 20 Mg Tab, 20 Mg Oral Bedtime 05/06/12 Discontinued Simvastatin 20 Mg Tab, 20 Mg Oral Bedtime 03/30/12 Discontinued Simvastatin 20 Mg Tab, 20 Mg Oral Bedtime 09/26/11 Discontinued Simvastatin 20 Mg Tab, 20 Mg Oral Bedtime 02/26/11 Discontinued Tizanidine Hcl (Zanaflex) 4 Mg Tab, Every 6 Hours As Needed 04/05/11 Discontinued 4 Mg Oral Tizanidine Hcl (Zanaflex) 4 Mg Tab, Every 6 Hours As Needed 02/22/11 Discontinued 4 Mg Oral Tizanidine Hcl (Zanaflex) 4 Mg Tab, Every 6 Hours As Needed 02/08/11 Discontinued 4 Mg Oral Tizanidine Hcl (Zanaflex) 4 Mg Tab, Every 6 Hours As Needed 01/25/11 Discontinued 4 Mg Oral Tizanidine Hcl (Zanaflex) 4 Mg Tab, Every 6 Hours As Needed 01/10/11 Discontinued 4 Mg Oral Tizanidine Hcl (Zanaflex) 4 Mg Tab, Every 6 Hours As Needed 12/13/10 Discontinued 4 Mg Oral Trazodone Hcl 100 Mg Tab, 1 Tab Oral Bedtime As Needed 08/02/13 Discontinued Trazodone Hcl 100 Mg Tab, 1 Tab Oral Bedtime As Needed 05/07/13 Discontinued Trazodone Hcl 100 Mg Tab, 100 Mg Bedtime As Needed 12/15/12 Discontinued Oral Trazodone Hcl 100 Mg Tab, 100 Mg Bedtime As Needed 08/12/12 Discontinued Oral Trazodone Hcl 100 Mg Tab, 100 Mg Bedtime As Needed 08/12/12 Discontinued Oral Trazodone Hcl 100 Mg Tab, 100 Mg Bedtime As Needed 05/20/12 Discontinued Oral Trazodone Hcl 100 Mg Tab, 100 Mg Bedtime As Needed 03/03/12 Discontinued Oral Trazodone Hcl 100 Mg Tab, 100 Mg Bedtime As Needed 11/20/11 Discontinued Oral Trazodone Hcl 100 Mg Tab, 100 Mg Bedtime As Needed 08/15/11 Discontinued Oral Trazodone Hcl 100 Mg Tab, 100 Mg Bedtime As Needed 05/13/11 Discontinued Oral Trazodone Hcl 100 Mg Tab, 100 Mg Bedtime As Needed 02/22/11 Discontinued Oral Trazodone Hcl 100 Mg Tab, 100 Mg Bedtime As Needed 11/07/10 Discontinued Oral Venlafaxine Hcl (Effexor Xr) 150 Mg Daily 06/14/13 Discontinued Cap, 1 Cap Oral Venlafaxine Hcl (Effexor Xr) 150 Mg Daily 02/11/13 Discontinued Cap, 150 Mg Oral Venlafaxine Hcl (Effexor Xr) 150 Mg Daily 09/28/12 Discontinued Cap, 150 Mg Oral Venlafaxine Hcl (Effexor Xr) 150 Mg Daily 08/28/12 Discontinued Cap, 150 Mg Oral Venlafaxine Hcl (Effexor Xr) 150 Mg Daily 07/28/12 Discontinued Cap, 150 Mg Oral Venlafaxine Hcl (Effexor Xr) 150 Mg Daily 05/06/12 Discontinued Cap, 150 Mg Oral Venlafaxine Hcl (Effexor Xr) 150 Mg Daily 03/30/12 Discontinued Cap, 150 Mg Oral Venlafaxine Hcl (Effexor Xr) 150 Mg Daily 12/26/11 Discontinued Cap, 150 Mg Oral Venlafaxine Hcl (Effexor Xr) 150 Mg Daily 09/26/11 Discontinued Cap, 150 Mg Oral Venlafaxine Hcl (Effexor Xr) 150 Mg Daily 06/25/11 Discontinued Cap, 150 Mg Oral Venlafaxine Hcl (Effexor Xr) 150 Mg Daily 05/28/11 Discontinued Cap, 150 Mg Oral Venlafaxine Hcl (Effexor Xr) 150 Mg Daily 01/29/11 Discontinued Cap, 150 Mg Oral Social History Social History Problem Response Recorded Date/Time Onset Date Status Hx Alcohol Use No 07/30/2011 2:14pm Not Applicable Not Applicable Hx Substance Use No 08/16/2014 11:57am Not Applicable Not Applicable Smoking Status Former smoker 02/09/2016 3:49pm Not Applicable Not Applicable Query Response Start Date Stop Date Smoking Status Former smoker Hospital Discharge Instructions No hospital discharge instructions. Plan of Care Discharge Date 04/04/16 2:42pm Prescriptions See Medication Section Functional Status No functional status results. Allergies, Adverse Reactions, Alerts No known allergies. 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 Reason Number Influenza 11/16/10 Administered 1 [id number] Veam Video PASTEUR Vaccine, Inactivated Influenza 12/13/11 Administered 2 [id number] [employer] P[employer]ur Vaccine, Inactivated Vital Signs Acute Vital Signs Vital Response Date/Time Blood Pressure 156/104 mm Hg 02/09/2016 5:45pm Blood Pressure Mean 61 mm Hg 08/17/2014 11:10am Blood Pressure Mean 121 mm Hg 02/09/2016 5:45pm Temperature (Fahrenheit) 98.1 degrees F (96.0 - 99.9) 10/30/2015 3:27pm Temperature (Calculated Celsius) 36.78976 degrees C 10/30/2015 3:27pm Temperature Source Oral 08/17/2014 11:14am Temperature Source Oral 10/30/2015 3:27pm Temp 97.0 degrees F (96.0 - 99.9) 08/17/2014 11:08am Temperature (Calculated Celsius) 36.28639 degrees C 08/17/2014 11:08am Pulse Pulse Rate (adult) 83 bpm (60 - 100) 02/09/2016 3:50pm Pulse Rate (adult) 59 bpm (60 - 100) 08/17/2014 11:10am Pulse Rate: ED 83 bpm 02/09/2016 5:45pm Respiratory Rate 16 breaths per minute (10 - 20) 02/09/2016 3:45pm Respiratory Rate 16 bpm (10 - 20) 08/17/2014 11:10am Height (Feet) 6 ft 02/09/2016 3:45pm Height (Inches) 0 in. 02/09/2016 3:45pm Weight (Pounds) 280.0 lbs 02/09/2016 3:45pm Ambulatory Vital Signs Vital Response Date/Time Height [...] Pulse Oximetry Pulse Oximetry 08/02/2014 3:17pm Results Laboratory Results Test Name Result Units Flags Reference Collection Result Comments Date/Time Date/Time Direct Bilirubin 0.3 mg/dL 0-0.4 12/16/2013 12/16/2013 1:46pm 2:58pm Indirect Bilirubin 0.9 mg/dL H 0.1-0.8 12/16/2013 12/16/2013 1:46pm 2:58pm Lipase 28 U/L 8-57 10/02/2015 10/02/2015 2:57pm 3:18pm B-Type Natriuretic 40 pg/mL 15-100 10/02/2015 10/02/2015 Peptide 2:57pm 3:42pm Urine Color YELLOW 10/28/2015 10/28/2015 8:10am 8:25am Urine Appearance SL CLOUDY 10/28/2015 10/28/2015 8:10am 8:25am Urine Glucose (UA) TRACE NEGATIVE 10/28/2015 10/28/2015 8:10am 8:25am Urine Bilirubin NEGATIVE NEGATIVE 10/28/2015 10/28/2015 8:10am 8:25am Urine Ketones TRACE NEGATIVE 10/28/2015 10/28/2015 8:10am 8:25am Urine Specific >=1.03 1.005-1.03 10/28/2015 10/28/2015 [place] 0 0 8:10am 8:25am Urine Occult Blood NEGATIVE NEGATIVE 10/28/2015 10/28/2015 8:10am 8:25am Urine pH 5.5 4.5-8.0 10/28/2015 10/28/2015 8:10am 8:25am Urine Protein NEGATIVE NEGATIVE 10/28/2015 10/28/2015 8:10am 8:25am Urine Urobilinogen 1.0 E.U./d 0.2-1.0 10/28/2015 10/28/2015 L 8:10am 8:25am Urine Nitrate NEGATIVE NEGATIVE 10/28/2015 10/28/2015 8:10am 8:25am Urine Leukocyte NEGATIVE NEGATIVE 10/28/2015 10/28/2015 Esterase 8:10am 8:25am Urine RBC 0-1 /hpf NONE 10/28/2015 10/28/2015 8:10am 8:26am Urine WBC 1-3 /hpf NONE 10/28/2015 10/28/2015 8:10am 8:26am Urine Epithelial RARE /lpf 10/28/2015 10/28/2015 Cells 8:10am 8:26am Urine Bacteria 3+ /hpf H NONE 10/28/2015 10/28/2015 THIS SPECIMEN MEETS MEDICAL STAFF CRITERIA
8:10am 8:26am FOR A URINE CULTURE. A CULTURE HAS BEEN SET. Urine Amorphous 2+ 10/28/2015 10/28/2015 Sediment 8:10am 8:26am Bedside Glucose 253 mg/dL H 70-120 10/30/2015 10/30/2015 7:37pm 7:39pm Acetaminophen 1.3 ug/mL 10/30/2015 10/30/2015 Therapeutic Levels in serum/plasma 10-30 ug/ml
Level 3:49pm 5:08pm Toxic Levels:
4 hrs post ingestion >150 ug/ml
8 hrs post ingestion >75 ug/ml
12 hrs post ingestion >40 ug/ml Salicylates Level < 4.0 mg/dl 10/30/2015 10/30/2015 NORMAL LEVELS=& lt; 4 mg/dL
3:49pm 5:08pm THERAPEUTIC LEVEL=< 20 mg/dL
TOXIC LEVEL=> 30 mg/dL
LETHAL LEVEL=> 60 mg/dL
Ethyl Alcohol 9.3 mg/dl 0-10 10/30/2015 10/30/2015 A level below Level 3:49pm 5:08pm 10 mg/dl should be considered negative. Urine Amphetamines Negative NEGATIVE 10/30/2015 10/30/2015 Screen 4:00pm 4:09pm Urine Negative NEGATIVE 10/30/2015 10/30/2015 Methamphetamines 4:00pm 4:09pm Screen Urine Barbiturates Negative NEGATIVE 10/30/2015 10/30/2015 Screen 4:00pm 4:09pm Urine POSITIVE NEGATIVE 10/30/2015 10/30/2015 RESULT VERIFIED Benzodiazepines 4:00pm 4:14pm AND CALLED TO Screen ER/AZAR AT 1613 BY [id number]. Urine Cocaine Negative NEGATIVE 10/30/2015 10/30/2015 Screen 4:00pm 4:09pm Urine Methadone Negative NEGATIVE 10/30/2015 10/30/2015 Screen 4:00pm 4:09pm Urine Opiates Negative NEGATIVE 10/30/2015 10/30/2015 Screen 4:00pm 4:09pm Urine Negative NEGATIVE 10/30/2015 10/30/2015 Phencyclidine 4:00pm 4:09pm Screen Urine Propoxyphene Negative NEGATIVE 10/30/2015 10/30/2015 Screen 4:00pm 4:09pm Ur Negative NEGATIVE 10/30/2015 10/30/2015 Tetrahydrocannabin 4:00pm 4:09pm ol (THC) Scrn Ur Tricyclic Negative NEGATIVE 10/30/2015 10/30/2015 Antidepressants 4:00pm 4:09pm Screen D-Dimer 306 ng/mL H 0-230 02/09/2016 02/09/2016 Results <230 ng/mL yeild a negative
Quantitative 4:31pm 4:59pm predictability for DVT or PE (PE/DVT) Troponin I 0.01 ng/mL 0.0-0.02 02/09/2016 02/09/2016 4:31pm 5:37pm White Blood Count 9.0 K/uL 5.0-10.0 03/27/2016 03/27/2016 12:40pm 12:53pm Red Blood Count 5.51 M/uL H 4.60-5.40 03/27/2016 03/27/2016 12:40pm 12:53pm Hemoglobin 17.7 g/dL 14.0-18.0 03/27/2016 03/27/2016 12:40pm 12:53pm Hematocrit 49.1 % 40.0-54.0 03/27/2016 03/27/2016 12:40pm 12:53pm Mean Corpuscular 89.1 fL 80.0-94.0 03/27/2016 03/27/2016 Volume 12:40pm 12:53pm Mean Corpuscular 32.1 pg 26.0-33.0 03/27/2016 03/27/2016 Hemoglobin 12:40pm 12:53pm Mean Corpuscular 36.0 g/dL 31.0-36.0 03/27/2016 03/27/2016 Hemoglobin Concent 12:40pm 12:53pm Red Cell 12.8 % 11.5-14.5 03/27/2016 03/27/2016 Distribution Width 12:40pm 12:53pm RDW Standard 41.8 fL 35.1-43.9 03/27/2016 03/27/2016 Deviation 12:40pm 12:53pm Platelet Count 154 K/uL 130-400 03/27/2016 03/27/2016 12:40pm 12:53pm Mean Platelet 8.4 fL 7.0-11.0 03/27/2016 03/27/2016 Volume 12:40pm 12:53pm Neutrophils (%) 68.3 % 42.0-75.0 03/27/2016 03/27/2016 (Auto) 12:40pm 12:53pm Lymphocytes (%) 21.0 % 16.0-44.0 03/27/2016 03/27/2016 (Auto) 12:40pm 12:53pm Monocytes (%) 8.2 % 2.0-9.0 03/27/2016 03/27/2016 (Auto) 12:40pm 12:53pm Eosinophils (%) 1.2 % 0-7.0 03/27/2016 03/27/2016 (Auto) 12:40pm 12:53pm Basophils (%) 0.7 % 0-1 03/27/2016 03/27/2016 (Auto) 12:40pm 12:53pm Immature 0.6 % H 0-0.5 03/27/2016 03/27/2016 Granulocyte % 12:40pm 12:53pm (Auto) Nucleated Red 0.0 /100WB 0-0 03/27/2016 03/27/2016 Blood Cells % C 12:40pm 12:53pm Neutrophils # 6.2 K/uL 1.9-8.0 03/27/2016 03/27/2016 (Auto) 12:40pm 12:53pm Lymphocytes # 1.9 K/uL 0.9-5.2 03/27/2016 03/27/2016 (Auto) 12:40pm 12:53pm Monocytes # (Auto) 0.7 K/uL 0.16-1.0 03/27/2016 03/27/2016 12:40pm 12:53pm Eosinophils # 0.1 K/uL 0-0.8 03/27/2016 03/27/2016 (Auto) 12:40pm 12:53pm Basophils # (Auto) 0.1 K/uL 0-0.2 03/27/2016 03/27/2016 12:40pm 12:53pm Immature 0.05 K/uL 0-0.40 03/27/2016 03/27/2016 Granulocyte # 12:40pm 12:53pm (Auto) Nucleated Red 0.00 K/uL 0.0-0.012 03/27/2016 03/27/2016 Blood Cells # 12:40pm 12:53pm Random Glucose 196 mg/dL H 65-115 03/27/2016 03/27/2016 12:40pm 2:32pm Blood Urea 17 mg/dL 8-25 03/27/2016 03/27/2016 Nitrogen 12:40pm 2:32pm Creatinine 0.83 mg/dL L 0.9-1.6 03/27/2016 03/27/2016 12:40pm 2:32pm Glomerular 93.28 mL/min 03/27/2016 03/27/2016 MULTIPLY RESULT BY 1.210 IF THE PATIENT IS -TONGAN
Filtration Rate 12:40pm 2:31pm Units are mL/min/1.73 m2
Calc
> 60 Normal kidney function
30-59 Moderately decreased kidney function
15-29 Severely decreased kidney function
<15 End-stage kidney failure
BUN/Creatinine 20.5 03/27/2016 03/27/2016 Ratio 12:40pm 2:32pm Sodium Level 133 mEq/L 133-145 03/27/2016 03/27/2016 12:40pm 2:32pm Potassium Level 4.1 mEq/L 3.5-5.1 03/27/2016 03/27/2016 12:40pm 2:32pm Chloride Level 105 mEq/L 98-116 03/27/2016 03/27/2016 12:40pm 2:32pm Carbon Dioxide 23 mEq/L 22-34 03/27/2016 03/27/2016 Level 12:40pm 2:32pm Anion Gap 9.1 6-13 03/27/2016 03/27/2016 12:40pm 2:32pm Calcium Level 8.7 mg/dL 8.2-10.6 03/27/2016 03/27/2016 12:40pm 2:32pm Cholesterol Level 141 mg/dL 120-200 03/27/2016 03/27/2016 12:40pm 2:32pm Triglycerides 110 mg/dL 45-150 03/27/2016 03/27/2016 Level 12:40pm 2:32pm LDL Cholesterol 64 mg/dL 25-100 03/27/2016 03/27/2016 12:40pm 2:32pm HDL Cholesterol 55 mg/dL 40-80 03/27/2016 03/27/2016 12:40pm 2:32pm VLDL Cholesterol 22.0 5-40 03/27/2016 03/27/2016 12:40pm 2:32pm Cholesterol Ratio 2.563 03/27/2016 03/27/2016 (LDL/HDL) 12:40pm 2:32pm Total Protein 7.3 gm/dL 6.0-8.4 03/27/2016 03/27/2016 12:40pm 2:32pm Albumin 3.7 gm/dL 3.2-5.0 03/27/2016 03/27/2016 12:40pm 2:32pm Globulin 3.6 gm/dL H 2.0-3.0 03/27/2016 03/27/2016 12:40pm 2:32pm Albumin/Globulin 1.0 L 1.4-2.4 03/27/2016 03/27/2016 Ratio 12:40pm 2:32pm Total Bilirubin 2.3 mg/dL H 0.1-1.3 03/27/2016 03/27/2016 12:40pm 2:32pm Alkaline 89 U/L 35-125 03/27/2016 03/27/2016 Phosphatase 12:40pm 2:32pm Aspartate Amino 136 U/L H 5-40 03/27/2016 03/27/2016 Transf (AST/SGOT) 12:40pm 2:32pm Alanine 187 U/L H 5-40 03/27/2016 03/27/2016 Aminotransferase 12:40pm 2:32pm (ALT/SGPT) Glycated 7.6 % H 4.0-6.0 03/27/2016 03/27/2016 Hemoglobin 12:40pm 2:20pm Hepatitis C RNA [id number] IU/mL Negative 03/27/2016 04/02/2016 (DNA PCR) 12:40pm 2:51pm Hepatitis C RNA 5.1 03/27/2016 04/02/2016 This test is for monitoring of HCV positive patients only and
(PCR) log10 12:40pm 2:51pm should not be used as a screening test for HCV infection.
Hepatitis C RNA performed at [facility], [facility] [place] [address]
[id number] Business Banking Officer Vandana Conklin DO
Procedures No known history of procedures. Encounters Encounter Location Arrival/Admit Date Discharge/Depart Date Attending Provider Departed Clinic [facility] 04/04/16 10:01am 04/04/16 2:42pm ANTOINETTE DURAN [facility]. Bhavani Carter Registered Trina Torres 03/27/16 12:36pm [place], Referred Mem. Bhavani Beckham M.D. Departed Tr[facility] Torres 02/09/16 3:44pm 02/09/16 5:45pm MAN, Emergency Room [facility]. Bhavani VELAZQUEZ M.D. Discharged [facility] 12/26/15 1:28pm 02/09/16 11:59pm NIGHTENG[place], Recurring Mem. Bhavani Beckham M.D. Departed [facility] Torres 10/30/15 3:25pm 10/30/15 9:52pm MAN, Emergency Room [facility]. Bhavani VELAZQUEZ M.D. Departed Tr[facility] Torres 10/28/15 6:57am 10/28/15 7:35pm MAN, Emergency Room [facility]. Bhavani VELAZQUEZ M.D. Registered Trina Torres 10/23/15 7:03am [place], Referred Mem. Bhavani Beckham M.D. Departed Trina Torres 10/21/15 9:57pm 10/21/15 11:04pm MAN, Emergency Room [facility]. Bhavani VELAZQUEZ M.D. Departed Trina Torres 10/02/15 2:22pm 10/02/15 4:50pm MAN, Emergency Room [facility]. Bhavani VELAZQUEZ M.D. Registered Trina Torres 09/27/15 11:23am [place], Referred Mem. [facility] SHER Beckham M.D. Registered Trina Torres 09/14/15 2:55pm [place], Referred Mem. [facility] SHER Beckham M.D. Departed Trina Torres 06/11/15 4:32pm 06/11/15 10:14pm DONOVAN, Emergency Room [facility]. [facility] MARCUS Carter Departed Trina Torres 04/14/15 6:02am 04/14/15 7:30am YA THOMAS Emergency Room [facility]. [facility] Vinicius Carter Departed Trina Torres 08/17/14 9:03am 08/17/14 11:45am REMBERTO THOMAS Surgical Day [facility] REMBERTO THOMAS 08/02/14 2:45pm REMBERTO THOMAS M.D. Registered Remberto Thomas 08/02/14 2:39pm REMBERTO THOMAS M.D. Registered Trina Torres 04/20/14 4:36pm MISAEL MATOS [facility] 02/23/14 10:52am ANTOINETTE DURAN Referred [facility]. [facility] Raul Departed Trina Torres 01/03/14 1:50pm 01/03/14 4:09pm YA THOMAS Emergency Room [facility]. [facility] Vinicius Carter Departed Trina Torres 12/27/13 4:11pm 12/27/13 6:19pm DONOVAN, Emergency Room [facility]. [facility] MARCUS Carter Departed Trina Torres 12/23/13 12:18am 12/23/13 1:11am SHAISTA, Emergency Room [facility] Registered Trina Torres 12/16/13 1:42pm ANTOINETTE DURAN Referred [facility] Trina Torres 12/09/13 8:33am 12/09/13 11:56am ANTOINETTE DURAN [facility] NANO Sharma 10/21/13 1:15pm RUKHSANA MILIAN MD Registered Nano Sharma 10/21/13 1:15pm Frances MILIAN MD
--- OUTSIDE RECORDS SUMMARY | 2017-07-10 18:52 | External Medical Summary | Continuity of Care Document ---
:1950 Author Organization [facility] Care Team Providers Name Role Phone SHER CHRISTINA M.D. 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 Medications Current Home Medications Medication Dose Units Route Directions Days/Qty Instructions Start Date Sennosides-Docu 1 Tab Oral Twice A Day 06/11/15 sate Sodium 1 Tab Lisinopril 10 10 Mg Oral Daily 06/11/15 Mg Venlafaxine Hcl 150 Mg Oral Daily 06/11/15 75 Mg Morphine 30 Mg Oral Every 8 Hours 06/11/15 Sulfate 30 Mg As Needed Oxycodone Hcl 10 Mg Oral Every 4 Hours 06/11/15 10 Mg As Needed Alprazolam 1 Mg 1 Mg Oral Q4hr 06/11/15 Aspirin 81 Mg 81 Mg Oral Daily 06/11/15 Simvastatin 20 20 Mg Oral Bedtime 06/11/15 Mg Trazodone Hcl 100 Mg Oral Bedtime 06/11/15 100 Mg Metoprolol 25 Mg Oral Twice A Day 06/11/15 Succinate 25 Mg Insulin 20 Unit Subcutaneously Bedtime 06/11/15 Glargine 100 Mg/Ml Past Home Medications Medication Directions Ordered Status [...] Mg Tab, 60 Mg Twice A Day 10/05/12 Discontinued Oral Alprazolam 1 Mg Tab, 1 [...] A Day 05/13/13 Discontinued Stick Glucose Blood Angleina, 1 Strips Finger Three Times A Day [...] Substance Use No 08/16/2014 11:57am Smoking Status Former smoker 06/11/2015 4:50pm Query Response Start Date Stop Date Smoking Status Former smoker Hospital Discharge Instructions No hospital discharge instructions. Plan of Care Discharge Date 06/11/15 10:14pm Disposition 01 HOME, SELF-CARE Condition at Discharge Stable Instructions/Education Provided Chronic Pain Management (DC) Dysthymic Disorder (ED) Prescriptions See Medication Section Referrals SHER CHRISTINA M.D. - Additional Instructions/Education Patient is to continue medications as prescribed. Patient's to followup with [facility] per contact plan. Follow up with PCP in one to 3 days. Functional Status No functional status results. Allergies, Adverse Reactions, Alerts No known allergies. Immunizations No immunization records. Vital Signs Acute Vital Signs Vital Response Date/Time Blood Pressure 122/68 mm Hg 06/11/2015 10:09pm Blood Pressure Mean 61 mm Hg 08/17/2014 11:10am Blood Pressure Mean 86 mm Hg 06/11/2015 10:09pm Temperature (Fahrenheit) 99.2 degrees F (96.0 - 99.9) 06/11/2015 4:33pm Temperature (Calculated Celsius) 37.88852 degrees C 06/11/2015 4:33pm Temperature Source Oral 08/17/2014 11:14am Temperature Source Oral 06/11/2015 4:33pm Temp 97.0 degrees F (96.0 - 99.9) 08/17/2014 11:08am Temperature (Calculated Celsius) 36.29397 degrees C 08/17/2014 11:08am Pulse Pulse Rate (adult) 74 bpm (60 - 100) 06/11/2015 4:50pm Pulse Rate (adult) 59 bpm (60 - 100) 08/17/2014 11:10am Pulse Rate: ED 84 bpm 06/11/2015 10:09pm Respiratory Rate 18 breaths per minute (10 - 20) 06/11/2015 8:27pm Respiratory Rate 16 bpm (10 - 20) 08/17/2014 11:10am Height (Feet) 5 ft 06/11/2015 4:33pm Height (Inches) 11 in. 06/11/2015 4:33pm Weight (Pounds) 290 lbs 06/11/2015 4:33pm Height 5 ft 11 in Weight 290 lb Body Mass Index 40.4 kg/m^2 Ambulatory Vital Signs Vital Response Date/Time [...] Laboratory Results Test Name Collection Date/Time Procedures Procedure Status Date Provider(s) THER/PROPH/DIAG INJ SC/IM Completed 12/27/13 ASHLEY EARL M.D. DIAGNOSTIC COLONOSCOPY Completed 08/17/14 REMBERTO THOMAS M.D. THER/PROPH/DIAG INJ IV PUSH Completed 04/14/15 YA THOMAS M.D. HYDRATE IV INFUSION ADD-ON Completed 04/14/15 YA THOMAS M.D. Encounters Encounter Location Arrival/Admit Date Discharge/Depart Date Attending Provider Departed Trina Torres 06/11/15 4:32pm 06/11/15 10:14pm DONOVAN Emergency Room [facility] MARCUS Carter Departed Trina Torres 04/14/15 6:02am 04/14/15 7:30am YA THOMAS Emergency Room [facility] Bhavani Colvin M.D. Departed Trina Torres 08/17/14 9:03am 08/17/14 11:45am REMBERTO THOMAS Surgical Day [facility] Bhavani Small M.D. Care Office Visit REMBERTO THOMAS 08/02/14 2:45pm REMBERTO THOMAS M.D. Registered Remberto Thomas 08/02/14 2:39pm REMBERTO THOMAS M.D. Registered Trina Torres 04/20/14 4:36pm MISAEL MATOS Referred [facility] Bhavani Axel Registered Trina Torres 02/23/14 10:52am ANTOINETTE DURAN Referred [facility] Bhavani Carter Departed Trina Torres 01/03/14 1:50pm 01/03/14 4:09pm YA THOMAS Emergency Room [facility] Bhavani Colvin M.D. Departed Trina Torres 12/27/13 4:11pm 12/27/13 6:19pm DONOVAN Emergency Room [facility] MARCUS Carter Departed Trina Torres 12/23/13 12:18am 12/23/13 1:11am SHAISTA Emergency Room [facility] Venancio Carter Registered Trina Torres 12/16/13 1:42pm ANTOINETTE DURAN [facility] Departed Clinic Trina Torres 12/09/13 8:33am 12/09/13 11:56am [facility] NANO Sharma 10/21/13 1:15pm RUKHSANA MILIAN MD Registered Nano Sharma 10/21/13 1:15pm Frances MILIAN MD Departed Trina Torres 04/30/13 8:13pm 04/30/13 9:31pm [facility]
--- OUTSIDE RECORDS SUMMARY | 2017-07-10 18:53 | External Medical Summary | Continuity of Care Document ---
:1950 Author Organization [email or web address] Phone Unavailable Care Team Providers Name Role Phone SHER CHRISTINA M.D. Unavailable Insurance Providers Guarantor Bravo Ortiz Address [address] [place] [address] Payer s Medicare Policy Number [id number] Subscriber's Name Bravo Ortiz Parvin Relationship 01 Self / Same As Patient Effective Date 10 Chief Complaint and Reason for Visit Chief Complaint Respiratory Problem Reason for Visit [id number] Hepatitis C Rotator cuff tendinitis Dyspnea Elevated liver enzymes Problems Active Problems Medical Problem Onset Date [...] Chronic Dyspnea Unknown Acute Edema 09/17/2010 Chronic Exertional dyspnea Unknown Acute Gall stones Unknown Acute Hx of diabetes mellitus Unknown [...] pain Unknown Acute anxiety Unknown Anxiety Unknown Hx of coronary artery disease Unknown Hx of diabetes mellitus Unknown Major depression Unknown Narcotic addiction Unknown Opiate addiction Unknown Opioid abuse Unknown Pre-hypertension Unknown Suicide ideation Unknown Weakness Unknown Medications [...] discharge instructions. Plan of Care Discharge Date 02/09/16 5:45pm Disposition 01 HOME, SELF-CARE Condition at Discharge Stable Prescriptions See Medication Section Referrals SHER CHRISTINA M.D. Address: [address] [place], [place] [id number] Additional Instructions/Education Follow up with Dr. Christina next week to reassess your symptoms. Continue with current pain medication. Use arm sling for comfort. Return to the ER if with worsening shortness of breath, chest pain, fever or weakness.

Increase Lantus to 30 units/day. Continue with current dose of Metformin. Have Dr. Christina recheck blood sugars next week.

Functional Status No functional status results. Allergies, Adverse Reactions, Alerts No known allergies. 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 Reason Number Influenza 11/16/10 Administered 1 [id number] [employer]UR Vaccine, Inactivated Influenza 12/13/11 Administered 2 [id number] [employer] Pasteur Vaccine, Inactivated Vital Signs Acute Vital Signs Vital Response Date/Time Blood Pressure 156/104 mm Hg 02/09/2016 5:45pm Blood Pressure Mean 61 mm Hg 08/17/2014 11:10am Blood Pressure Mean 121 mm Hg 02/09/2016 5:45pm Temperature (Fahrenheit) 98.1 degrees F (96.0 - 99.9) 10/30/2015 3:27pm Temperature (Calculated Celsius) 36.28206 degrees C 10/30/2015 3:27pm Temperature Source Oral 08/17/2014 11:14am Temperature Source Oral 10/30/2015 3:27pm Temp 97.0 degrees F (96.0 - 99.9) 08/17/2014 11:08am Temperature (Calculated Celsius) 36.17961 degrees C 08/17/2014 11:08am Pulse Pulse Rate [...] 3:45pm Weight (Pounds) 280.0 lbs 02/09/2016 3:45pm Height 6 ft 0 in 02/09/2016 3:45pm Weight 280 lb 02/09/2016 3:45pm Body Mass Index 38.0 kg/m^2 02/09/2016 3:45pm Ambulatory Vital Signs Vital Response [...] Flags Reference Collection Result Comments Date/Time Date/Time Cholesterol Level 131 mg/dL 120-200 12/16/2013 12/16/2013 1:46pm 2:58pm Triglycerides 101 mg/dL 45-150 12/16/2013 12/16/2013 Level 1:46pm 2:58pm LDL Cholesterol 63 mg/dL 25-100 12/16/2013 12/16/2013 1:46pm 2:58pm HDL Cholesterol 48 mg/dL 40-80 12/16/2013 12/16/2013 1:46pm 2:58pm VLDL Cholesterol 20.2 5-40 12/16/2013 12/16/2013 1:46pm 2:58pm Cholesterol Ratio 2.729 12/16/2013 12/16/2013 (LDL/HDL) 1:46pm 2:58pm Direct Bilirubin 0.3 mg/dL 0-0.4 12/16/2013 12/16/2013 [...] 8:25am Urine Specific >=1.03 1.005-1.03 10/28/2015 10/28/2015 Margie 0 0 8:10am 8:25am Urine Occult Blood [...] CALLED TO Screen ER/[facility] AT 1613 BY [id number]. Urine Cocaine Negative NEGATIVE 10/30/2015 10/30/2015 Screen [...] NEGATIVE 10/30/2015 10/30/2015 Antidepressants 4:00pm 4:09pm Screen White Blood Count 6.8 K/uL 5.0-10.0 02/09/2016 02/09/2016 4:31pm 4:52pm Red Blood Count 6.00 M/uL H 4.60-5.40 02/09/2016 02/09/2016 4:31pm 4:52pm Hemoglobin 19.3 g/dL H 14.0-18.0 02/09/2016 02/09/2016 4:31pm 4:52pm Hematocrit 55.4 % H 40.0-54.0 02/09/2016 02/09/2016 4:31pm 4:52pm Mean Corpuscular 92.3 fL 80.0-94.0 02/09/2016 02/09/2016 Volume 4:31pm 4:52pm Mean Corpuscular 32.2 pg 26.0-33.0 02/09/2016 02/09/2016 Hemoglobin 4:31pm 4:52pm Mean Corpuscular 34.8 g/dL 31.0-36.0 02/09/2016 02/09/2016 Hemoglobin Concent 4:31pm 4:52pm Red Cell 12.9 % 11.5-14.5 02/09/2016 02/09/2016 Distribution Width 4:31pm 4:52pm RDW Standard 43.6 fL 35.1-43.9 02/09/2016 02/09/2016 Deviation 4:31pm 4:52pm Platelet Count 90 K/uL L 130-400 02/09/2016 02/09/2016 4:31pm 4:52pm Mean Platelet 8.9 fL 7.0-11.0 02/09/2016 02/09/2016 Volume 4:31pm 4:52pm Neutrophils (%) 67.9 % 42.0-75.0 02/09/2016 02/09/2016 (Auto) 4:31pm 4:52pm Lymphocytes (%) 18.3 % 16.0-44.0 02/09/2016 02/09/2016 (Auto) 4:31pm 4:52pm Monocytes (%) 12.4 % H 2.0-9.0 02/09/2016 02/09/2016 (Auto) 4:31pm 4:52pm Eosinophils (%) 0.4 % 0-7.0 02/09/2016 02/09/2016 (Auto) 4:31pm 4:52pm Basophils (%) 0.3 % 0-1 02/09/2016 02/09/2016 (Auto) 4:31pm 4:52pm Immature 0.7 % H 0-0.5 02/09/2016 02/09/2016 Granulocyte % 4:31pm 4:52pm (Auto) Nucleated Red 0.0 /100WB 0-0 02/09/2016 02/09/2016 Blood Cells % C 4:31pm 4:52pm Neutrophils # 4.6 K/uL 1.9-8.0 02/09/2016 02/09/2016 (Auto) 4:31pm 4:52pm Lymphocytes # 1.3 K/uL 0.9-5.2 02/09/2016 02/09/2016 (Auto) 4:31pm 4:52pm Monocytes # (Auto) 0.9 K/uL 0.16-1.0 02/09/2016 02/09/2016 4:31pm 4:52pm Eosinophils # 0.0 K/uL 0-0.8 02/09/2016 02/09/2016 (Auto) 4:31pm 4:52pm Basophils # (Auto) 0.0 K/uL 0-0.2 02/09/2016 02/09/2016 4:31pm 4:52pm Immature 0.05 K/uL 0-0.40 02/09/2016 02/09/2016 Granulocyte # 4:31pm 4:52pm (Auto) Nucleated Red 0.00 K/uL 0.0-0.012 02/09/2016 02/09/2016 Blood Cells # 4:31pm 4:52pm D-Dimer 306 ng/mL H 0-230 02/09/2016 02/09/2016 Results <230 ng/mL yeild a negative
Quantitative 4:31pm 4:59pm predictability for DVT or PE (PE/DVT) Random Glucose 297 mg/dL H 65-115 02/09/2016 02/09/2016 4:31pm 5:24pm Blood Urea 18 mg/dL 8-25 02/09/2016 02/09/2016 Nitrogen 4:31pm 5:24pm Creatinine 0.72 mg/dL L 0.9-1.6 02/09/2016 02/09/2016 4:31pm 5:24pm Glomerular 109.91 mL/min 02/09/2016 02/09/2016 MULTIPLY RESULT BY 1.210 IF THE PATIENT IS -SERBIAN
Filtration Rate 4:31pm 5:24pm Units are mL/min/1.73 m2
Calc
> 60 Normal kidney function
30-59 Moderately decreased kidney function
15-29 Severely decreased kidney function
<15 End-stage kidney failure
BUN/Creatinine 25.0 02/09/2016 02/09/2016 Ratio 4:31pm 5:24pm Sodium Level 132 mEq/L L 133-145 02/09/2016 02/09/2016 4:31pm 5:24pm Potassium Level 4.3 mEq/L 3.5-5.1 02/09/2016 02/09/2016 4:31pm 5:24pm Chloride Level 101 mEq/L 98-116 02/09/2016 02/09/2016 4:31pm 5:24pm Carbon Dioxide 22 mEq/L 22-34 02/09/2016 02/09/2016 Level 4:31pm 5:24pm Anion Gap 13.3 H 6-13 02/09/2016 02/09/2016 4:31pm 5:24pm Calcium Level 8.5 mg/dL 8.2-10.6 02/09/2016 02/09/2016 4:31pm 5:24pm Total Protein 7.1 gm/dL 6.0-8.4 02/09/2016 02/09/2016 4:31pm 5:24pm Albumin 3.6 gm/dL 3.2-5.0 02/09/2016 02/09/2016 4:31pm 5:24pm Globulin 3.5 gm/dL H 2.0-3.0 02/09/2016 02/09/2016 4:31pm 5:24pm Albumin/Globulin 1.0 L 1.4-2.4 02/09/2016 02/09/2016 Ratio 4:31pm 5:24pm Total Bilirubin 2.5 mg/dL H 0.1-1.3 02/09/2016 02/09/2016 4:31pm 5:24pm Alkaline 102 U/L 35-125 02/09/2016 02/09/2016 Phosphatase 4:31pm 5:24pm Aspartate Amino 97 U/L H 5-40 02/09/2016 02/09/2016 Transf (AST/SGOT) 4:31pm 5:24pm Alanine 172 U/L H 5-40 02/09/2016 02/09/2016 Aminotransferase 4:31pm 5:24pm (ALT/SGPT) Troponin I 0.01 ng/mL 0.0-0.02 02/09/2016 02/09/2016 4:31pm 5:37pm Procedures No known history of procedures. Encounters Encounter Location Arrival/Admit Date Discharge/Depart Date Attending Provider Departed Trina Torres 02/09/16 3:44pm 02/09/16 5:45pm MAN, Emergency Room Mem. [facility] MARCUS Carter Registered Trina Torres 12/26/15 1:28pm [place]IGHT[place], Recurring Mem. Bhavani Beckham M.D. Departed Trina Torres 10/30/15 3:25pm 10/30/15 9:52pm MAN, Emergency Room Mem. Bhavani VELAZQUEZ M.D. Departed Trina Torres 10/28/15 6:57am 10/28/15 7:35pm MAN, Emergency Room [facility]. Bhavani VELAZQUEZ M.D. Registered Trina Torres 10/23/15 7:03am NIGHT[place], Referred Mem. Bhavani Beckham M.D. Departed Trina Torres 10/21/15 9:57pm 10/21/15 11:04pm MAN, Emergency Room [facility]. [facility] MARCUS Carter Departed Trina Torres 10/02/15 2:22pm 10/02/15 4:50pm MAN, Emergency Room [facility]. [facility] MARCUS Carter Registered Trina Torres 09/27/15 11:23am [place], Referred Mem. Bhavani Beckham M.D. Registered Trina Torres 09/14/15 2:55pm [place], Referred Mem. [facility] SHER Beckham M.D. Departed Trina Torres 06/11/15 4:32pm 06/11/15 10:14pm DONOVAN Emergency Room Mem. [facility] MARCUS Carter Departed Trina Torres 04/14/15 6:02am 04/14/15 7:30am YA THOMAS Emergency Room Mem. [facility] Vinicius Carter Departed Trina Torres 08/17/14 9:03am 08/17/14 11:45am REMBERTO THOMAS Surgical Day [facility]. [facility] Staci Carter Care Office Visit REMBERTO THOMAS 08/02/14 2:45pm REMBERTO THOMAS M.D. Registered Remberto Thomas 08/02/14 2:39pm REMBERTO THOMAS M.D. Registered Trina Torres 04/20/14 4:36pm [facility] 02/23/14 10:52am ANTOINETTE DURAN Referred Mem. [facility] Raul Departed Trina Torres 01/03/14 1:50pm 01/03/14 4:09pm YA THOMAS Emergency Room Mem. [facility] Vinicius Axel Departed Trina Torres 12/27/13 4:11pm 12/27/13 6:19pm DONOVAN Emergency Room Mem. [facility] MARCUS Carter Departed Trina Torres 12/23/13 12:18am 12/23/13 1:11am SHAISTA Emergency Room Mem. [facility] Raul Registered Trina Torres 12/16/13 1:42pm ANTOINETTE DUR[facility] Trina [facility] 12/09/13 8:33am 12/09/13 11:56am [facility] NANO Sharma 10/21/13 1:15pm RUKHSANA MILIAN MD Registered Nano Sharma 10/21/13 1:15pm Frances MILIAN MD Recent Diagnosis
--- OUTSIDE RECORDS SUMMARY | 2017-07-10 18:54 | External Medical Summary | Referral Summary ---
:1950 Author Organization [facility] Address [address] [place] [address] Care Team Providers Name Role Phone No PCP, Pt States Primary Care Physician Encounter [facility] [id number] Date(s): 05/13/16 - 05/20/16 [facility] [address], [place] [address] Discharge Diagnosis: Thrombocytopenia Discharge Diagnosis: Intentional drug overdose Discharge Disposition: 01-Home or Self Care Attending Physician: Lay Henao MD Admitting Physician: Dre Chilel MD Vital Signs Most recent to oldest [Reference Range]: 1 Temperature Oral [35.8-37.3 degC] 36.9 degC (05/17/16 4:00 AM) Temperature Temporal Artery [36.3-37.8 degC] 36.7 degC (05/20/16 11:00 AM) Peripheral Pulse Rate [60-100 bpm] 64 bpm (05/20/16 11:24 AM) Heart Rate Monitored [60-100 bpm] 70 bpm (05/20/16 4:17 AM) Respiratory Rate [14-20 br/min] 16 br/min (05/20/16 11:00 AM) Blood Pressure [90-140/60-90 mmHg] 160/74 mmHg *HI* (05/20/16 11:24 AM) Mean Arterial Pressure, Cuff 93 mmHg (05/19/16 8:16 PM) SpO2 98 % (05/20/16 11:00 AM) Remote Telemetry Ongoing (05/14/16 8:05 PM) Problem List Condition Effective Dates Status Health Status Informant Acute pain(Confirmed) Active At risk of pressure sore(Confirmed) Active Diabetes(Confirmed) Active patient Impaired skin integrity(Confirmed)1 Active Intentional drug overdose(Confirmed) Active Thrombocytopenia(Confirmed) Active 1Problem added automatically by system based on initiation of Impaired Skin Integrity Plan of Care Allergies, Adverse Reactions, Alerts No Known Medication Allergies Medications aspirin 81 mg, Oral, Daily Start Date: 05/13/16 Status: OrderedcloNIDine 0.1 mg, Oral, BID Start Date: 05/13/16 Status: OrderedLantus 100 units/mL subcutaneous solution 25 units, SubCutaneous, Daily Start Date: 05/13/16 Status: Orderedlisinopril 10 mg, Oral, Daily Start Date: 05/13/16 Status: OrderedmetFORMIN 500 mg, Oral, Daily Start Date: 05/13/16 Status: OrderedMetoprolol Tartrate 25 mg, Oral, BID Start Date: 05/13/16 Status: Orderedsimvastatin 20 mg, Oral, Bedtime (once a day) Start Date: 05/13/16 Status: OrderedtraZODone 100 mg, Oral, Bedtime (once a day) Start Date: 05/13/16 Status: Orderedvenlafaxine 75 mg oral tablet, extended release 75 mg 1 tabs, Oral, Daily Start Date: 05/13/16 Status: Ordered Results Hematology Most recent to oldest [Reference Range]: 1 WBC [4.8-10.8 10*3/uL] 9.7 10*3/uL (05/14/16 3:42 AM) RBC [4.60-6.20] 5.43 (05/14/16 3:42 AM) Hgb [14.0-18.0 gm/dL] 17.6 gm/dL (05/14/16 3:42 AM) Hct [42.0-52.0 %] 49.3 % (05/14/16 3:42 AM) MCV [82.0-99.0 fL] 90.8 fL (05/14/16 3:42 AM) MCH [27.0-32.0 pg] 32.4 pg *HI* (05/14/16 3:42 AM) MCHC [32.0-36.0 gm/dL] 35.7 gm/dL (05/14/16 3:42 AM) RDW [11.5-14.5 %] 13.5 % (05/14/16 3:42 AM) Platelet [150-400 10*3/uL] 179 10*3/uL (05/14/16 3:42 AM) MPV [9.4-12.3 fL] 9.8 fL (05/14/16 3:42 AM) Immature Granulocytes [0.0-1.0 %] 0.3 % (05/14/16 3:42 AM) Neutrophils [51-75 %] 71 % (05/14/16 3:42 AM) Lymphocytes [20-46 %] 18 % *LOW* (05/14/16 3:42 AM) Monocytes [4-11 %] 11 % (05/14/16 3:42 AM) Eosinophils [0-4 %] 0 % (05/14/16 3:42 AM) Basophils [0-2 %] 0 % (05/14/16 3:42 AM) Neutro Absolute [1.90-7.00] 6.84 (05/14/16 3:42 AM) Lymph Absolute [0.80-3.30] 1.77 (05/14/16 3:42 AM) [place] Absolute [0.30-1.00] 1.02 *HI* (05/14/16 3:42 AM) Eos Absolute [0.00-0.50] 0.03 (05/14/16 3:42 AM) Baso Absolute [0.00-0.20] 0.01 (05/14/16 3:42 AM) Differential Scanned Slide (05/13/16 2:08 PM) Coagulation Most recent to oldest [Reference Range]: 1 INR [0.9-1.2] 1.1 (05/13/16 8:34 PM) Chemistry Most recent to oldest [Reference Range]: 1 Sodium Lvl [136-144 mEq/L] 144 mEq/L (05/16/16 4:09 AM) Potassium Lvl [3.6-5.1 mEq/L] 4.4 mEq/L 1 (05/16/16 4:09 AM) Chloride [99-109 mEq/L] 112 mEq/L *HI* (05/16/16 4:09 AM) CO2 [22-32 mEq/L] 23 mEq/L (05/16/16 4:09 AM) AGAP [3-20] 9 (05/16/16 4:09 AM) BUN [4-20 mg/dL] 18 mg/dL (05/16/16 4:09 AM) Glucose Lvl [70-100 mg/dL] 170 mg/dL *HI* (05/16/16 4:09 AM) Creatinine Lvl [0.64-1.27 mg/dL] 0.83 mg/dL (05/16/16 4:09 AM) eGFR [>60] >60 2 (05/16/16 4:09 AM) Calcium Lvl [8.6-10.0 mg/dL] 8.8 mg/dL (05/16/16 4:09 AM) Albumin Lvl [3.5-4.8 gm/dL] 3.4 gm/dL *LOW* (05/16/16 4:09 AM) Total Protein [6.1-7.9 gm/dL] 7.3 gm/dL (05/14/16 3:42 AM) Globulin [1.9-4.3 gm/dL] 3.7 gm/dL (05/14/16 3:42 AM) ALT [17-63 U/L] 112 U/L *HI* (05/14/16 3:42 AM) AST [15-41 U/L] 68 U/L *HI* (05/14/16 3:42 AM) Alk Phos [26-104 U/L] 74 U/L (05/14/16 3:42 AM) Bili Total [0.2-1.2 mg/dL] 1.7 mg/dL 3 *HI* (05/14/16 3:42 AM) Magnesium Lvl [1.8-2.5 mg/dL] 2.1 mg/dL (05/14/16 3:42 AM) Phosphorus [2.4-4.7 mg/dL] 3.3 mg/dL 4 (05/16/16 4:09 AM) Ammonia [9-35 mcmol/L] 27 mcmol/L (05/13/16 8:34 PM) Sodium Venous [136-144 mEq/L] 145 mEq/L *HI* (05/13/16 1:30 PM) Potassium Venous [3.6-5.1 mEq/L] 3.4 mEq/L 5 *LOW* (05/13/16 1:30 PM) Calcium Ionized Venous [1.19-1.41 mmol/L] 1.08 mmol/L *LOW* (05/13/16 1:30 PM) Total CO2 Venous [25-29 mEq/L] 23 mEq/L *LOW* (05/13/16 1:30 PM) HGB Venous NPT [14.0-18.0 gm/dL] 15.6 gm/dL (05/13/16 1:30 PM) HCT Venous [42.0-52.0 %] 46.0 % (05/13/16 1:30 PM) Glucose Venous [70-100 mg/dL] 81 mg/dL (05/13/16 1:30 PM) BUN Venous [4-20] 17 (05/13/16 1:30 PM) Creatinine Venous [0.7-1.2 mg/dL] 0.6 mg/dL *LOW* (05/13/16 1:30 PM) Venous CL [99-109 mEq/L] 109 mEq/L (05/13/16 1:30 PM) Anion Gap, Erickson [3-20] 13 (05/13/16 1:30 PM) Blood Glucose, Capillary [70-100 mg/dL] 150 mg/dL *HI* (05/20/16 6:01 AM) Blood Glucose, Capillary Out of Range Low (05/14/16 6:45 PM) 1Result Comment: Hemolyzed specimen. The following tests may be affected: ALT, AST, Ammonia, Iron, Potassium, LDH, Amylase, CPK, and Total Bilirubin.2Result Comment : Multiply eGFR results by 1.21 for race.3Result Comment: Naproxen, specifically the metabolite O-desmethylnaproxen, may cause spurious elevation in Total Bilirubin levels.4Result Comment: High dosages of liposomal Amphotericin B (AmBisome) therapy or other drug preparations that use a liposomal envelope to facilitate drug delivery may cause falsely elevated results for phosphorus.5Result Comment: This test was performed on a whole blood specimen. The presence or absence of hemolysis cannot be assessed. Hemolysis can falsely elevate potassium levels. Normals are for venous specimens only.Therapeutic Drug Monitoring Most recent to oldest [Reference Range]: 1 Acetaminophen Lvl [10-30 ug/mL] <10 ug/mL (05/13/16 2:08 PM) Salicylate Lvl [0-30 mg/dL] <4 mg/dL (05/13/16 2:08 PM) Toxicology Most recent to oldest [Reference Range]: 1 Ethanol Lvl Not Detected (05/13/16 2:08 PM) U Amphetamine Scrn Negative (05/13/16 2:08 PM) U Cocaine Scrn Negative (05/13/16 2:08 PM) U Cannab Scrn Negative (05/13/16 2:08 PM) U Opiate Scrn Negative (05/13/16 2:08 PM) U PCP Scrn Negative (05/13/16 2:08 PM) U Benzodiazepine Scrn Positive *ABN* (05/13/16 2:08 PM) U Barbiturate Scrn Negative (05/13/16 2:08 PM) Methadone Lvl Negative (05/13/16 2:08 PM) Tricyclics Negative 1 (05/13/16 2:08 PM) 1Result Comment: Cut-off concentrations: Amphetamines: 1000 ng/mL Cocaine: 300 ng/mL Cannabinoid: 50 ng/mL Opiate: 300 ng/mL Phencyclidine (PCP): 25 ng/mL Benzodiazepine: 200 ng/mL Barbiturate: 200 ng/mL Methadone: 300 ng/mL Tricyclic: 300 ng/mL The urine drug screen assays are qualitative screens. A more specific GC/MS method must be performed to obtain a confirmed analytical result. Unconfirmed screening results must not be used for non-medical purposes(e.g. employment or legal testing) Immunizations No data available for this section Procedures No data available for this section Social History Social History Type Response Smoking Status Former smoker Assessment and Plan Extracted from: Title: Safety Plan/Suicidal Follow Up Author: Kimberly Marc LCSW Date: 05/20 In Patient Therapy Consultation Date and Time of Consult: 05-20-16 3359-3047 Reason for Consultation: Safety Eval due to Intentional overdose/Suicide attempt Content of Therapy: Family meeting present was: Client and his ex-; [phone]; Keya and Franck/sister and bro. in law/[phone] Therapeutic Interventions: Discussed what each person was concerned and agreed medication management and unreported depressive symptoms. Keya and client agreed to have his sister-Keya remove any stock piled old medication and pl maco 1 week of medication in pill organizer and take existing medication home locked. Franck and Client agreed for Franck to take client to his intake mental health therapy appt 05-22 at 12:30 with Pravin Unger at [facility] in [place]. Pretty plans to f/u with client on s and Sundays and Keya to f/u -Sat. Celi Chavez in the same apartment to f/ u with client as well. Client denied SI, Will n and Intent. RN reports client slept well last night. Client appears mildly confused when discussing current symptoms and old symptoms. Client was future goal oriented and reports declining to take pain medication or addictive medication ie; Xanex. SACK appt. came 05-18 Sat. and client declined drug or alcohol support resources. Client refused home health and MOW's at this time. Discussed depres sive symptoms to family including suicidal behaviors and gave family [place] crisis number and [place] crisis number. Mental Status: General Observations:Client sitting in recliner with family Appearance:Well groomed Apparent Age:Stated age Build:Avg Posture:Rleaxed Attitude/Behavior Demenor:Pleasant, resistant to support at times, agreed on safety plan Activity:Psychomotor retardation/agitation Eye Contact:Avg. Speech:Volume, Clarity, Rate WNL Cognition/Memory:Awake, Oriented X3 with difficulty with short term memory and recall, good fund of knowledge Perceptions:Denied Delusions, Hallucinations, Illuisions Thought Content:Denied SI, HI Thought Process:Tangential Mood:Euthymic, Depressed Affect:Full Judgement and Insight:Limited Treatment Goals/Recommendations/Plan: 1. Client to be dismissed to home with his sister; Keya removing stock piled medication from the home and placing 1 week of medication in medication organizer and taking rest of medication other than i nsulin out of the home and replacing medication weekly. 2. Franck to transport client to 05-22 at 12:30. 3. Family to transport and call number above to assist with transport to medication management appt. that Merle Dinh APRN will call to schedule. 4. Family to check up on pt daily with schedule above to supervise/check-up on client. 5. Gave crisis number to family to call and discussed what symptoms to look for to prevent future crisis. Extracted from: Title: Suicidality f/u Author: Kimberly Marc FLOOR LAYER Date: 05/18/16 In Patient Therapy Consultation Date and Time of Consult: 05-18-16 1200 Reason for Consultation: Safety Eval/Suicide F/u due to intentional overdose/suicide attempt Content of Therapy: Client's sister's ; Franck called and stated safety plan that his agreed on to have client stay with them would not work due them eaving next week for Easter out of town and they had no place f or client to sleep. Safety plan agreed upon eruppted. [facility] who agreed client would not be safe to go home without safety plan on a weekend. Family meeting will be scheduled Friday. Therapeutic Interventions: Phone call Treatment Goals/Recommendations/Plan: Reassess Friday with family meeting for safety plan. Extracted from: Title: Suicidality follow up Author: Kimberly Marc FLOOR LAYER Date: 05/17/16 In Patient Therapy Consultation Date and Time of Consult: 05-17-16 7026-4448 Reason for Consultation: Safety Eval for Intentional Suicide attempt/overdose Content of Therapy: Client reported he has not been sleeping well and has slept 2-3 hrs last night. Client reports decreased depressive symptoms, reporting increased energy , motivation stating, "I walked down the [place] wit h physical therapy 3X and took a shower today, I haven't taken a shower in over a week". Client reports incerasing concentration and appetitie slowly. Client continues to endorse depressed mood and gr ief and loss issues related to his mother's and his child in 1994 at 18 mo. Client denied SI, Plan, Intent, HI. Client is insightful re; depressive symptoms and opiate addiction. Client agrees with safety plan to stay to with his sister; Keya and her administer medication. Client agrees to follow up with [facility]. [facility] attempted to contact [facility] and office closed a t 2:00 and did not contact [facility] at 11:00 with no answer. [facility] will contact [facility] to contact Friday to make med mgmt and indiv. therapy appt. Client future oriented and focused and wanting to fight add iction and depression and agrees with treatment plan. Discussed Home health and client wanted to speak with his sister re; home health to f/u with PT. Client's home medications of Velafaxine 75 mg and [address] D[address] Dr. Rapp and he plans on reordering both of those medications. Therapeutic Interventions: Solution Focused, Reassessment, Safety Contract Mental Status: General Observations:Client in hospital gown sitting in recliner Appearance:Well groomed Apparent Age:Stated age Build:Avg Posture:Relaxed Attitude/Behavior Demenor:Pleasant, cooperative, Motivated, Goal directed Activity:No psychomotor retardation/anxiety Eye Contact:Avg Speech:Volume, Clarity, Rate WNL Cognition/Memory:Awake, Oriented X3 Perceptions:Denied delusions, Hallucinations, Illusions Thought Content:Denied Si, HI Thought Process:Logical, Organized Mood:Depressed Affect:Full Judgement and Insight:Limited Treatment Goals/Recommendations/Plan: 1. SACK assessment for 05-18-16. 2. Safety plan to stay at client's sisters Keya and Keya administering all medication. 3. Client to f/u with [facility] for psych med mgmt and indv. therapy. 4. Home Health if sister agrees to continue to assist with strengthening and conditioning per PT recommendations. 5. Dr. Rapp reordered psychotropic medication of Velafaxine and Trazadone. Extracted from: Title: Phone call Suicide f/u Author: Kimberly Marc FLOOR LAYER Date: 05/17/16 In Patient Therapy Consultation Date and Time of Consult: 05-17-16 1130-12:00 Reason for Consultation: Telephone call from sister Keya who stated she received a text from client that he said he is dismissing today. [facility] Spoke with RN who stated Dr. Rapp stated that client can go home today but then explained client has a DARINEL eval and SACK eval tomorrow and client plans to stay for those appt's. Called sister and explained that client was not leaving today. Sister stated she talked with clients ex-; Pretty and found no support from her or from his son's. Keya stated she could have client dis missed to his home, he would have to sleep on the couch. Keya agreed to administer his medication to client and support client to follow up with [facility] to get their acceptance from depression, SI standpo int if client is able enough to live at home alone. [facility] supported Keya that she is only one in the family to provide support to client. Supported Keya re; "what if he refuses to go to [facility]". LSCSW recommended to motivate if client want's to go home he must go to [facility] for their recommendations for him to return home, and she agreed with this intervention. Treatment Goals/Recommendations/Plan: 1. DARINEL eval scheduled today after RN reports client struggles with cognitive understanding of medication management. 2. Possible HH with PT if client agrees with tx at sister's home at d/c. 3. Client has safety plan if client agrees to stay with sister at discharge and follow up with [facility] for med mgmt and indiv. therapy. 4. LSW to make appt's for [facility] for dismissall. Extracted from: Title: Suicidality follow up Author: Kimberly Marc FLOOR LAYER Date: 05/16/16 In Patient Therapy Consultation Date and Time of Consult: 05-17-16 1030-11:00 Reason for Consultation: Safety Eval due to Suicide attempt by overdose Content of Therapy: Discussed client's addiction of opiates and client past history of stay at [facility] for less than a day and had no other out pt or in pt tx. Client was contraditory stating he wants chaim tment but reports no one will accepts his Medicare insurance for payment. Discussed [facility] is able to assess and assist with grants to get client approp. drug tx if he is wanting treatment. Client agree d with treatment but concerned about finances. LSW will request [facility] wing to assist with tx. Client reported feeling well and denied SI, Plan, Intent and reports, "I just need to get out more and vi sit my grandchildren". Client is wanting to go home. Discussed client lives alone and needs a safety plan to supervise him until he can get psychotropic treatment and individual therapy. Client repo rts, I have tried to stay with others, everyone is too busy". Discussed Pretty, ex- is able to administer clients medication and pt agreed with this. Discussed history of client not being compliant w ith follow up made for him in [address] [facility]. Client reported attending 1X and not going back. Client reported he did not continue due to finances. Discussed [facility] has sliding scale fee and can assist with finances. Client reports he received his psychotropic medications from Dr. Abrams and "she works with me on paying my 20%". Discussed [facility] would also wor k a payment plan as well. Discussed importance of client requiring a psychiatrist to follow his depression and anxiety and individual therapy to assist with coping skills. Client reluctantly agreed an d stated he was aware that he could not return home with no changes made. Client agreed he would speak with sister; Keya regarding a safety plan, place for client to go until he completes his appointme nts and psychiatrist and indv. therapist agree he can go back home alone. [facility] discussed with client's consent communicating with Dr. Alonso re; opiate addiction. Racheal/[phone]/ Racheal reports client has had depressive symptoms for the last 4-5 yrs with symptoms of isolating and sitting inhis chair with blinds closed. Racheal reports client was in a very di rty apartment and tehy moved him 2 mo. ago to a kitchen cleaner apartment hoping this would help his depression. Racheal reports story that his ex- stated that client had called Pretty Alaniz/Sun stating, "He had taken a bunch of pills" and not notified anyone. Racheal reports she received a call from client with slurred speech that he wanted to keep his doctor's apptRobert Asencio and thought this was a strange call a myriam Racheal had her go check on client who found that he had fallen out of his chair and called EMS. Racheal reports her heard client say "Just let me ". Keya states she believes clien t has a problem with his pain medication and over taking his medication. Keya states client hasn't "directly talked to me about suicide". Keya agrees that client was hospitalized at [facility] in pt. and when discharged from [facility] stayed at her house for 3 nights before returning home and she administer his medication. Keya reports client didn't follow up with any mental health appt's du e to feeling like he couldn't afford it and told her "I think I can do it-(get off opiates)on my own". Discussed client has been placed on VC but does not meet criteria due to not actively being SI, Plan, Intent but needs a safety plan to live with someone and follow up at out pt appt's until psychiatrist and indv. therapist agree client can return home safe. Keya stated her son has moved back in to her home and she does not have a room available. Keya reported client 3 children have very little involvement with client and reported one of his sons stated,"he can't take care of hiimself, he need s to go to a snf". Son reported, "He has been addicted to some my whole life". Keya understands client needs to have safety plan to stay with someone or be placed at [facility]. Keya plans on talk ing to clients ex-; Pretty and clients son's with ideas to assist client with a safety plan. Therapeutic Interventions: Re-assessed, Colatteral with clients sister Mental Status: General Observations: Appearance:Well groomed Apparent Age:Stated age Build: Avg Posture:Relaxed Attitude/Behavior Demenor:Pleasant, agitated, arguementative with tx plan Activity:No psychomotor retardation/agitation Eye Contact:Avg Speech:Volume, Clarity, Rate WNL Cognition/Memory:Awake, Oriented X3 Perceptions:Denied delusions, Hallucinations, Illusions Thought Content:Denied SI, Plan, Intent Thought Process:Logical, Organized Mood:Irritable Affect:Full Judgement and Insight:Limited Treatment Goals/Recommendations/Plan: 1. Keya will connect with [facility] re; safety plan for client. If client has a place to go where he has supervision and assistance with compliance with f/u mental health tx client can be d/c with that plan. 2. If client does not have safety plan he will have to be admitted to [facility] until he has safety plan. 2. Keya and Pretty have both agreed to administer client's medication with given client 1 wk in a medication container only and taking all other medication to keep environment safe. 3. [facility] to assist with tx for opiate addiction. 4. Client has agreed to follow up with [facility] for med mgmt and individual therapy.
--- OUTSIDE RECORDS SUMMARY | 2017-07-10 18:54 | External Medical Summary | Continuity of Care Document ---
:1950 [address] [facility] Phone Unavailable Care Team Providers Name Role Phone SHER CHRISTINA M.D. Primary Care Physician Insurance Providers Guarantor Bravo Ortiz Address [address] [place] [address] Payer s Medicare Policy Number [id number] Subscriber's Name Braov Ortiz Parvin Relationship 01 Self / Same As Patient Effective Date 10 Chief Complaint and Reason for Visit Chief Complaint Lethargy Reason for Visit Acute anxiety Opioid abuse Problems Active Problems Medical Problem Onset Date [...] peripheral neuropathy 09/24/2010 Chronic Edema 09/17/2010 Chronic Exertional dyspnea Unknown Acute Gall stones Unknown Acute Hx of diabetes mellitus Unknown Acute Hyperlipidemia 02/26/2011 Chronic Hypertension Unknown Acute Inguinal pain 11/19/2010 Chronic Injury of head 03/06/2011 Chronic LUMBAGO 11/16/2010 Chronic Liver cirrhosis Unknown Acute Morbid obesity Unknown Acute Osteoarthritis 08/20/2010 Chronic Primary dysthymia Unknown Acute Reactive airways dysfunction syndrome 05/13/2011 Chronic 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 Weakness Unknown Acute Past Problems Medical Problem Onset Date Abdominal pain Unknown Acute anxiety Unknown Opioid abuse Unknown Weakness Unknown Medications Current Home Medications Medication Dose Units Route Directions Days Qty Instructions Start Date Aspirin 81 Mg Oral Daily (Aspir-81) 81 6 Mg Tab Insulin 20 Unit Subcutaneously Bedtime Glargine 6 (Lantus) 100 Mg/Ml Inj Lisinopril 10 10 Mg Oral Daily Mg Tab 6 Lorazepam 1 Mg Oral Three Times 12 (Ativan) 1 Mg A Day as Tablet 6 Tab needed for Anxiety Metoprolol 25 Mg Oral Twice A Day Succinate 6 (Toprol Xl) 25 Mg Tab Oxycodone Hcl 10 Mg Oral Every 4 10 Mg Tab Hours As 6 Needed Sennosides-Doc 1 Tab Oral Twice A Day usate Sodium 6 ([place]-S) 1 Tab Tab Simvastatin 20 Mg Oral Bedtime (Zocor) 20 Mg 6 Tab Trazodone Hcl 100 Mg Oral Bedtime 100 Mg Tab 6 Venlafaxine 150 Mg Oral Daily Hcl 75 Mg Tab 6 Past Home Medications Medication Directions Ordered Status [...] Needed 03/09/13 Discontinued Oral Oxycodone W/ Acetaminophen (Percocet Every 6 Hours As Needed 01/07/11 Discontinued 2.5/325) 1 Tab Tab, 3 Tab Oral Oxycodone W/ Acetaminophen (Percocet Every 6 Hours As Needed 12/25/10 Discontinued 2.5/325) 1 Tab Tab, 3 Tab Oral Oxycodone W/ Acetaminophen (Percocet Every 6 Hours As Needed 12/13/10 Discontinued 2.5/325) 1 Tab Tab, 3 Tab Oral Oxycodone W/ Acetaminophen (Percocet Every 6 Hours As Needed 11/29/10 Discontinued 2.5/325) 1 Tab Tab, 3 Tab Oral Oxycodone W/ Acetaminophen (Percocet Every 6 Hours As Needed 11/16/10 Discontinued 2.5/325) 1 Tab Tab, 3 Tab Oral Oxycodone W/ Acetaminophen (Percocet Every 6 Hours As Needed 10/22/10 Discontinued 2.5/325) 1 Tab Tab, 2 Tab Oral Oxycodone W/ Acetaminophen (Percocet Every 6 Hours As Needed 10/08/10 Discontinued 2.5/325) 1 Tab Tab, 2 Tab Oral Oxycodone W/ Acetaminophen (Percocet Every 6 Hours As Needed 09/24/10 Discontinued 2.5/325) 1 Tab Tab, 2 Tab Oral Oxycodone W/ Acetaminophen (Percocet Every 6 Hours As Needed 09/17/10 Discontinued 2.5/325) 1 Tab Tab, 1 Tab Oral Oxycodone W/ Acetaminophen (Percocet Every 6 Hours As Needed 09/10/10 Discontinued 2.5/325) 1 Tab Tab, 1 Tab Oral Oxycodone W/ Acetaminophen (Percocet Every 6 Hours As Needed 09/03/10 Discontinued 2.5/325) 1 Tab Tab, 1 Tab Oral Oxycodone/Acetaminophen [...] Oxycodone/Acetaminophen (Percocet Every 6 Hours As Needed 09/18/12 Discontinued 10/325 Mg) 1 Ea Tab, 1 - 2 Tab Oral Oxycodone/Acetaminophen (Percocet Every 6 Hours As Needed 09/07/12 Discontinued 10/325 Mg) 1 Ea Tab, 1 - 2 Tab Oral Oxycodone/Acetaminophen (Percocet Every 6 Hours As Needed 08/20/12 Discontinued 10/325 Mg) 1 Ea Tab, 1 - 2 Tab Oral Oxycodone/Acetaminophen (Percocet Every 6 Hours As Needed 08/10/12 Discontinued 10/325 Mg) 1 Ea Tab, 1 - 2 Tab Oral Oxycodone/Acetaminophen (Percocet Every 6 Hours As Needed 07/28/12 Discontinued 10/325 Mg) 1 Ea Tab, 1 - 2 Tab Oral Oxycodone/Acetaminophen (Percocet Every 6 Hours As Needed 07/14/12 Discontinued 10/325 Mg) 1 Ea Tab, 1 - 2 Tab Oral Oxycodone/Acetaminophen (Percocet Every 6 Hours As Needed 06/30/12 Discontinued 10/325 Mg) 1 Ea Tab, 1 - 2 Tab Oral Oxycodone/Acetaminophen (Percocet Every 6 Hours As Needed 06/16/12 Discontinued 10/325 Mg) 1 Ea Tab, 1 - 2 Tab Oral Oxycodone/Acetaminophen (Percocet Every 6 Hours As Needed 06/02/12 Discontinued 10/325 Mg) 1 Ea Tab, 1 - 2 Tab Oral Oxycodone/Acetaminophen (Percocet Every 6 Hours As Needed 05/20/12 Discontinued 10/325 Mg) 1 Ea Tab, 1 - 2 Tab Oral Oxycodone/Acetaminophen (Percocet Every 6 Hours As Needed 05/07/12 Discontinued 10/325 Mg) 1 Ea Tab, 1 - 2 Tab Oral Oxycodone/Acetaminophen (Percocet Every 6 Hours As Needed 04/23/12 Discontinued 10/325 Mg) 1 Ea Tab, 1 - 2 Tab Oral Oxycodone/Acetaminophen (Percocet Every 6 Hours As Needed 04/09/12 Discontinued 10/325 Mg) 1 Ea Tab, 1 - 2 Tab Oral Oxycodone/Acetaminophen (Percocet Every 6 Hours As Needed 03/26/12 Discontinued 10/325 Mg) 1 Ea Tab, 1 - 2 Tab Oral Oxycodone/Acetaminophen (Percocet Every 6 Hours As Needed 03/16/12 Discontinued 10/325 Mg) 1 Ea Tab, 1 - 2 Tab Oral Oxycodone/Acetaminophen (Percocet Every 6 Hours As Needed 03/03/12 Discontinued 10/325 Mg) 1 Ea Tab, 1 - 2 Tab Oral Oxycodone/Acetaminophen (Percocet Every 6 Hours As Needed 02/24/12 Discontinued 10/325 Mg) 1 Ea Tab, 1 - 2 Tab Oral Oxycodone/Acetaminophen (Percocet Every 6 Hours As Needed 02/13/12 Discontinued 10/325 Mg) 1 Ea Tab, 1 - 2 Tab Oral Oxycodone/Acetaminophen (Percocet Every 6 Hours As Needed 01/30/12 Discontinued 10/325 Mg) 1 Ea Tab, 1 - 2 Tab Oral Oxycodone/Acetaminophen (Percocet Every 6 Hours As Needed 01/21/12 Discontinued 10/325 Mg) 1 Ea Tab, 1 - 2 Tab Oral Oxycodone/Acetaminophen (Percocet Every 6 Hours As Needed 01/06/12 Discontinued 10/325 Mg) 1 Ea Tab, 1 - 2 Tab Oral Oxycodone/Acetaminophen (Percocet Every 6 Hours As Needed 12/30/11 Discontinued 10/325 Mg) 1 Ea Tab, 1 - 2 Tab Oral Oxycodone/Acetaminophen (Percocet Every 6 Hours As Needed 12/17/11 Discontinued 10/325 Mg) 1 Ea Tab, 1 - 2 Tab Oral Oxycodone/Acetaminophen (Percocet Every 6 Hours As Needed 12/04/11 Discontinued 10/325 Mg) 1 Ea Tab, 1 - 2 Tab Oral Oxycodone/Acetaminophen (Percocet Every 6 Hours As Needed 11/21/11 Discontinued 10/325 Mg) 1 Ea Tab, 1 - 2 Tab Oral Oxycodone/Acetaminophen (Percocet Every 6 Hours As Needed 11/06/11 Discontinued 10/325 Mg) 1 Ea Tab, 1 - 2 Tab Oral Oxycodone/Acetaminophen (Percocet Every 6 Hours As Needed 10/25/11 Discontinued 10/325 Mg) 1 Ea Tab, 1 - 2 Tab Oral Oxycodone/Acetaminophen (Percocet Every 6 Hours As Needed 10/24/11 Discontinued 10/325 Mg) 1 Ea Tab, 1 - 2 Tab Oral Oxycodone/Acetaminophen (Percocet Every 6 Hours As Needed 10/09/11 Discontinued 10/325 Mg) 1 Ea Tab, 1 - 2 Tab Oral Oxycodone/Acetaminophen (Percocet Every 6 Hours As Needed 09/30/11 Discontinued 10/325 Mg) 1 Ea Tab, 1 - 2 Tab Oral Oxycodone/Acetaminophen (Percocet Every 6 Hours As Needed 09/16/11 Discontinued 10/325 Mg) 1 Ea Tab, 2 Tab Oral Oxycodone/Acetaminophen (Percocet Every 6 Hours As Needed 09/02/11 Discontinued 10/325 Mg) 1 Ea Tab, 2 Tab Oral Oxycodone/Acetaminophen (Percocet Every 6 Hours As Needed 09/02/11 Discontinued 10/325 Mg) 1 Ea Tab, 2 Tab Oral Oxycodone/Acetaminophen (Percocet Every 6 Hours As Needed 08/19/11 Discontinued 10/325 Mg) 1 Ea Tab, 2 Tab Oral Oxycodone/Acetaminophen (Percocet Every 6 Hours As Needed 08/02/11 Discontinued 10/325 Mg) 1 Ea Tab, 2 Tab Oral Oxycodone/Acetaminophen (Percocet Every 6 Hours As Needed 07/22/11 Discontinued 10/325 Mg) 1 Ea Tab, 2 Tab Oral Oxycodone/Acetaminophen (Percocet Every 4 Hours As Needed 07/22/11 Discontinued 10/325 Mg) 1 Ea Tab, 1 Tab Oral Oxycodone/Acetaminophen (Percocet Every 4 Hours As Needed 07/09/11 Discontinued 10/325 Mg) 1 Ea Tab, 1 Tab Oral Oxycodone/Acetaminophen (Percocet Every 4 Hours As Needed 06/24/11 Discontinued 10/325 Mg) 1 Ea Tab, 1 Tab Oral Oxycodone/Acetaminophen (Percocet Every 4 Hours As Needed 06/10/11 Discontinued 10/325 Mg) 1 Ea Tab, 1 Tab Oral Oxycodone/Acetaminophen (Percocet Every 6 Hours As Needed 06/10/11 Discontinued 10/325 Mg) 1 Ea Tab, 1 Tab Oral Oxycodone/Acetaminophen (Percocet Every 6 Hours As Needed 05/21/11 Discontinued 10/325 Mg) 1 Ea Tab, 2 Tab Oral Oxycodone/Acetaminophen (Percocet Every 6 Hours As Needed 05/13/11 Discontinued 10/325 Mg) 1 Ea Tab, 2 Tab Oral Oxycodone/Acetaminophen (Percocet Every 6 Hours As Needed 04/29/11 Discontinued 10/325 Mg) 1 Ea Tab, 2 Tab Oral Oxycodone/Acetaminophen (Percocet Every 6 Hours As Needed 04/16/11 Discontinued 10/325 Mg) 1 Ea Tab, 2 Tab Oral Oxycodone/Acetaminophen (Percocet Every 6 Hours As Needed 04/03/11 Discontinued 10/325 Mg) 1 Ea Tab, 2 Tab Oral Oxycodone/Acetaminophen (Percocet Every 6 Hours As Needed 03/20/11 Discontinued 10/325 Mg) 1 Ea Tab, 2 Tab Oral Oxycodone/Acetaminophen (Percocet Every 6 Hours As Needed 03/06/11 Discontinued 10/325 Mg) 1 Ea Tab, 2 Tab Oral Oxycodone/Acetaminophen (Percocet Every 6 Hours As Needed 02/21/11 Discontinued 10/325 Mg) 1 Ea Tab, 2 Tab Oral Oxycodone/Acetaminophen (Percocet Every 6 Hours As Needed 02/07/11 Discontinued 10/325 Mg) 1 Ea Tab, 2 Tab Oral Oxycodone/Acetaminophen (Percocet Every 6 Hours As Needed 01/25/11 Discontinued 10/325 Mg) 1 Ea Tab, 2 Tab Oral Oxycodone/Acetaminophen (Percocet Every 6 Hours As Needed 01/14/11 Discontinued 10/325 Mg) 1 Ea Tab, 2 Tab Oral Oxycodone/Acetaminophen (Percocet Every 6 Hours As Needed 06/12/08 Discontinued 7.5/325) 1 Ea Tab, 1 - 2 Tab Oral Oxycodone/Acetaminophen (Percocet Twice A Day 08/21/09 Discontinued 10/325 Mg) 1 Ea Tab, 1 Ea Oral Prednisone 20 [...] Applicable Not Applicable Smoking Status Former smoker 10/21/2015 10:04pm Not Applicable Not Applicable Query Response Start Date Stop Date Smoking Status Former smoker Hospital Discharge Instructions No hospital discharge instructions. Plan of Care Discharge Date 10/21/15 11:04pm Disposition 01 HOME, SELF-CARE Condition at Discharge Stable Instructions/Education Provided Generalized Anxiety Disorder (ED) Prescriptions See Medication Section Referrals SHER CHRISTINA M.D. Address: [address] [place] [id number] Additional Instructions/Education Take Ativan as needed to help with anxiety and agitation. Only take your pain medication as prescribed. [facility] Return to the ER if with thoughts about hurting yourself or others.
Functional Status No functional status results. Allergies, Adverse Reactions, Alerts No known allergies. 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 Lot Number Material Control Analyst Reason Number Influenza 11/16/10 Administered 1 [id number] [employer]UR Vaccine, Inactivated Influenza 12/13/11 Administered 2 [id number] [employer] P[employer] Vaccine, Inactivated Vital Signs Acute Vital Signs Vital Response Date/Time Blood Pressure 146/94 mm Hg 10/21/2015 11:04pm Blood Pressure Mean 61 mm Hg 08/17/2014 11:10am Blood Pressure Mean 111 mm Hg 10/21/2015 11:04pm Temperature (Fahrenheit) 97.7 degrees F (96.0 - 99.9) 10/02/2015 2:24pm Temperature (Calculated Celsius) 36.81940 degrees C 10/02/2015 2:24pm Temperature Source Oral 08/17/2014 11:14am Temperature Source Oral 10/02/2015 2:24pm Temp 97.0 degrees F (96.0 - 99.9) 08/17/2014 11:08am Temperature (Calculated Celsius) 36.84140 degrees C 08/17/2014 11:08am Pulse Pulse Rate (adult) 74 bpm (60 - 100) 06/11/2015 4:50pm Pulse Rate (adult) 59 bpm (60 - 100) 08/17/2014 11:10am Pulse Rate: ED 72 bpm 10/21/2015 11:04pm Respiratory Rate 18 breaths per minute (10 - 20) 10/21/2015 11:04pm Respiratory Rate 16 bpm (10 - 20) 08/17/2014 11:10am Height (Feet) 5 ft 10/21/2015 10:00pm Height (Inches) 11.0 in. 10/21/2015 10:00pm Weight (Pounds) 285.0 lbs 10/21/2015 10:00pm Height 5 ft 11 in 10/21/2015 10:00pm Weight 285 lb 10/21/2015 10:00pm Body Mass Index 39.7 kg/m^2 10/21/2015 10:00pm Ambulatory Vital Signs Vital Response Date/Time Height [...] mg/dL H 0.1-0.8 12/16/2013 12/16/2013 1:46pm 2:58pm Bedside Glucose 173 mg/dL H 70-120 06/11/2015 06/11/2015 Notify 5:05pm 5:09pm Nurse & #10; White Blood Count 6.6 K/uL 5.0-10.0 10/02/2015 10/02/2015 2:57pm 3:05pm Red Blood Count 5.72 M/uL H 4.60-5.40 10/02/2015 10/02/2015 2:57pm 3:05pm Hemoglobin 18.2 g/dL H 14.0-18.0 10/02/2015 10/02/2015 2:57pm 3:05pm Hematocrit 50.4 % 40.0-54.0 10/02/2015 10/02/2015 2:57pm 3:05pm Mean Corpuscular 88.1 fL 80.0-94.0 10/02/2015 10/02/2015 Volume 2:57pm 3:05pm Mean Corpuscular 31.8 pg 26.0-33.0 10/02/2015 10/02/2015 Hemoglobin 2:57pm 3:05pm Mean Corpuscular 36.1 g/dL H 31.0-36.0 10/02/2015 10/02/2015 Hemoglobin Concent 2:57pm 3:05pm Red Cell 12.8 % 11.5-14.5 10/02/2015 10/02/2015 Distribution Width 2:57pm 3:05pm RDW Standard 41.3 fL 35.1-43.9 10/02/2015 10/02/2015 Deviation 2:57pm 3:05pm Platelet Count 129 K/uL L 130-400 10/02/2015 10/02/2015 2:57pm 3:05pm Mean Platelet 8.3 fL 7.0-11.0 10/02/2015 10/02/2015 Volume 2:57pm 3:05pm Neutrophils (%) 62.7 % 42.0-75.0 10/02/2015 10/02/2015 (Auto) 2:57pm 3:05pm Lymphocytes (%) 26.7 % 16.0-44.0 10/02/2015 10/02/2015 (Auto) 2:57pm 3:05pm Monocytes (%) 8.2 % 2.0-9.0 10/02/2015 10/02/2015 (Auto) 2:57pm 3:05pm Eosinophils (%) 1.5 % 0-7.0 10/02/2015 10/02/2015 (Auto) 2:57pm 3:05pm Basophils (%) 0.6 % 0-1 10/02/2015 10/02/2015 (Auto) 2:57pm 3:05pm Immature 0.3 % 0-0.5 10/02/2015 10/02/2015 Granulocyte % 2:57pm 3:05pm (Auto) Nucleated Red 0.0 /100WBC 0-0 10/02/2015 10/02/2015 Blood Cells % 2:57pm 3:05pm Neutrophils # 4.1 K/uL 1.9-8.0 10/02/2015 10/02/2015 (Auto) 2:57pm 3:05pm Lymphocytes # 1.8 K/uL 0.9-5.2 10/02/2015 10/02/2015 (Auto) 2:57pm 3:05pm Monocytes # (Auto) 0.5 K/uL 0.16-1.0 10/02/2015 10/02/2015 2:57pm 3:05pm Eosinophils # 0.1 K/uL 0-0.8 10/02/2015 10/02/2015 (Auto) 2:57pm 3:05pm Basophils # (Auto) 0.0 K/uL 0-0.2 10/02/2015 10/02/2015 2:57pm 3:05pm Immature 0.02 K/uL 0-0.40 10/02/2015 10/02/2015 Granulocyte # 2:57pm 3:05pm (Auto) Nucleated Red 0.00 K/uL 0.0-0.012 10/02/2015 10/02/2015 Blood Cells # 2:57pm 3:05pm Urine Color YELLOW 10/02/2015 10/02/2015 3:00pm 3:23pm Urine Appearance CLEAR 10/02/2015 10/02/2015 3:00pm 3:23pm Urine Glucose (UA) 3+ NEGATIVE 10/02/2015 10/02/2015 3:00pm 3:23pm Urine Bilirubin NEGATIVE NEGATIVE 10/02/2015 10/02/2015 3:00pm 3:23pm Urine Ketones NEGATIVE NEGATIVE 10/02/2015 10/02/2015 3:00pm 3:23pm Urine Specific >=1.030 1.005-1.030 10/02/2015 10/02/2015 [place] 3:00pm 3:23pm Urine Occult Blood TRACE-INTA NEGATIVE 10/02/2015 10/02/2015 CT 3:00pm 3:23pm Urine pH 5.5 4.5-8.0 10/02/2015 10/02/2015 3:00pm 3:23pm Urine Protein NEGATIVE NEGATIVE 10/02/2015 10/02/2015 3:00pm 3:23pm Urine Urobilinogen 0.2 E.U./dL 0.2-1.0 10/02/2015 10/02/2015 3:00pm 3:23pm Urine Nitrate NEGATIVE NEGATIVE 10/02/2015 10/02/2015 3:00pm 3:23pm Urine Leukocyte NEGATIVE NEGATIVE 10/02/2015 10/02/2015 Esterase 3:00pm 3:23pm Urine RBC 1-3 /hpf H NONE 10/02/2015 10/02/2015 3:00pm 3:26pm Urine WBC 0-1 /hpf NONE 10/02/2015 10/02/2015 3:00pm 3:26pm Urine Epithelial NONE /lpf 10/02/2015 10/02/2015 Cells 3:00pm 3:26pm Urine Bacteria NONE /hpf NONE 10/02/2015 10/02/2015 3:00pm 3:26pm Random Glucose 308 mg/dL H 65-115 10/02/2015 10/02/2015 2:57pm 3:18pm Blood Urea 18 mg/dL 8-25 10/02/2015 10/02/2015 Nitrogen 2:57pm 3:18pm Creatinine 0.91 mg/dL 0.9-1.6 10/02/2015 10/02/2015 2:57pm 3:18pm Glomerular 83.88 mL/min 10/02/2015 10/02/2015 MULTIPLY RESULT BY 1.210 IF THE PATIENT IS -IVORIAN
Filtration Rate 2:57pm 3:18pm Units are mL/min/1.73 m2
Calc
> 60 Normal kidney function
30-59 Moderately decreased kidney function
15-29 Severely decreased kidney function
<15 End-stage kidney failure
BUN/Creatinine 19.8 10/02/2015 10/02/2015 Ratio 2:57pm 3:18pm Sodium Level 135 mEq/L 133-145 10/02/2015 10/02/2015 2:57pm 3:18pm Potassium Level 4.2 mEq/L 3.5-5.1 10/02/2015 10/02/2015 2:57pm 3:18pm Chloride Level 104 mEq/L 98-116 10/02/2015 10/02/2015 2:57pm 3:18pm Carbon Dioxide 20 mEq/L L 22-34 10/02/2015 10/02/2015 Level 2:57pm 3:18pm Anion Gap 15.2 H 6-13 10/02/2015 10/02/2015 2:57pm 3:18pm Calcium Level 8.9 mg/dL 8.2-10.6 10/02/2015 10/02/2015 2:57pm 3:18pm Total Protein 6.9 gm/dL 6.0-8.4 10/02/2015 10/02/2015 2:57pm 3:18pm Albumin 3.7 gm/dL 3.2-5.0 10/02/2015 10/02/2015 2:57pm 3:18pm Globulin 3.2 gm/dL H 2.0-3.0 10/02/2015 10/02/2015 2:57pm 3:18pm Albumin/Globulin 1.2 L 1.4-2.4 10/02/2015 10/02/2015 Ratio 2:57pm 3:18pm Total Bilirubin 1.4 mg/dL H 0.1-1.3 10/02/2015 10/02/2015 2:57pm 3:18pm Alkaline 98 U/L 35-125 10/02/2015 10/02/2015 Phosphatase 2:57pm 3:18pm Aspartate Amino 55 U/L H 5-40 10/02/2015 10/02/2015 Transf (AST/SGOT) 2:57pm 3:18pm Alanine 78 U/L H 5-40 10/02/2015 10/02/2015 Aminotransferase 2:57pm 3:18pm (ALT/SGPT) Troponin I 0.00 ng/mL 0.0-0.02 10/02/2015 10/02/2015 2:57pm 3:22pm Lipase 28 U/L 8-57 10/02/2015 10/02/2015 2:57pm 3:18pm B-Type Natriuretic 40 pg/mL 15-100 10/02/2015 10/02/2015 Peptide 2:57pm 3:42pm Procedures Procedure Status Date Provider(s) THER/PROPH/DIAG INJ SC/IM Completed 12/27/13 ASHLEY EARL M.D. DIAGNOSTIC COLONOSCOPY Completed 08/17/14 REMBERTO THOMAS M.D. THER/PROPH/DIAG INJ IV PUSH Completed 04/14/15 YA THOMAS M.D. HYDRATE IV INFUSION ADD-ON Completed 04/14/15 YA THOMAS M.D. Encounters Encounter Location Arrival/Admit Date Discharge/Depart Date Attending Provider Departed Trina Torres 10/21/15 9:57pm 10/21/15 11:04pm DONOVAN Emergency Room [facility] Bhavani VELAZQUEZ M.D. Departed Trina Torres 10/02/15 2:22pm 10/02/15 4:50pm DONOVAN, Emergency Room [facility]. Bhavani VELAZQUEZ M.D. Registered Trina Torres 09/27/15 11:23am CARRI, Juliana [facility] SHER Beckham M.D. Registered Trina Torres 09/14/15 2:55pm [place] Referred Mem. [facility] SHER Beckham M.D. Departed Trina Torres 06/11/15 4:32pm 06/11/15 10:14pm DONOVAN, Emergency Room Mem. [facility] MRACUS Carter Departed Trina Torres 04/14/15 6:02am 04/14/15 7:30am YA THOMAS Emergency Room Mem. [facility] Vinicius Carter Departed Trina Torres 08/17/14 9:03am 08/17/14 11:45am REMBERTO THOMAS Surgical [facility] REM[facility]O THOMAS 08/02/14 2:45pm REMBERTO THOMAS M.D. Registered Remberto Thomas 08/02/14 2:39pm REMBERTO THOMAS M.D. Registered Trian Torres 04/20/14 4:36pm [facility] 02/23/14 10:52am ANTOINETTE DURAN Referred [facility] 01/03/14 1:50pm 01/03/14 4:09pm YA THOMAS Emergency Room [facility]. [facility] Vinicius Axel Departed Trina Torres 12/27/13 4:11pm 12/27/13 6:19pm DONOVAN Emergency Room [facility]. [facility] MARCUS Axel Departed Trina Torres 12/23/13 12:18am 12/23/13 1:11am SHAISTA Emergency Room [facility]. [facility] EDYTA Craft M.D. Registered Trina Torres 12/16/13 1:42pm ANTOINETTE DURAN [facility] 12/09/13 8:33am 12/09/13 11:56am ANTOINETTE DURAN [facility] N[facility]O Sh[facility] 10/21/13 1:15pm RUKHSANA MILIAN MD Registered Nano Sharma 10/21/13 1:15pm Frances MILIAN MD Departed Trina Torres 04/30/13 8:13pm 04/30/13 9:31pm CLARY NGUYEN Emergency Room [facility] Raul Recent Diagnosis
--- OUTSIDE RECORDS SUMMARY | 2017-07-10 18:54 | External Medical Summary | Continuity of Care Document ---
:1950 Author Organization Trina Torres [facility] Phone Unavailable Care Team Providers Name Role Phone SHER CHRISTINA M.D. Primary Care Physician Insurance Providers Guarantor Bravo Ortiz Address [address] [address] Payer s Medicare Policy Number [id number] Subscriber's Name Bravo Ortiz Relationship 01 Self / Same As Patient Effective Date 10 Advance Directives No advance directive information available. Chief Complaint and Reason for Visit Chief Complaint Overdose Intentional Reason for Visit Intentional opiate overdose [id number] Problems Medical Problem Onset Date Status Abdominal [...] Acute Past Problems Medical Problem Onset Date Status Abdominal pain Unknown Acute Acute anxiety Unknown Acute Anxiety Unknown Acute Anxiety Unknown Acute Dyspnea Unknown Acute Hx of coronary artery disease Unknown Acute Hx of diabetes mellitus Unknown Acute Hx of diabetes mellitus Unknown Acute Intentional opiate overdose Unknown Acute Major depression Unknown Acute Major depression Unknown Acute Narcotic addiction Unknown Acute Narcotic addiction Unknown Acute Opiate addiction Unknown Acute Opioid abuse Unknown Acute Opioid abuse Unknown Acute Pre-hypertension Unknown Acute Rotator cuff tendinitis Unknown Acute Substance abuse or dependence Unknown Acute Suicidal ideation Unknown Acute Suicide ideation Unknown Acute Weakness Unknown Acute Medications Current Home Medications Medication Dose Units Route Directions Days Qty Instructions Start Date Alprazolam 2 Mg 1 Mg Oral Q 4 Hrs Tab Aspirin 81 Mg Oral Daily (Aspir-81) 81 Mg Tab Insulin 20 Unit Subcutaneously Bedtime Glargine (Lantus) 100 Mg/Ml Inj Lisinopril 10 10 Mg Oral Daily Mg Tab Metformin Hcl 500 Mg Oral Daily 500 Mg Tab Metoprolol 25 Mg Oral Twice A Day Succinate (Toprol Xl) 25 Mg Tab Oxycodone Hcl 15 Mg Oral 1 Five Times 15 Mg Tab Daily Sennosides-Docu 1 Tab Oral Twice A Day sate Sodium (Senexon-S) 1 Tab Tab Simvastatin 20 Mg Oral Bedtime (Zocor) 20 Mg Tab Venlafaxine Hcl 150 Mg Oral Daily 75 Mg Tab Past Home Medications Medication Directions Ordered Status Alprazolam 1 Mg Tab, 1 Mg Oral Q4hr Discontinued Alprazolam 2 Mg Tab, 1 Tab [...] Mg Tab, Oral Three Times A Day Discontinued Aspirin 81 Mg Chw, 1 Tab Oral Daily 01/29/11 Discontinued Aspirin 81 Mg Chw, 81 Mg Oral Daily Discontinued Azithromycin (Zithromax Z-Servando) 1 Tab As [...] Subcutaneously Insulin Glargine (Lantus) 100 Mg/Ml Bedtime Discontinued Inj, 20 Units Subcutaneously Lisinopril 20 [...] 500 Mg Tab, Oral Twice A Day Discontinued Methylphenidate Hcl (Ritalin) 10 Mg Daily [...] Intramuscular Metoprolol Succinate (Toprol Xl) 50 Daily Discontinued Mg Tab, 50 Mg Oral Metoprolol [...] Discontinued Rosuvastatin Calcium (Crestor) 10 Mg Daily Discontinued Tab, Simvastatin 20 Mg Tab, 1 [...] Applicable Not Applicable Smoking Status Former smoker 07/09/2017 11:26pm Not Applicable Not Applicable Smoking Status Start Date Stop Date Former smoker Hospital Discharge Instructions No hospital discharge instruction information available. Plan of Care Discharge Date 07/10/17 10:33am [facility] Condition at Discharge Improved/Stable Prescriptions See Medication Section Referrals SHER CHRISTINA M.D. Address: [address] [address] Additional Instructions/Education Transfer to [place] Functional Status No functional status information available. Allergies, Adverse Reactions, Alerts No known allergies. 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 Lot Number Nurse Reviewer Reason Number Influenza 11/16/10 Administered 1 [id number] SANOFI PASTEUR Vaccine, Inactivated Influenza 12/13/11 Administered 2 [id number] [employer]i Pasteur Vaccine, Inactivated Vital Signs Acute Vital Signs Vital Response Date/Time Blood Pressure 179/89 mm Hg 07/10/2017 10:15am Blood Pressure Mean 119 mm Hg 07/10/2017 10:15am Temperature (Fahrenheit) 98.4 degrees F (96.0 - 99.9) 07/09/2017 11:04pm Temperature (Calculated Celsius) 36.08770 degrees C 07/09/2017 11:04pm Temperature Source Oral 07/09/2017 11:04pm Pulse Pulse Rate (adult) 112 bpm (60 - 100) 07/09/2017 11:40pm Pulse Rate: ED 100 bpm 07/10/2017 10:15am Respiratory Rate 18 breaths per minute (10 - 20) 07/10/2017 9:30am Height (Feet) 5 ft 07/09/2017 11:04pm Height (Inches) 11.0 in. 07/09/2017 11:04pm Weight (Pounds) 235.7 lbs 07/09/2017 11:04pm Height 5 ft 11 in 07/09/2017 11:04pm Weight 235.70 lb 07/09/2017 11:04pm Body Mass Index 32.9 kg/m^2 07/09/2017 11:04pm Ambulatory Vital Signs Vital Response Date/Time Height [...] Flags Reference Collection Result Comments Date/Time Date/Time Lipase 28 U/L 8-57 10/02/2015 10/02/2015 2:57pm 3:18pm B-Type 40 pg/mL 15-100 10/02/2015 10/02/2015 Natriuretic 2:57pm 3:42pm Peptide Urine Color YELLOW 10/28/2015 10/28/2015 8:10am 8:25am Urine SL CLOUDY 10/28/2015 10/28/2015 Appearance 8:10am 8:25am Urine TRACE NEGATIVE 10/28/2015 10/28/2015 Glucose (UA) 8:10am 8:25am Urine NEGATIVE NEGATIVE 10/28/2015 10/28/2015 Bilirubin 8:10am 8:25am Urine TRACE NEGATIVE 10/28/2015 10/28/2015 Ketones 8:10am 8:25am Urine >=1.030 1.005-1.030 10/28/2015 10/28/2015 Specific 8:10am 8:25am [place] Urine Occult NEGATIVE NEGATIVE 10/28/2015 10/28/2015 Blood 8:10am 8:25am Urine pH 5.5 4.5-8.0 10/28/2015 10/28/2015 8:10am 8:25am Urine NEGATIVE NEGATIVE 10/28/2015 10/28/2015 Protein 8:10am 8:25am Urine 1.0 E.U./dL 0.2-1.0 10/28/2015 10/28/2015 Urobilinogen 8:10am 8:25am Urine NEGATIVE NEGATIVE 10/28/2015 10/28/2015 Nitrate 8:10am 8:25am Urine NEGATIVE NEGATIVE 10/28/2015 10/28/2015 Leukocyte 8:10am 8:25am Esterase Urine RBC 0-1 /hpf NONE 10/28/2015 10/28/2015 8:10am 8:26am Urine WBC 1-3 /hpf NONE 10/28/2015 10/28/2015 8:10am 8:26am Urine RARE /lpf 10/28/2015 10/28/2015 Epithelial 8:10am 8:26am Cells Urine 3+ /hpf H NONE 10/28/2015 10/28/2015 THIS SPECIMEN MEETS MEDICAL STAFF CRITERIA Bacteria 8:10am 8:26am FOR A URINE CULTURE. A CULTURE HAS BEEN SET. Urine 2+ 10/28/2015 10/28/2015 Amorphous 8:10am 8:26am Sediment D-Dimer 306 ng/mL H 0-230 02/09/2016 02/09/2016 Results <230 ng/mL yeild a negative Quantitative 4:31pm 4:59pm predictability for DVT or PE (PE/DVT) Cholesterol 141 mg/dL 120-200 03/27/2016 03/27/2016 Level 12:40pm 2:32pm Triglyceride 110 mg/dL 45-150 03/27/2016 03/27/2016 s Level 12:40pm 2:32pm LDL 64 mg/dL 25-100 03/27/2016 03/27/2016 Cholesterol 12:40pm 2:32pm HDL 55 mg/dL 40-80 03/27/2016 03/27/2016 Cholesterol 12:40pm 2:32pm VLDL 22.0 5-40 03/27/2016 03/27/2016 Cholesterol 12:40pm 2:32pm Cholesterol 2.563 03/27/2016 03/27/2016 Ratio 12:40pm 2:32pm (LDL/HDL) Hemoglobin 7.6 % H 4.0-6.0 03/27/2016 03/27/2016 A1c 12:40pm 2:20pm Troponin I 0.01 ng/mL 0.0-0.02 02/20/2017 02/20/2017 8:28am 9:04am Prothrombin 11.7 SECONDS 9.0-12.0 06/10/2017 06/10/2017 Time 9:51am 10:35am Prothromb 1.06 L 2.0-3.0 06/10/2017 06/10/2017 Time THERAPEUTIC 9:51am 10:35am Internationa l Ratio Tumor Marker 5.0 IU/mL 0.0-8.8 06/10/2017 06/10/2017 Alpha-Fetoprotein performed at [facility], [address], [place], [place] Alpha 9:51am 11:44pm [id number] [employer] Operator Vandana Conklin DO Fetoprotein Hepatitis C Not IU/mL Negative 06/10/2017 06/11/2017 RNA (DNA Detected 9:51am 2:12pm PCR) Hepatitis C Not 06/10/2017 06/11/2017 This test is for monitoring of HCV positive patients only and RNA (PCR) Applicable 9:51am 2:12pm should not be used as a screening test for HCV infection. log10 Hepatitis C RNA performed at [facility], [address], [place] [address] Lye Peel Operator Vandana Conklin DO White Blood 9.9 K/uL 5.0-10.0 07/09/2017 07/09/2017 Count 11:05pm 11:26pm Red Blood 5.75 M/uL H 4.60-5.40 07/09/2017 07/09/2017 Count 11:05pm 11:26pm Hemoglobin 18.0 g/dL 14.0-18.0 07/09/2017 07/09/2017 11:05pm 11:26pm Hematocrit 51.3 % 40.0-54.0 07/09/2017 07/09/2017 11:05pm 11:26pm Mean 89.2 fL 80.0-94.0 07/09/2017 07/09/2017 Corpuscular 11:05pm 11:26pm Volume Mean 31.3 pg 26.0-33.0 07/09/2017 07/09/2017 Corpuscular 11:05pm 11:26pm Hemoglobin Mean 35.1 g/dL 31.0-36.0 07/09/2017 07/09/2017 Corpuscular 11:05pm 11:26pm Hemoglobin Concent Red Cell 12.7 % 11.5-14.5 07/09/2017 07/09/2017 Distribution 11:05pm 11:26pm Width RDW Standard 41.3 fL 35.1-43.9 07/09/2017 07/09/2017 Deviation 11:05pm 11:26pm Platelet 203 K/uL 130-400 07/09/2017 07/09/2017 Count 11:05pm 11:26pm Mean 8.4 fL 7.0-11.0 07/09/2017 07/09/2017 Platelet 11:05pm 11:26pm Volume Neutrophils 69.9 % 42.0-75.0 07/09/2017 07/09/2017 (%) (Auto) 11:05pm 11:26pm Lymphocytes 20.8 % 16.0-44.0 07/09/2017 07/09/2017 (%) (Auto) 11:05pm 11:26pm Monocytes 7.6 % 2.0-9.0 07/09/2017 07/09/2017 (%) (Auto) 11:05pm 11:26pm Eosinophils 0.6 % 0-7.0 07/09/2017 07/09/2017 (%) (Auto) 11:05pm 11:26pm Basophils 0.7 % 0-1 07/09/2017 07/09/2017 (%) (Auto) 11:05pm 11:26pm Immature 0.4 % 0-0.5 07/09/2017 07/09/2017 Granulocyte 11:05pm 11:26pm % (Auto) Nucleated 0.0 /100WBC 0-0 07/09/2017 07/09/2017 Red Blood 11:05pm 11:26pm Cells % Neutrophils 6.9 K/uL 1.9-8.0 07/09/2017 07/09/2017 # (Auto) 11:05pm 11:26pm Lymphocytes 2.1 K/uL 0.9-5.2 07/09/2017 07/09/2017 # (Auto) 11:05pm 11:26pm Monocytes # 0.8 K/uL 0.16-1.0 07/09/2017 07/09/2017 (Auto) 11:05pm 11:26pm Eosinophils 0.1 K/uL 0-0.8 07/09/2017 07/09/2017 # (Auto) 11:05pm 11:26pm Basophils # 0.1 K/uL 0-0.2 07/09/2017 07/09/2017 (Auto) 11:05pm 11:26pm Immature 0.04 K/uL 0-0.40 07/09/2017 07/09/2017 Granulocyte 11:05pm 11:26pm # (Auto) Nucleated 0.00 K/uL 0.0-0.012 07/09/2017 07/09/2017 Red Blood 11:05pm 11:26pm Cells # Random 257 mg/dL H 65-115 07/09/2017 07/09/2017 Glucose 11:05pm 11:40pm Bedside 310 mg/dL H 70-120 07/10/2017 07/10/2017 Notify Nurse Glucose 9:23am 10:14am Blood Urea 27 mg/dL H 8-25 07/09/2017 07/09/2017 Nitrogen 11:05pm 11:40pm Creatinine 1.27 mg/dL 0.9-1.6 07/09/2017 07/09/2017 11:05pm 11:40pm Glomerular 56.92 mL/min 07/09/2017 07/09/2017 MULTIPLY RESULT BY 1.210 IF THE PATIENT IS -ZAMBIAN Filtration 11:05pm 11:40pm Units are mL/min/1.73 m2 Rate Calc > 60 Normal kidney function 30-59 Moderately decreased kidney function 15-29 Severely decreased kidney function <15 End-stage kidney failure BUN/Creatini 21.3 07/09/2017 07/09/2017 ne Ratio 11:05pm 11:40pm Sodium Level 138 mEq/L 133-145 07/09/2017 07/09/2017 11:05pm 11:40pm Potassium 4.5 mEq/L 3.5-5.1 07/09/2017 07/09/2017 Level 11:05pm 11:40pm Chloride 104 mEq/L 98-116 07/09/2017 07/09/2017 Level 11:05pm 11:40pm Carbon 21 mEq/L L 22-34 07/09/2017 07/09/2017 Dioxide 11:05pm 11:40pm Level Anion Gap 17.5 H 6-13 07/09/2017 07/09/2017 11:05pm 11:40pm Calcium 9.0 mg/dL 8.2-10.6 07/09/2017 07/09/2017 Level 11:05pm 11:40pm Total 8.1 gm/dL 6.0-8.4 07/09/2017 07/09/2017 Protein 11:05pm 11:40pm Albumin 4.4 gm/dL 3.2-5.0 07/09/2017 07/09/2017 11:05pm 11:40pm Globulin 3.7 gm/dL H 2.0-3.0 07/09/2017 07/09/2017 11:05pm 11:40pm Albumin/Glob 1.2 L 1.4-2.4 07/09/2017 07/09/2017 ulin Ratio 11:05pm 11:40pm Total 2.2 mg/dL H 0.1-1.3 07/09/2017 07/09/2017 Bilirubin 11:05pm 11:40pm Alkaline 92 U/L 35-125 07/09/2017 07/09/2017 Phosphatase 11:05pm 11:40pm Aspartate 31 U/L -07/09/2017 07/09/2017 Amino Transf 11:05pm 11:40pm (AST/SGOT) Alanine 32 U/L 07/09/2017 07/09/2017 Aminotransfe 11:05pm 11:40pm rase (ALT/SGPT) Acetaminophe 3.3 ug/mL 07/10/2017 07/10/2017 Therapeutic Levels in serum/plasma 10-30 ug/ml n Level 1:40am 2:10am Toxic Levels: 4 hrs post ingestion >150 ug/ml 8 hrs post ingestion >75 ug/ml 12 hrs post ingestion >40 ug/ml Salicylates < 4.0 mg/dl 07/09/2017 07/09/2017 NORMAL LEVELS=< 4 mg/dL Level 11:05pm 11:40pm THERAPEUTIC LEVEL=< 20 mg/dL TOXIC LEVEL=> 30 mg/dL LETHAL LEVEL=> 60 mg/dL Ethyl 1.9 mg/dl 0-10 07/09/2017 07/09/2017 A level below Alcohol 11:05pm 11:40pm 10 mg/dl should Level be considered negative. Urine NEG NEGATIVE 07/09/2017 07/09/2017 Amphetamines 11:35pm 11:50pm Screen Urine NEG NEGATIVE 07/09/2017 07/09/2017 Methamphetam 11:35pm 11:50pm vanda Screen Urine NEG NEGATIVE 07/09/2017 07/09/2017 Barbiturates 11:35pm 11:50pm Screen Urine NEG NEGATIVE 07/09/2017 07/09/2017 Benzodiazepi 11:35pm 11:50pm hansel Screen Urine NEG NEGATIVE 07/09/2017 07/09/2017 Cocaine 11:35pm 11:50pm Screen Urine NEG NEGATIVE 07/09/2017 07/09/2017 Methadone 11:35pm 11:50pm Screen Urine NEG NEGATIVE 07/09/2017 07/09/2017 Opiates 11:35pm 11:50pm Screen Urine NEG NEGATIVE 07/09/2017 07/09/2017 Phencyclidin 11:35pm 11:50pm e Screen Urine NEG NEGATIVE 07/09/2017 07/09/2017 Propoxyphene 11:35pm 11:50pm Screen Ur NEG NEGATIVE 07/09/2017 07/09/2017 Tetrahydroca 11:35pm 11:50pm nnabinol (THC) Scrn Ur Tricyclic NEG NEGATIVE 07/09/2017 07/09/2017 Antidepressa 11:35pm 11:50pm nts Screen Urine POS NEGATIVE 07/09/2017 07/09/2017 Oxycodone 11:35pm 11:50pm Screen Procedures Procedure Status Date Provider(s) THER/PROPH/DIAG INJ IV PUSH Completed 04/14/15 YA THOMAS M.D. HYDRATE IV INFUSION ADD-ON Completed 04/14/15 YA THOMAS M.D. THER/PROPH/DIAG INJ SC/IM Completed 10/21/15 MARCUS MAN M.D. THER/PROPH/DIAG INJ IV PUSH Completed 10/28/15 MARCUS MAN M.D. TX/PRO/DX INJ NEW DRUG ADDON Completed 10/28/15 MARCUS MAN M.D. TX/PRO/DX INJ NEW DRUG ADDON Completed 10/28/15 MARCUS MAN M.D. TX/PRO/DX INJ SAME DRUG NET LEAD ARCHITECT Completed 10/28/15 MARCUS MAN M.D. HYDRATE IV INFUSION ADD-ON Completed 10/28/15 MARCUS MAN M.D. THER/PROPH/DIAG INJ SC/IM Completed 10/30/15 MARCUS MAN M.D. THER/PROPH/DIAG INJ SC/IM Completed 02/09/16 MARCUS MAN M.D. THER/PROPH/DIAG INJ IV PUSH Completed 02/20/17 MARCUS MAN M.D. TX/PRO/DX INJ NEW DRUG ADDON Completed 02/20/17 MARCUS MAN M.D. HYDRATE IV INFUSION ADD-ON Completed 02/20/17 MARCUS MAN M.D. Encounters Encounter Location Arrival/Admit Date Discharge/Depart Date Attending Provider Departed Trina Torres 07/09/17 11:09pm 07/10/17 10:33am [facility] 06/10/17 9:31am ZAYAT, Referred Mem. [facility] RYAN Han M.D. Departed Trina Torres 02/21/17 12:30pm 02/21/17 3:53pm YA THOMAS Emergency Room [facility]. [facility] Vinicius Carter Departed Trina Torres 02/20/17 7:47am 02/20/17 10:15am MAN, Emergency Room [facility]. Bhavani VELAZQUEZ M.D. Registered Trina Torres 01/09/17 8:58am ZAYAT, Referred Mem. [facility] RYAN Han M.D. Registered Trina Torres 12/24/16 4:24am ZAYAT, Referred Mem. [facility] RYAN Han M.D. Registered Trina Torres 09/12/16 6:46am MAKSOUD, AZIZ Referred Mem. [facility] Raul Registered Trina Torres 08/05/16 8:50am NIGHTENGALE, Referred Mem. [facility] SHER Beckham M.D. Registered Trina Torres 04/30/16 8:19am NIGHTENGALE, Referred Mem. [facility] SHER Beckham M.D. Departed Clinic Trina Torres 04/04/16 10:01am 04/04/16 2:42pm MAKSOUD, AZIZ [facility]. [facility] Raul Registered Trina Torres 03/27/16 12:36pm NIGHTENGALE, Referred Mem. Bhavani Beckham M.D. Departed Trina Torres 02/09/16 3:44pm 02/09/16 5:45pm MAN, Emergency Room [facility]. Bhavani VELAZQUEZ M.D. Discharged Trina Torres 12/26/15 1:28pm 02/09/16 11:59pm NIGHTENGALE, Recurring Mem. Bhavani Beckham M.D. Departed Trina Torres 10/30/15 3:25pm 10/30/15 9:52pm MAN, Emergency Room [facility]. [facility] MARCUS Carter Departed Trina Torres 10/28/15 6:57am 10/28/15 7:35pm MAN, Emergency Room [facility]. [facility] MARCUS Carter Registered Trina Torres 10/23/15 7:03am NIGHTENGALE, Referred Mem. Bhavani Beckham M.D. Departed Trina Torres 10/21/15 9:57pm 10/21/15 11:04pm DONOVAN, Emergency Room [facility]. Bhavani VELAZQUEZ M.D. Departed Trina Torres 10/02/15 2:22pm 10/02/15 4:50pm DONOVAN, Emergency Room [facility]. Bhavani VELAZQUEZ M.D. Registered Trina Torres 09/27/15 11:23am NIGHTENGALE, Referred Mem. Bhavani Beckham M.D. Registered Trina Torres 09/14/15 2:55pm NIGHTENGALE, Referred Mem. Bhavani Beckham M.D. Departed Trina Torres 06/11/15 4:32pm 06/11/15 10:14pm DONOVAN, Emergency Room [facility]. Bhavani VELAZQUEZ M.D. Departed Trina Torres 04/14/15 6:02am 04/14/15 7:30am YA THOMAS Emergency Room [facility]. Bhavani Colvin M.D. Recent Diagnosis
--- OUTSIDE RECORDS SUMMARY | 2017-07-10 18:55 | External Medical Summary | Continuity of Care Document ---
:1950 Author Organization [facility] [employer] Phone Unavailable Care Team Providers Name Role Phone SHER CHRISTINA M.D. Primary Care Physician Insurance Providers Guarantor Bravo Ortiz Address [address] [place] [address] Payer s Medicare Policy Number [id number] Subscriber's Name Bravo Ortiz Relationship 01 Self / Same As Patient Effective Date 10 Advance Directives No advance directive information available. Chief Complaint and Reason for Visit Chief Complaint Anxiety Reason for Visit Anxiety Opioid abuse Problems Medical Problem Onset Date Status Abdominal [...] Acute Hx of diabetes mellitus Unknown Acute Major depression Unknown Acute Narcotic addiction Unknown Acute Opiate addiction Unknown Acute Opioid abuse Unknown Acute Opioid abuse Unknown Acute Pre-hypertension Unknown Acute Rotator cuff tendinitis Unknown Acute Suicide ideation Unknown Acute Weakness Unknown Acute Medications Current Home Medications Medication Dose Units Route Directions Days Qty Instructions Start Date Aspirin 81 Mg Oral Daily (Aspir-81) 81 Mg Tab Insulin 20 Unit Subcutaneously Bedtime Glargine (Lantus) 100 Mg/Ml Inj Lisinopril 10 10 Mg Oral Daily Mg Tab Metoprolol 25 Mg Oral Twice A Day Succinate (Toprol Xl) 25 Mg Tab Oxycodone Hcl 10 Mg Oral Every 4 Hours 10 Mg Tab As Needed Sennosides-Docu 1 [...] Applicable Not Applicable Smoking Status Former smoker 02/20/2017 7:55am Not Applicable Not Applicable Smoking Status Start Date Stop Date Former smoker Hospital Discharge Instructions No hospital discharge instruction information available. Plan of Care Discharge Date 02/20/17 10:15am Disposition 01 HOME, SELF-CARE Condition at Discharge Stable Instructions/Education Provided Anxiety (ED) Prescriptions See Medication Section Referrals SHER CHRISTINA M.D. Address: [address] [place] [id number] Additional Instructions/Education Proceed directly to Dr. Christina's office for visit and she will consider prescribing anxiety medications for you. Functional Status No functional status information available. Allergies, Adverse Reactions, Alerts No known allergies. 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 Influenza 11/16/10 Administered 1 [id number] [employer]UR Vaccine, Inactivated Influenza 12/13/11 Administered 2 [id number] [employer] P[employer]ur Vaccine, Inactivated Vital Signs Acute Vital Signs Vital Response Date/Time Blood Pressure 136/72 mm Hg 02/20/2017 9:00am Blood Pressure Mean 61 mm Hg 08/17/2014 11:10am Blood Pressure Mean 93 mm Hg 02/20/2017 9:00am Temperature (Fahrenheit) 98.2 degrees F (96.0 - 99.9) 02/20/2017 7:47am Temperature (Calculated Celsius) 36.56724 degrees C 02/20/2017 7:47am Temperature Source Oral 08/17/2014 11:14am Temperature Source Oral 02/20/2017 7:47am Temp 97.0 degrees F (96.0 - 99.9) 08/17/2014 11:08am Temperature (Calculated Celsius) 36.80542 degrees C 08/17/2014 11:08am Pulse Pulse Rate (adult) 78 bpm (60 - 100) 04/04/2016 10:45am Pulse Rate (adult) 59 bpm (60 - 100) 08/17/2014 11:10am Pulse Rate: ED 88 bpm 02/20/2017 9:00am Respiratory Rate 20 breaths per minute (10 - 20) 02/20/2017 7:47am Respiratory Rate 16 bpm (10 - 20) 08/17/2014 11:10am Height (Feet) 5 ft 02/20/2017 7:47am Height (Inches) 11.0 in. 02/20/2017 7:47am Weight (Pounds) 247.1 lbs 02/20/2017 7:47am Height 5 ft 11 in 02/20/2017 7:47am Weight 247.10 lb 02/20/2017 7:47am Body Mass Index 34.5 kg/m^2 02/20/2017 7:47am Ambulatory Vital Signs Vital Response Date/Time Height [...] CLOUDY 10/28/2015 10/28/2015 Appearance 8:10am 8:25am Urine Glucose TRACE NEGATIVE 10/28/2015 10/28/2015 (UA) 8:10am 8:25am Urine NEGATIVE NEGATIVE 10/28/2015 10/28/2015 Bilirubin 8:10am 8:25am Urine Ketones TRACE NEGATIVE 10/28/2015 10/28/2015 8:10am 8:25am Urine Specific >=1.03 1.005-1.030 10/28/2015 10/28/2015 [place] 0 8:10am 8:25am Urine Occult NEGATIVE NEGATIVE 10/28/2015 10/28/2015 Blood 8:10am 8:25am Urine pH 5.5 4.5-8.0 10/28/2015 10/28/2015 8:10am 8:25am Urine Protein NEGATIVE NEGATIVE 10/28/2015 10/28/2015 8:10am 8:25am Urine 1.0 E.U./dL 0.2-1.0 10/28/2015 10/28/2015 Urobilinogen 8:10am 8:25am Urine Nitrate NEGATIVE NEGATIVE 10/28/2015 10/28/2015 8:10am 8:25am Urine NEGATIVE NEGATIVE 10/28/2015 10/28/2015 Leukocyte 8:10am 8:25am Esterase Urine RBC 0-1 /hpf NONE 10/28/2015 10/28/2015 8:10am 8:26am Urine WBC 1-3 /hpf NONE 10/28/2015 10/28/2015 8:10am 8:26am Urine RARE /lpf 10/28/2015 10/28/2015 Epithelial 8:10am 8:26am Cells Urine Bacteria 3+ /hpf H NONE 10/28/2015 10/28/2015 THIS SPECIMEN MEETS MEDICAL STAFF CRITERIA 8:10am 8:26am FOR A URINE CULTURE. A CULTURE HAS BEEN SET. Urine 2+ 10/28/2015 10/28/2015 Amorphous 8:10am 8:26am Sediment Bedside 253 mg/dL H 70-120 10/30/2015 10/30/2015 Glucose 7:37pm 7:39pm D-Dimer 306 ng/mL H 0-230 02/09/2016 02/09/2016 Results <230 ng/mL yeild a negative Quantitative 4:31pm 4:59pm predictability for DVT or PE (PE/DVT) Cholesterol 141 mg/dL 120-200 03/27/2016 03/27/2016 Level 12:40pm 2:32pm Triglycerides 110 mg/dL 45-150 03/27/2016 03/27/2016 Level 12:40pm 2:32pm LDL 64 mg/dL 25-100 03/27/2016 03/27/2016 Cholesterol 12:40pm 2:32pm HDL 55 mg/dL 40-80 03/27/2016 03/27/2016 Cholesterol 12:40pm 2:32pm VLDL 22.0 5-40 03/27/2016 03/27/2016 Cholesterol 12:40pm 2:32pm Cholesterol 2.563 03/27/2016 03/27/2016 Ratio 12:40pm 2:32pm (LDL/HDL) Hemoglobin A1c 7.6 % H 4.0-6.0 03/27/2016 03/27/2016 12:40pm 2:20pm Hepatitis C 884613 IU/mL Negative 08/05/2016 08/08/2016 RNA (DNA PCR) 9:27am 3:28pm Hepatitis C 5.7 08/05/2016 08/08/2016 This test is for monitoring of HCV positive patients only and RNA (PCR) 9:27am 3:28pm should not be used as a screening test for HCV infection. log10 Hepatitis C RNA performed at [facility], [address] [place] [address] Tobacco Scrap Sifter Vandana Conklin DO Prothrombin 11.9 SECONDS 9.0-12.0 12/24/2016 12/24/2016 Time 4:35am 6:43am Prothromb Time 1.09 L 2.0-3.0 12/24/2016 12/24/2016 International THERAPEUTIC 4:35am 6:43am Ratio Tumor Marker 7.7 IU/mL 0.0-8.8 12/24/2016 12/24/2016 Alpha-Fetoprotein performed at [facility], [address], [place] Alpha 4:35am 11:41pm [id number] Tobacco Scrap Sifter Vandana Conklin DO Fetoprotein White Blood 7.8 K/uL 5.0-10.0 02/20/2017 02/20/2017 Count 8:28am 8:45am Red Blood 5.63 M/uL H 4.60-5.40 02/20/2017 02/20/2017 Count 8:28am 8:45am Hemoglobin 17.9 g/dL 14.0-18.0 02/20/2017 02/20/2017 8:28am 8:45am Hematocrit 50.1 % 40.0-54.0 02/20/2017 02/20/2017 8:28am 8:45am Mean 89.0 fL 80.0-94.0 02/20/2017 02/20/2017 Corpuscular 8:28am 8:45am Volume Mean 31.8 pg 26.0-33.0 02/20/2017 02/20/2017 Corpuscular 8:28am 8:45am Hemoglobin Mean 35.7 g/dL 31.0-36.0 02/20/2017 02/20/2017 Corpuscular 8:28am 8:45am Hemoglobin Concent Red Cell 12.5 % 11.5-14.5 02/20/2017 02/20/2017 Distribution 8:28am 8:45am Width RDW Standard 41.3 fL 35.1-43.9 02/20/2017 02/20/2017 Deviation 8:28am 8:45am Platelet Count 138 K/uL 130-400 02/20/2017 02/20/2017 8:28am 8:45am Mean Platelet 8.5 fL 7.0-11.0 02/20/2017 02/20/2017 Volume 8:28am 8:45am Neutrophils 71.6 % 42.0-75.0 02/20/2017 02/20/2017 (%) (Auto) 8:28am 8:45am Lymphocytes 18.4 % 16.0-44.0 02/20/2017 02/20/2017 (%) (Auto) 8:28am 8:45am Monocytes (%) 8.1 % 2.0-9.0 02/20/2017 02/20/2017 (Auto) 8:28am 8:45am Eosinophils 0.8 % 0-7.0 02/20/2017 02/20/2017 (%) (Auto) 8:28am 8:45am Basophils (%) 0.6 % 0-1 02/20/2017 02/20/2017 (Auto) 8:28am 8:45am Immature 0.5 % 0-0.5 02/20/2017 02/20/2017 Granulocyte % 8:28am 8:45am (Auto) Nucleated Red 0.0 /100WBC 0-0 02/20/2017 02/20/2017 Blood Cells % 8:28am 8:45am Neutrophils # 5.6 K/uL 1.9-8.0 02/20/2017 02/20/2017 (Auto) 8:28am 8:45am Lymphocytes # 1.4 K/uL 0.9-5.2 02/20/2017 02/20/2017 (Auto) 8:28am 8:45am Monocytes # 0.6 K/uL 0.16-1.0 02/20/2017 02/20/2017 (Auto) 8:28am 8:45am Eosinophils # 0.1 K/uL 0-0.8 02/20/2017 02/20/2017 (Auto) 8:28am 8:45am Basophils # 0.1 K/uL 0-0.2 02/20/2017 02/20/2017 (Auto) 8:28am 8:45am Immature 0.04 K/uL 0-0.40 02/20/2017 02/20/2017 Granulocyte # 8:28am 8:45am (Auto) Nucleated Red 0.00 K/uL 0.0-0.012 02/20/2017 02/20/2017 Blood Cells # 8:28am 8:45am Random Glucose 252 mg/dL H 65-115 02/20/2017 02/20/2017 8:28am 9:08am Blood Urea 28 mg/dL H 8-25 02/20/2017 02/20/2017 Nitrogen 8:28am 9:08am Creatinine 0.86 mg/dL L 0.9-1.6 02/20/2017 02/20/2017 8:28am 9:08am Glomerular 89.25 mL/min 02/20/2017 02/20/2017 MULTIPLY RESULT BY 1.210 IF THE PATIENT IS -CITIZEN [place] Filtration 8:28am 9:08am Units are mL/min/1.73 m2 Rate Calc > 60 Normal kidney function 30-59 Moderately decreased kidney function 15-29 Severely decreased kidney function <15 End-stage kidney failure BUN/Creatinine 32.6 02/20/2017 02/20/2017 Ratio 8:28am 9:08am Sodium Level 136 mEq/L 133-145 02/20/2017 02/20/2017 8:28am 9:08am Potassium 3.7 mEq/L 3.5-5.1 02/20/2017 02/20/2017 Level 8:28am 9:08am Chloride Level 108 mEq/L 98-116 02/20/2017 02/20/2017 8:28am 9:08am Carbon Dioxide 17 mEq/L L 22-34 02/20/2017 02/20/2017 Level 8:28am 9:08am Anion Gap 14.7 H 6-13 02/20/2017 02/20/2017 8:28am 9:08am Calcium Level 8.6 mg/dL 8.2-10.6 02/20/2017 02/20/2017 8:28am 9:08am Total Protein 6.6 gm/dL 6.0-8.4 02/20/2017 02/20/2017 8:28am 9:08am Albumin 3.5 gm/dL 3.2-5.0 02/20/2017 02/20/2017 8:28am 9:08am Globulin 3.1 gm/dL H 2.0-3.0 02/20/2017 02/20/2017 8:28am 9:08am Albumin/Globul 1.1 L 1.4-2.4 02/20/2017 02/20/2017 in Ratio 8:28am 9:08am Total 2.3 mg/dL H 0.1-1.3 02/20/2017 02/20/2017 Bilirubin 8:28am 9:08am Alkaline 87 U/L 35-125 02/20/2017 02/20/2017 Phosphatase 8:28am 9:08am Aspartate 49 U/L H 5-40 02/20/2017 02/20/2017 Amino Transf 8:28am 9:08am (AST/SGOT) Alanine 78 U/L H 5-40 02/20/2017 02/20/2017 Aminotransfera 8:28am 9:08am se (ALT/SGPT) Troponin I 0.01 ng/mL 0.0-0.02 02/20/2017 02/20/2017 8:28am 9:04am Acetaminophen 0.8 ug/mL 02/20/2017 02/20/2017 Therapeutic Levels in serum/plasma 10-30 ug/ml Level 8:28am 9:08am Toxic Levels: 4 hrs post ingestion >150 ug/ml 8 hrs post ingestion >75 ug/ml 12 hrs post ingestion >40 ug/ml Salicylates < 4.0 mg/dl 02/20/2017 02/20/2017 NORMAL LEVELS=< 4 mg/dL Level 8:28am 9:08am THERAPEUTIC LEVEL=< 20 mg/dL TOXIC LEVEL=> 30 mg/dL LETHAL LEVEL=> 60 mg/dL Ethyl Alcohol < 5.0 mg/dl 0-10 02/20/2017 02/20/2017 A level below Level 8:28am 9:08am 10 mg/dl should be considered negative. Urine Negative NEGATIVE 02/20/2017 02/20/2017 Amphetamines 8:00am 9:21am Screen Urine Negative NEGATIVE 02/20/2017 02/20/2017 Methamphetamin 8:00am 9:21am es Screen Urine Negative NEGATIVE 02/20/2017 02/20/2017 Barbiturates 8:00am 9:21am Screen Urine Negative NEGATIVE 02/20/2017 02/20/2017 Benzodiazepine 8:00am 9:21am s Screen Urine Cocaine Negative NEGATIVE 02/20/2017 02/20/2017 Screen 8:00am 9:21am Urine Negative NEGATIVE 02/20/2017 02/20/2017 Methadone 8:00am 9:21am Screen Urine Opiates Negative NEGATIVE 02/20/2017 02/20/2017 Screen 8:00am 9:21am Urine Negative NEGATIVE 02/20/2017 02/20/2017 Phencyclidine 8:00am 9:21am Screen Urine Negative NEGATIVE 02/20/2017 02/20/2017 Propoxyphene 8:00am 9:21am Screen Ur Negative NEGATIVE 02/20/2017 02/20/2017 Tetrahydrocann 8:00am 9:21am abinol (THC) Scrn Ur Tricyclic Negative NEGATIVE 02/20/2017 02/20/2017 Antidepressant 8:00am 9:21am s Screen Urine POSITIVE NEGATIVE 02/20/2017 02/20/2017 Oxycodone 8:00am 9:21am Screen Procedures Procedure Status Date Provider(s) DIAGNOSTIC COLONOSCOPY Completed 08/17/14 TAPAN THOMAS M.D. THER/PROPH/DIAG INJ IV PUSH Completed 04/14/15 YA THOMAS M.D. HYDRATE IV INFUSION ADD-ON Completed 04/14/15 YA THOMAS M.D. THER/PROPH/DIAG INJ SC/IM Completed 10/21/15 MARCUS MAN M.D. THER/PROPH/DIAG INJ IV PUSH Completed 10/28/15 MARCUS MAN M.D. TX/PRO/DX INJ NEW DRUG ADDON Completed 10/28/15 MARCUS MAN M.D. TX/PRO/DX INJ NEW DRUG ADDON Completed 10/28/15 MARCUS MAN M.D. TX/PRO/DX INJ SAME DRUG AIR BAG BUFFER Completed 10/28/15 MARCUS MAN M.D. HYDRATE IV INFUSION ADD-ON Completed 10/28/15 MARCUS MAN M.D. THER/PROPH/DIAG INJ SC/IM Completed 10/30/15 MARCUS MAN M.D. THER/PROPH/DIAG INJ SC/IM Completed 02/09/16 MARCUS MAN M.D. Encounters Encounter Location Arrival/Admit Date Discharge/Depart Date Attending Provider Departed Trina Torres 02/20/17 7:47am 02/20/17 10:15am MAN, Emergency Room Mem. [facility] MARCUS Carter Registered Trina Torres 01/09/17 8:58am ZAYAT, Referred Mem. [facility] RYAN Han M.D. Registered [facility] 12/24/16 4:24am ZAYAT, Referred Mem. [facility] RYAN Han M.D. Registered [facility] Torres 09/12/16 6:46am MAKSOUD, AZIZ Referred Mem. [facility] Raul Registered Trina Torres 08/05/16 8:50am NIGHTENGALE, Referred Mem. [facility] SHER Beckham M.D. Registered [facility] 04/30/16 8:19am NIGHTENGALE, Referred Mem. [facility] SHER Beckham M.D. Departed Clinic Tr[facility] Torres 04/04/16 10:01am 04/04/16 2:42pm MAKSOUD, AZIZ [facility]. Bhavani Carter Registered Trina Torres 03/27/16 12:36pm NIGHTENG[place], Referred Mem. Bhavani Beckham M.D. Departed Trina Torres 02/09/16 3:44pm 02/09/16 5:45pm MAN, Emergency Room [facility]. Bhavani VELAZQUEZ M.D. Discharged Tr[facility] Torres 12/26/15 1:28pm 02/09/16 11:59pm NIGHTENGALE, Recurring Mem. Bhavani Beckham M.D. Departed [facility] Torres 10/30/15 3:25pm 10/30/15 9:52pm MAN, Emergency Room [facility]. Bhavani VELAZQUEZ M.D. Departed [facility] 10/28/15 6:57am 10/28/15 7:35pm MAN, Emergency Room [facility]. Bhavani VELAZQUEZ M.D. Registered Tr[facility] Torres 10/23/15 7:03am [place], Referred Mem. Bhavani Beckham M.D. Departed [facility] Torres 10/21/15 9:57pm 10/21/15 11:04pm MAN, Emergency Room [facility]. Bhavani VELAZQUEZ M.D. Departed [facility] Torres 10/02/15 2:22pm 10/02/15 4:50pm MAN, Emergency Room [facility]. Bhavani VELAZQUEZ M.D. Registered [facility] SHER Beckham M.D. Registered Trina Torres 09/14/15 2:55pm [place], Referred [facility]. [facility] SHER Beckham M.D. Departed Trina Torres 06/11/15 4:32pm 06/11/15 10:14pm DONOVAN Emergency Room [facility]. [facility] MARCUS Carter Departed Trina Torres 04/14/15 6:02am 04/14/15 7:30am YA THOMAS Emergency Room [facility]. Bhavani Colvin M.D. Departed Trina Torres 08/17/14 9:03am 08/17/14 11:45am TAPAN THOMAS Surgical Day [facility] Bhavani Small M.D. Care Registered Tapan Thomas 08/02/14 2:39pm TAPAN THOMAS M.D. Recent Diagnosis
--- OUTSIDE RECORDS SUMMARY | 2017-07-10 18:56 | External Medical Summary | Continuity of Care Document ---
:1950 Author Organization [facility] Care Team Providers Name Role Phone SHER CHRISTINA M.D. 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 No 08/16/14 11:57am Problems Medical Problems Problem Onset Date Status Coronary arteriosclerosis 08/20/2010 Active Degeneration of intervertebral disc 08/20/2010 Active Diabetes mellitus type 2 08/20/2010 Active Osteoarthritis 08/20/2010 Active Anxiety disorder 09/03/2010 Active Disease related peripheral neuropathy 09/24/2010 Active Edema 09/17/2010 Active Depressive disorder 11/07/2010 Active LUMBAGO 11/16/2010 Active Inguinal pain 11/19/2010 Active Reactive depression (situational) 01/29/2011 Active Hyperlipidemia 02/26/2011 Active Injury of head 03/06/2011 Active Reactive airways dysfunction syndrome 05/13/2011 Active Chronic low back pain 06/03/2011 Active Chest pain 06/24/2011 Active Hypertension Unknown Active Chronic pain syndrome Unknown Active Colon cancer screening Unknown Active Medications Medication Dose Route Sig Days/Qty Instructions Order Discontinued Status Date Date Rosuvastatin DAILY 01/29/11 Discontinu Calcium 08 ed Hydrocodone-Ac 7.5 Tab PO Q6H 30 Qty for pain 09/03/10 Discontinu etaminophen 08 ed Hydrocodone-Ac 7.5 Tab PO Every 8 10 Qty 09/03/10 Discontinu etaminophen hours 08 ed as needed Aspirin 81 Mg PO DAILY 01/29/11 Discontinu 08 ed Metoprolol 50 Mg PO DAILY 01/29/11 Discontinu Succinate 09 ed Oxycodone/Acet 1 - 2 PO Every 6 10 Qty 09/03/10 Discontinu aminophen Tab hours 09 ed as needed Alprazolam PO THREE 09/03/10 Discontinu TIMES A 09 ed DAY Insulin 20 SC BEDTIME 12/03/10 Discontinu Glargine Units 09 ed Metformin Hcl PO TWICE A 01/29/11 Discontinu DAY 09 ed Oxycodone/Acet 1 Ea PO TWICE A 14 Qty 09/03/10 Discontinu aminophen DAY 10 ed Alprazolam 1 Mg PO Four 120 Qty 10/03/10 Discontinu times a 11 ed day as needed Oxycodone W/ 1 Tab PO Every 6 56 Qty for pain 09/10/10 Discontinu Acetaminophen hours 11 ed as needed Oxycodone W/ 1 Tab PO Every 6 56 Qty 09/17/10 Discontinu Acetaminophen hours 11 ed as needed Oxycodone W/ 1 Tab PO Every 6 56 Qty for pain 09/24/10 Discontinu Acetaminophen hours 11 ed as needed Oxycodone W/ 2 Tab PO Every 6 112 Qty 10/08/10 Discontinu Acetaminophen hours 11 ed as needed Alprazolam 1 Mg PO Four 120 Qty 10/30/10 Discontinu times a 11 ed day as needed Oxycodone W/ 2 Tab PO Every 6 112 Qty for pain 10/22/10 Discontinu Acetaminophen hours 11 ed as needed Lisinopril 1 Tab PO DAILY 30 Qty 01/07/11 Discontinu 11 ed Metoprolol 1 Tab PO TWICE A 60 Qty 01/07/11 Discontinu Tartrate DAY 11 ed Oxycodone W/ 2 Tab PO Every 6 112 Qty 11/05/10 Discontinu Acetaminophen hours 11 ed as needed Trazodone Hcl 100 Mg PO BEDTIME 30 Qty 02/22/11 Discontinu 11 ed NEEDED Oxycodone W/ 3 Tab PO Every 6 168 Qty for pain 11/29/10 Discontinu Acetaminophen hours 11 ed as needed Influenza 0.5 Ml IM ONETIME 1 Qty 11/16/10 Discontinu Virus Vaccine 11 ed Ciprofloxacin 500 Mg PO TWICE A 20 Qty 11/29/10 Discontinu Hcl DAY 11 ed Alprazolam 1 Mg PO Every 6 120 Qty 12/25/10 Discontinu hours 11 ed as needed Oxycodone W/ 3 Tab PO Every 6 168 Qty 12/13/10 Discontinu Acetaminophen hours 11 ed as needed Insulin 20 SC BEDTIME 10 Qty 12/04/10 Discontinu Glargine Units 11 ed Oxycodone W/ 3 Tab PO Every 6 168 Qty for pain 12/25/10 Discontinu Acetaminophen hours 11 ed as needed Tizanidine Hcl 4 Mg PO Every 6 30 Qty 01/10/11 Discontinu hours 11 ed as needed Oxycodone W/ 3 Tab PO Every 6 168 Qty 01/07/11 Discontinu Acetaminophen hours 11 ed as needed Alprazolam 1 Mg PO Every 6 120 Qty 01/22/11 Discontinu hours 11 ed as needed Oxycodone W/ 3 Tab PO Every 6 168 Qty for pain 01/14/11 Discontinu Acetaminophen hours 11 ed as needed Metoprolol 1 Tab PO TWICE A 60 Qty 07/12/11 Discontinu Tartrate DAY 11 ed Lisinopril 1 Tab PO DAILY 30 Qty 07/12/11 Discontinu 11 ed Tizanidine Hcl 4 Mg PO Every 6 30 Qty 01/25/11 Discontinu hours 11 ed as needed Oxycodone/Acet 2 Tab PO Every 6 112 Qty For pain 01/25/11 Discontinu aminophen hours 11 ed as needed Alprazolam 1 Mg PO Every 6 120 Qty 02/21/11 Discontinu hours 11 ed as needed Oxycodone/Acet 2 Tab PO Every 6 112 Qty 02/07/11 Discontinu aminophen hours 11 ed as needed Tizanidine Hcl 4 Mg PO Every 6 30 Qty 02/08/11 Discontinu hours 11 ed as needed Metformin Hcl 1 Tab PO TWICE A 60 Qty 03/28/11 Discontinu DAY 11 ed Aspirin 1 Tab PO DAILY 30 Qty 08/02/14 Discontinu 11 ed Venlafaxine 150 Mg PO DAILY 30 Qty 05/28/11 Discontinu Hcl 11 ed Oxycodone/Acet 2 Tab PO Every 6 112 Qty Percocet 02/21/11 Discontinu aminophen hours 10325 11 ed as needed Tizanidine Hcl 4 Mg PO Every 6 30 Qty 02/22/11 Discontinu hours 11 ed as needed Oxycodone/Acet 2 Tab PO Every 6 112 Qty For pain 03/06/11 Discontinu aminophen hours 12 ed as needed Alprazolam 1 Mg PO Every 6 120 Qty 03/21/11 Discontinu hours 12 ed as needed Trazodone Hcl 100 Mg PO BEDTIME 30 Qty /03/24 Discontinu 12 ed NEEDED Tizanidine Hcl 4 Mg PO Every 6 30 Qty 04/05/11 Discontinu hours 12 ed as needed Insulin 20 SC BEDTIME 15 Qty 03/05/12 Discontinu Glargine Units 12 ed Simvastatin 20 Mg PO BEDTIME 30 Qty 09/26/11 Discontinu 12 ed Oxycodone/Acet 2 Tab PO Every 6 112 Qty 03/20/11 Discontinu aminophen hours 12 ed as needed Oxycodone/Acet 2 Tab PO Every 6 112 Qty Percocet 04/03/11 Discontinu aminophen hours 10325 12 ed as needed Alprazolam 1 Mg PO Every 6 120 Qty 04/18/11 Discontinu hours 12 ed as needed Glyburide 1 Tab PO TWICE A 60 Qty 03/28/11 Discontinu DAY 12 ed Glyburide 1 Tab PO TWICE A 60 Qty 10/29/13 Discontinu DAY 12 ed Metformin Hcl 1 Tab PO TWICE A 60 Qty 10/29/13 Discontinu DAY 12 ed Oxycodone/Acet 2 Tab PO Every 6 112 Qty For pain /07/22 Discontinu aminophen hours 12 ed as needed Tizanidine Hcl 4 Mg PO Every 6 30 Qty 04/05/ 04/18/11 Discontinu hours 12 ed as needed Oxycodone/Acet 2 Tab PO Every 6 112 Qty 04/15/ 04/29/11 Discontinu aminophen hours 12 ed as needed Azithromycin 250 Mg PO 6 Qty Take 2 04/29/11 Discontinu DIRECTE tablets now, 12 ed D then one tablet a day for the next 4 Alprazolam 1 Mg PO Every 6 120 Qty 04/17/ 05/06/11 Discontinu hours 12 ed as needed Oxycodone/Acet 2 Tab PO Every 6 112 Qty For pain 04/28/ 05/13/11 Discontinu aminophen hours 12 ed as needed Alprazolam 1 Mg PO Every 6 120 Qty 05/05/ 06/03/11 Discontinu hours 12 ed as needed Azithromycin 250 Mg PO 6 Qty 05/08/ 05/09/11 Discontinu DIRECTE 12 ed D Oxycodone/Acet 2 Tab PO Every 6 112 Qty Percocet 05/12/ 05/21/11 Discontinu aminophen hours 10325 12 ed as needed Trazodone Hcl 100 Mg PO BEDTIME 30 Qty 05/12/ 08/15/11 Discontinu 12 ed NEEDED Prednisone 20 Mg PO 18 Qty stop. 05/12/ /23/01 Discontinu DIRECTE 12 ed D Methylpredniso 80 Mg IM ONETIME 1 Qty 05/13/11 Discontinu lone Acetate 12 ed Oxycodone/Acet 2 Tab PO Every 6 112 Qty 06/10/11 Discontinu aminophen hours 12 ed as needed Morphine 60 Mg PO TWICE A 28 Qty 06/03/11 Discontinu Sulfate DAY 12 ed Venlafaxine 150 Mg PO DAILY 30 Qty 05/27/ /24/01 Discontinu Hcl 12 ed Morphine 60 Mg PO TWICE A 28 Qty 06/02/ 06/10/11 Discontinu Sulfate DAY 12 ed Alprazolam 1 Mg PO Every 6 120 Qty 06/27/11 Discontinu hours 12 ed as needed Oxycodone/Acet 1 Tab PO Every 6 112 Qty Percocet 06/09/ 06/10/11 Discontinu aminophen hours 10325 12 ed as needed Oxycodone/Acet 1 Tab PO Every 4 112 Qty For pain 06/24/11 Discontinu aminophen hours 12 ed as needed Morphine 60 Mg PO TWICE A 60 Qty 06/09/ 06/14/11 Discontinu Sulfate DAY 12 ed Morphine 60 Mg PO TWICE A 60 Qty 07/09/11 Discontinu Sulfate DAY 12 ed Oxycodone/Acet 1 Tab PO Every 4 112 Qty 07/09/11 Discontinu aminophen hours 12 ed as needed Venlafaxine 150 Mg PO DAILY 30 Qty 06/24/ 09/26/11 Discontinu Hcl 12 ed Alprazolam 1 Mg PO Every 6 120 Qty 07/22/11 Discontinu hours 12 ed as needed Oxycodone/Acet 1 Tab PO Every 4 112 Qty Percocet 07/22/11 Discontinu aminophen hours 12 ed as needed Morphine 60 Mg PO TWICE A 60 Qty 07/22/11 Discontinu Sulfate DAY 12 ed Lisinopril 1 Tab PO DAILY 30 Qty 12/17/11 Discontinu 12 ed Metoprolol 1 Tab PO TWICE A 60 Qty 12/17/11 Discontinu Tartrate DAY 12 ed Alprazolam 1 Mg PO Every 6 120 Qty 08/21/11 Discontinu hours 12 ed as needed Furosemide 20 Mg PO qd prn 30 Qty 03/18/12 Discontinu pedal 12 ed edema Oxycodone/Acet 1 Tab PO Every 4 112 Qty For pain 07/22/11 Discontinu aminophen hours 12 ed as needed Oxycodone/Acet 2 Tab PO Every 6 112 Qty 08/02/11 Discontinu aminophen hours 12 ed as needed Morphine 60 Mg PO TWICE A 14 Qty 07/29/ 08/05/11 Discontinu Sulfate DAY 12 ed Oxycodone/Acet 2 Tab PO Every 6 112 Qty Percocet 08/01/ 08/19/11 Discontinu aminophen hours 10325 12 ed as needed Morphine 60 Mg PO TWICE A 28 Qty 08/04/ 08/19/11 Discontinu Sulfate DAY 12 ed Trazodone Hcl 100 Mg PO BEDTIME 30 Qty 11/20/11 Discontinu 12 ed NEEDED Morphine 60 Mg PO TWICE A 60 Qty 09/16/11 Discontinu Sulfate DAY 12 ed Oxycodone/Acet 2 Tab PO Every 6 84 Qty For pain 09/02/11 Discontinu aminophen hours 12 ed as needed Alprazolam 1 Mg PO Every 6 120 Qty 09/18/11 Discontinu hours 12 ed as needed Oxycodone/Acet 2 Tab PO Every 6 84 Qty 09/02/11 Discontinu aminophen hours 12 ed as needed Oxycodone/Acet 2 Tab PO Every 6 84 Qty Percocet 09/16/11 Discontinu aminophen hours 10/325 12 ed as needed Oxycodone/Acet 2 Tab PO Every 6 84 Qty For pain 09/30/11 Discontinu aminophen hours 12 ed as needed Morphine 60 Mg PO TWICE A 60 Qty 10/17/11 Discontinu Sulfate DAY 12 ed Alprazolam 1 Mg PO Every 6 120 Qty 10/18/11 Discontinu hours 12 ed as needed Venlafaxine 150 Mg PO DAILY 30 Qty 12/26/11 Discontinu Hcl 12 ed Simvastatin 20 Mg PO BEDTIME 30 Qty 03/30/12 Discontinu 12 ed Oxycodone/Acet 1 - 2 PO Every 6 84 Qty 10/09/11 Discontinu aminophen Tab hours 12 ed as needed Oxycodone/Acet 1 - 2 PO Every 6 84 Qty Percocet 10/24/11 Discontinu aminophen Tab hours 10/325 12 ed as needed Morphine 60 Mg PO TWICE A 60 Qty 11/15/11 Discontinu Sulfate DAY 12 ed Alprazolam 1 Mg PO Every 6 120 Qty 11/15/11 Discontinu hours 12 ed as needed Oxycodone/Acet 1 - 2 PO Every 6 84 Qty For pain 10/23/ 10/25/11 Discontinu aminophen Tab hours 12 ed as needed Oxycodone/Acet 1 - 2 PO Every 6 84 Qty 11/06/11 Discontinu aminophen Tab hours 12 ed as needed Oxycodone/Acet 1 - 2 PO Every 6 84 Qty Percocet 11/21/11 Discontinu aminophen Tab hours 10325 12 ed as needed Methylphenidat 10 Mg PO Daily 30 Qty 12/04/11 Discontinu e Hcl as 12 ed needed Morphine 60 Mg PO TWICE A 60 Qty 12/13/11 Discontinu Sulfate DAY 12 ed Alprazolam 1 Mg PO Every 6 120 Qty 12/13/11 Discontinu hours 12 ed as needed Trazodone Hcl 100 Mg PO BEDTIME 30 Qty 03/03/12 Discontinu 12 ed NEEDED Oxycodone/Acet 1 - 2 PO Every 6 84 Qty For pain 12/04/11 Discontinu aminophen Tab hours 12 ed as needed Oxycodone/Acet 1 - 2 PO Every 6 84 Qty 12/17/11 Discontinu aminophen Tab hours 12 ed as needed Methylphenidat 10 Mg PO Daily 30 Qty 12/31/11 Discontinu e Hcl as 12 ed needed Alprazolam 1 Mg PO Every 6 120 Qty 01/06/12 Discontinu hours 12 ed as needed Morphine 60 Mg PO TWICE A 60 Qty 03/03/12 Discontinu Sulfate DAY 12 ed Influenza 1 Ml ID ONETIME 1 Qty 12/13/11 Discontinu Virus Vaccine 12 ed Metoprolol 1 Tab PO TWICE A 60 Qty 03/09/12 Discontinu Tartrate DAY 12 ed Lisinopril 1 Tab PO DAILY 30 Qty 03/09/12 Discontinu 12 ed Oxycodone/Acet 1 - 2 PO Every 6 84 Qty Percocet 12/30/11 Discontinu aminophen Tab hours 10325 12 ed as needed Venlafaxine 150 Mg PO DAILY 30 Qty 03/30/12 Discontinu Hcl 12 ed Oxycodone/Acet 1 - 2 PO Every 6 84 Qty For pain 01/06/12 Discontinu aminophen Tab hours 12 ed as needed Methylphenidat 10 Mg PO Daily 30 Qty 01/30/12 Discontinu e Hcl as 12 ed needed Alprazolam 1 Mg PO Every 6 120 Qty 02/05/12 Discontinu hours 12 ed as needed Oxycodone/Acet 1 - 2 PO Every 6 84 Qty 01/21/12 Discontinu aminophen Tab hours 12 ed as needed Morphine 60 Mg PO TWICE A 10 Qty 01/09/12 Discontinu Sulfate DAY 12 ed Morphine 60 Mg PO TWICE A 10 Qty 01/08/ 01/10/12 Discontinu Sulfate DAY 12 ed Morphine 60 Mg PO TWICE A 60 Qty 02/10/12 Discontinu Sulfate DAY 12 ed Oxycodone/Acet 1 - 2 PO Every 6 84 Qty Percocet 01/30/12 Discontinu aminophen Tab hours 10325 12 ed as needed Oxycodone/Acet 1 - 2 PO Every 6 84 Qty For pain 02/13/12 Discontinu aminophen Tab hours 12 ed as needed Methylphenidat 10 Mg PO Daily 30 Qty 03/03/12 Discontinu e Hcl as 12 ed needed Alprazolam 1 Mg PO Every 6 120 Qty 03/03/12 Discontinu hours 12 ed as needed Morphine 60 Mg PO TWICE A 60 Qty 03/03/12 Discontinu Sulfate DAY 12 ed Oxycodone/Acet 1 - 2 PO Every 6 84 Qty 02/24/12 Discontinu aminophen Tab hours 13 ed as needed Oxycodone/Acet 1 - 2 PO Every 6 84 Qty Percocet 03/03/12 Discontinu aminophen Tab hours 10/325 13 ed as needed Trazodone Hcl 100 Mg PO BEDTIME 30 Qty 05/20/12 Discontinu 13 ed NEEDED Oxycodone/Acet 1 - 2 PO Every 6 84 Qty For pain 03/16/12 Discontinu aminophen Tab hours 13 ed as needed Alprazolam 1 Mg PO Every 6 120 Qty 03/26/12 Discontinu hours 13 ed as needed Methylphenidat 10 Mg PO Daily 30 Qty 03/26/12 Discontinu e Hcl as 13 ed needed Morphine 60 Mg PO TWICE A 60 Qty 03/26/12 Discontinu Sulfate DAY 13 ed Insulin 20 SC BEDTIME 15 Qty 03/05/ 03/10/13 Discontinu Glargine Units 13 ed Lisinopril 1 Tab PO DAILY 30 Qty 06/15/12 Discontinu 13 ed Metoprolol 1 Tab PO TWICE A 60 Qty 06/15/12 Discontinu Tartrate DAY 13 ed Oxycodone/Acet 1 - 2 PO Every 6 84 Qty 03/26/12 Discontinu aminophen Tab hours 13 ed as needed Oxycodone/Acet 1 - 2 PO Every 6 84 Qty Percocet 04/09/12 Discontinu aminophen Tab hours 10325 13 ed as needed Morphine 60 Mg PO TWICE A 60 Qty 04/01/12 Discontinu Sulfate DAY 13 ed Methylphenidat 10 Mg PO Daily 30 Qty NOT TO FILL 04/01/12 Discontinu e Hcl as PRIOR TO 13 ed needed 04/02/12 Alprazolam 1 Mg PO Every 6 120 Qty 04/30/12 Discontinu hours 13 ed as needed Venlafaxine 150 Mg PO DAILY 30 Qty 05/06/12 Discontinu Hcl 13 ed Simvastatin 20 Mg PO BEDTIME 30 Qty 05/06/12 Discontinu 13 ed Methylphenidat 10 Mg PO Daily 30 Qty 04/30/12 Discontinu e Hcl as 13 ed needed Morphine 60 Mg PO TWICE A 60 Qty 04/30/12 Discontinu Sulfate DAY 13 ed Oxycodone/Acet 1 - 2 PO Every 6 84 Qty Percocet 04/23/12 Discontinu aminophen Tab hours 10/325 13 ed as needed Oxycodone/Acet 1 - 2 PO Every 6 84 Qty For pain 05/07/12 Discontinu aminophen Tab hours 13 ed as needed Morphine 60 Mg PO TWICE A 60 Qty 05/28/12 Discontinu Sulfate DAY 13 ed Alprazolam 1 Mg PO Every 6 120 Qty 05/20/12 Discontinu hours 13 ed as needed Simvastatin 20 Mg PO BEDTIME 30 Qty 09/28/12 Discontinu 13 ed Venlafaxine 150 Mg PO DAILY 30 Qty 07/28/12 Discontinu Hcl 13 ed Oxycodone/Acet 1 - 2 PO Every 6 84 Qty 05/20/12 Discontinu aminophen Tab hours 13 ed as needed Oxycodone/Acet 1 - 2 PO Every 6 84 Qty Percocet 06/02/12 Discontinu aminophen Tab hours 10/325 13 ed as needed Alprazolam 1 - 2 PO Every 6 120 Qty 05/20/12 Discontinu Mg hours 13 ed as needed Alprazolam 1 Tab PO Every 8 90 Qty 06/18/12 Discontinu hours 13 ed as needed Trazodone Hcl 100 Mg PO BEDTIME 30 Qty 08/12/12 Discontinu 13 ed NEEDED Morphine 60 Mg PO TWICE A 60 Qty 06/23/12 Discontinu Sulfate DAY 13 ed Oxycodone/Acet 1 - 2 PO Every 6 84 Qty For pain 06/16/12 Discontinu aminophen Tab hours 13 ed as needed Metoprolol 1 Tab PO TWICE A 60 Qty 11/25/12 Discontinu Tartrate DAY 13 ed Lisinopril 1 Tab PO DAILY 30 Qty 11/25/12 Discontinu 13 ed Oxycodone/Acet 1 - 2 PO Every 6 84 Qty 06/30/12 Discontinu aminophen Tab hours 13 ed as needed Alprazolam 1 Tab PO Every 8 90 Qty 07/16/12 Discontinu hours 13 ed as needed Morphine 60 Mg PO TWICE A 60 Qty 07/23/12 Discontinu Sulfate DAY 13 ed Oxycodone/Acet 1 - 2 PO Every 6 84 Qty Percocet 07/14/12 Discontinu aminophen Tab hours 10/325 13 ed as needed Oxycodone/Acet 1 - 2 PO Every 6 84 Qty For pain 07/28/12 Discontinu aminophen Tab hours 13 ed as needed Alprazolam 1 Tab PO Every 8 90 Qty 08/12/12 Discontinu hours 13 ed as needed Morphine 60 Mg PO TWICE A 60 Qty 07/23/ 08/20/12 Discontinu Sulfate DAY 13 ed Oxycodone/Acet 1 - 2 PO Every 6 84 Qty 08/10/12 Discontinu aminophen Tab hours 13 ed as needed Venlafaxine 150 Mg PO DAILY 30 Qty 08/28/12 Discontinu Hcl 13 ed Oxycodone/Acet 1 - 2 PO Every 6 84 Qty Percocet 08/20/12 Discontinu aminophen Tab hours 10/325 13 ed as needed Trazodone Hcl 100 Mg PO BEDTIME 30 Qty 08/12/12 Discontinu 13 ed NEEDED Alprazolam 1 Tab PO Every 8 90 Qty 09/09/12 Discontinu hours 13 ed as needed Trazodone Hcl 100 Mg PO BEDTIME 30 Qty 12/15/12 Discontinu 13 ed NEEDED Oxycodone/Acet 1 - 2 PO Every 6 84 Qty For pain 09/07/12 Discontinu aminophen Tab hours 13 ed as needed Morphine 60 Mg PO TWICE A 60 Qty 09/18/12 Discontinu Sulfate DAY 13 ed Venlafaxine 150 Mg PO DAILY 30 Qty 09/28/12 Discontinu Hcl 13 ed Oxycodone/Acet 1 - 2 PO Every 6 84 Qty 09/18/12 Discontinu aminophen Tab hours 13 ed as needed Alprazolam 1 Tab PO Every 8 90 Qty 10/09/12 Discontinu hours 13 ed as needed Oxycodone/Acet 1 - 2 PO Every 6 84 Qty Percocet 10/01/12 Discontinu aminophen Tab hours 10/325 13 ed as needed Simvastatin 20 Mg PO BEDTIME 30 Qty 01/20/13 Discontinu 13 ed Venlafaxine 150 Mg PO DAILY 30 Qty 02/11/13 Discontinu Hcl 13 ed Alprazolam 1 Tab PO Every 8 90 Qty 10/09/ 11/04/12 Discontinu hours 13 ed as needed Morphine 60 Mg PO TWICE A 60 Qty 11/11/12 Discontinu Sulfate DAY 13 ed Oxycodone/Acet 1 - 2 PO Every 6 90 Qty 11/11/12 Discontinu aminophen Tab hours 13 ed as needed Alprazolam 1 Tab PO Every 8 90 Qty 12/04/12 Discontinu hours 13 ed as needed Oxycodone/Acet 1 - 2 PO Every 6 90 Qty 11/25/12 Discontinu aminophen Tab hours 13 ed as needed Morphine 60 Mg PO TWICE A 60 Qty MAY FILL ON 12/15/12 Discontinu Sulfate DAY 11-15-12 13 ed Oxycodone/Acet 1 - 2 PO Every 6 90 Qty 12/09/12 Discontinu aminophen Tab hours 13 ed as needed Metoprolol 1 Tab PO TWICE A 60 Qty 04/28/13 Discontinu Tartrate DAY 13 ed Lisinopril 1 Tab PO DAILY 30 Qty 05/07/13 Discontinu 13 ed Alprazolam 1 Tab PO Every 8 90 Qty 01/01/13 Discontinu hours 13 ed as needed Oxycodone/Acet 1 - 2 PO Every 6 90 Qty 12/22/12 Discontinu aminophen Tab hours 13 ed as needed Morphine 60 Mg PO TWICE A 60 Qty 01/13/13 Discontinu Sulfate DAY 13 ed Trazodone Hcl 100 Mg PO BEDTIME 30 Qty 05/07/13 Discontinu 13 ed NEEDED Oxycodone/Acet 1 - 2 PO Every 6 90 Qty 01/05/13 Discontinu aminophen Tab hours 13 ed as needed Alprazolam 1 Tab PO Every 8 90 Qty 01/29/13 Discontinu hours 13 ed as needed Oxycodone/Acet 1 - 2 PO Every 6 90 Qty 01/19/13 Discontinu aminophen Tab hours 13 ed as needed Morphine 60 Mg PO TWICE A 60 Qty 02/11/13 Discontinu Sulfate DAY 13 ed Oxycodone/Acet 1 - 2 PO Every 6 90 Qty 01/29/13 Discontinu aminophen Tab hours 13 ed as needed Simvastatin 20 Mg PO BEDTIME 30 Qty 07/27/13 Discontinu 13 ed Alprazolam 1 Tab PO Every 8 90 Qty 02/26/13 Discontinu hours 13 ed as needed Oxycodone/Acet 1-2 Tab PO Every 6 90 Qty 02/11/13 Discontinu aminophen hours 13 ed as needed Glucose Blood 1 FS THREE 300 Qty 05/13/13 Discontinu Strips TIMES A 14 ed DAY Morphine 60 Mg PO TWICE A 60 Qty DO NOT FILL 03/15/13 Discontinu Sulfate DAY UNTIL 02/13/13 14 ed Oxycodone/Acet 1-2 Tab PO Every 6 90 Qty 02/24/13 Discontinu aminophen hours 14 ed as needed Venlafaxine 150 Mg PO DAILY 30 Qty 06/14/13 Discontinu Hcl 14 ed Alprazolam 1 Tab PO Every 8 90 Qty 03/30/13 Discontinu hours 14 ed as needed Oxycodone Hcl 1-2 Tab PO Every 6 90 Qty 03/24/13 Discontinu hours 14 ed as needed Morphine 60 Mg PO TWICE A 60 Qty 04/13/13 Discontinu Sulfate DAY 14 ed Oxycodone Hcl 1-2 Tab PO Every 6 90 Qty 04/06/13 Discontinu hours 14 ed as needed Alprazolam 1 Tab PO Every 8 90 Qty 04/29/13 Discontinu hours 14 ed as needed Oxycodone Hcl 1-2 Tab PO Every 6 90 Qty 04/19/13 Discontinu hours 14 ed as needed Morphine 60 Mg PO TWICE A 60 Qty 05/13/13 Discontinu Sulfate DAY 14 ed Oxycodone Hcl 1-2 Tab PO Every 6 90 Qty 05/04/13 Discontinu hours 14 ed as needed Metoprolol 1 Tab PO TWICE A 60 Qty 07/27/13 Discontinu Tartrate DAY 14 ed Oxycodone Hcl 1-2 Tab PO Every 6 90 Qty 05/04/ 05/17/13 Discontinu hours 14 ed as needed Lisinopril 1 Tab PO DAILY 30 Qty 08/09/13 Discontinu 14 ed Trazodone Hcl 1 Tab PO BEDTIME 30 Qty 05/07/ 08/02/13 Discontinu 14 ed NEEDED Morphine 60 Mg PO TWICE A 60 Qty DO NOT FILL 06/10/13 Discontinu Sulfate DAY UNTIL 05/14/13 14 ed Glucose Blood 1 FS THREE 100 Qty 05/13/ 05/13/13 Discontinu Strips TIMES A 14 ed DAY Glucose Blood 1 FS THREE 100 Qty DX: 250.00 08/02/14 Discontinu Strips TIMES A IDDM 14 ed DAY Oxycodone Hcl 1-2 Tab PO Every 6 90 Qty 05/17/ 05/28/13 Discontinu hours 14 ed as needed Alprazolam 1 Tab PO Every 8 90 Qty 06/24/13 Discontinu hours 14 ed as needed Oxycodone Hcl 1-2 Tab PO Every 6 90 Qty 06/10/13 Discontinu hours 14 ed as needed Morphine 60 Mg PO TWICE A 60 Qty DO NOT FILL 07/12/13 Discontinu Sulfate DAY UNTIL 06/12/13 14 ed (DUE DATE 06/13) Oxycodone Hcl 1-2 Tab PO Every 6 90 Qty 06/24/13 Discontinu hours 14 ed as needed Venlafaxine 1 Cap PO DAILY 30 Qty 09/13/13 Discontinu Hcl 14 ed Oxycodone Hcl 1-2 Tab PO Every 6 90 Qty 07/07/13 Discontinu hours 14 ed as needed Alprazolam 1 Tab PO Every 8 90 Qty 07/23/13 Discontinu hours 14 ed as needed Oxycodone Hcl 1-2 Tab PO Every 6 90 Qty 07/07/ 07/22/13 Discontinu hours 14 ed as needed Morphine 60 Mg PO TWICE A 60 Qty 07/12/ 08/11/13 Discontinu Sulfate DAY 14 ed Oxycodone Hcl 1-2 Tab PO Every 6 90 Qty 08/05/13 Discontinu hours 14 ed as needed Alprazolam 1 Tab PO Every 8 90 Qty 07/23/ 08/20/13 Discontinu hours 14 ed as needed Simvastatin 1 Tab PO BEDTIME 30 Qty 07/27/ 10/25/13 Discontinu 14 ed Metoprolol 1 Tab PO TWICE A 60 Qty 10/25/13 Discontinu Tartrate DAY 14 ed Trazodone Hcl 1 Tab PO BEDTIME 30 Qty 09/01/13 Discontinu 14 ed NEEDED Oxycodone Hcl 1-2 Tab PO Every 6 90 Qty 08/05/ 08/18/13 Discontinu hours 14 ed as needed Lisinopril 1 Tab PO DAILY 30 Qty 09/06/13 Discontinu 14 ed Morphine 60 Mg PO TWICE A 60 Qty DO NOT FILL 09/10/13 Discontinu Sulfate DAY UNTIL 08/12/13 14 ed Oxycodone Hcl 1-2 Tab PO Every 6 90 Qty 09/01/13 Discontinu hours 14 ed as needed Alprazolam 1 Tab PO Every 8 90 Qty 09/21/13 Discontinu hours 14 ed as needed Oxycodone Hcl 1-2 Tab PO Every 6 90 Qty 09/01/ 09/14/13 Discontinu hours 14 ed as needed Morphine 60 Mg PO TWICE A 60 Qty 10/07/13 Discontinu Sulfate DAY 14 ed Oxycodone Hcl 1-2 Tab PO Every 6 90 Qty 09/28/13 Discontinu hours 14 ed as needed Alprazolam 1 Tab PO Every 8 90 Qty 10/21/13 Discontinu hours 14 ed as needed Oxycodone Hcl 1-2 Tab PO Every 6 90 Qty 10/08/13 Discontinu hours 14 ed as needed Morphine 60 Mg PO TWICE A 60 Qty DO NOT FILL 10/21/13 Discontinu Sulfate DAY UNTIL 10/09/13 14 ed (ACTUAL DUE DATE 10/11) Oxycodone Hcl 1-2 Tab PO Every 6 90 Qty 10/08/ 10/21/13 Discontinu hours 14 ed as needed Alprazolam 1 Tab PO Every 8 90 Qty 08/02/14 Discontinu hours 14 ed as needed Oxycodone Hcl 1-2 Tab PO Every 6 90 Qty 11/03/13 Discontinu hours 14 ed as needed Glyburide 1 Tab PO TWICE A 60 Qty 08/02/14 Discontinu DAY 14 ed Metformin Hcl 1 Tab PO TWICE A 60 Qty 08/02/14 Discontinu DAY 14 ed Hydroxyzine 50 Mg PO Every 6 20 Qty 08/02/14 Discontinu Hcl hours 14 ed as needed For . Diclofenac 75 Mg PO Every 20 Qty 08/02/14 Discontinu Sodium 12 14 ed hours as needed PRN PAIN Cyclobenzaprin 10 Mg PO Every 8 15 Qty 08/02/14 Discontinu e Hcl hours 14 ed as needed PRN SPASM Amlodipine 5 Mg PO DAILY 08/17/ Active Besylate For Not 15 specifi ed Omeprazole 40 Mg PO DAILY 08/17/ Active For Not 15 specifi ed Metformin Hcl 500 Mg PO TWICE A 08/17/ Active DAY For 15 Not specifi ed Acetaminophen/ 1 Tab PO For Not for pain 08/17/ Active Hydrocodone specifi 15 Bitart ed Social History Social History Problem Response Recorded Date/Time Hx Alcohol Use No 07/30/2011 2:14pm Hx Substance Use No 08/16/2014 11:57am Smoking Status Current some day smoker 08/17/2014 9:03am Query Response Start Date Stop Date Smoking Status Current some day smoker Hospital Discharge Instructions No hospital discharge instructions. Plan of Care Prescriptions See Medications Section Functional Status Query Response Date Recorded Overall Activities Daily Living Independ/No setup help August 17, 2014 9:03am Ability/Staff Support Allergies, Adverse Reactions, Alerts Allergen Type Severity Reaction Status Last Updated No Known Allergies Active 12/23/13 Immunizations Name Given Type Pneumonia Vaccine Received No Historical Had a Tetanus Toxoid Vaccination less than 10yrs ago Yes Historical Vital Signs Acute Vital Signs Vital Response Date/Time Blood Pressure 147/80 mm Hg Blood Pressure Mean 61 mm Hg Blood Pressure Mean 102 mm Hg Temperature (Fahrenheit) 98.0 degrees F (96.0 - 99.9) Temperature (Calculated Celsius) 36.13656 degrees C Temperature Source Oral Temperature Source Oral Temp 97.0 degrees F (96.0 - 99.9) Temperature (Calculated Celsius) 36.29169 degrees C Pulse Pulse Rate (adult) 79 bpm (60 - 100) Pulse Rate (adult) 59 bpm (60 - 100) Pulse Rate: ED 93 bpm Respiratory Rate 18 breaths per minute (10 - 20) Respiratory Rate 16 bpm (10 - 20) Height (Feet) 5 ft Height (Inches) 10.0 in. Weight (Pounds) 279.0 lbs Height 5 ft 10 in Weight 279 lb Body Mass Index 40.0 kg/m^2 Ambulatory Vital Signs Vital Response Date/Time Height 5 ft 10 in 08/02/2014 3:17pm Weight 286 lbs 08/02/2014 3:17pm Temperature 98.5 degrees F 08/02/2014 3:17pm Blood Pressure 115/76 mm Hg 08/02/2014 3:17pm Pulse Rate 98 bpm 08/02/2014 3:17pm Respiration Rate 17 bpm 08/02/2014 3:17pm Body Surface Area 2.59 m2 08/02/2014 3:17pm Body Mass Index 41.0 kg/m2 08/02/2014 3:17pm Results Test Source Date Result Interp. Ref. Comments Range Activated October 09, 35.7 SECONDS H 23.0-32.0 COMMENTS RM 2 Partial 2008 Thromboplast 4:52pm Time Alanine December 98 U/L H 5-40 FAX RESULTS TO Aminotransferas 2013 DR estevez (ALT/SGPT) 1:46pm MAKSOUDREPORT FAXED TO DR DURAN AT 1459 BY NRD. Albumin December 3.6 gm/dL N 3.2-5.0 FAX RESULTS TO 2013 1:46pm MAKSOUDREPORT FAXED TO DR DURAN AT 1459 BY NRD. Albumin/Globuli December 1.1 L 1.4-2.4 COMMENTS ROOM n Ratio 2008 1 10:45am Alkaline December 100 U/L N 35-125 FAX RESULTS TO Phosphatase 2013 1:46pm MAKSOUDREPORT FAXED TO DR DURAN AT 1459 BY NRD. Amylase Level May 15, 78 U/L N 16-108 COMMENTS? ROOM 2004 3 11:58am Anion Gap December 10.7 N 6-13 COMMENTS ROOM 2008 1 10:45am Aspartate Amino December 82 U/L H 5-40 FAX RESULTS TO Transf 2013 (AST/SGOT) 1:46pm MAKSOUDREPORT FAXED TO DR DURAN AT 1459 BY NRD. Atypical February 11.0 % H 0-2 Lymphocytes 1999 12:00pm B-Type [place] 30, 66 pg/ml N 15-100 COMMENTS RM 2 Natriuretic 2009 Peptide 4:52pm BUN/Creatinine December 20.0 COMMENTS ROOM Ratio 2008 10:45am Band February 1.0 % N 0-7 Neutrophils 1999 12:00pm Basophils # December 0.0 K/mm3 N 0-0.2 COMMENTS ROOM (Auto) 2008 10:45am Basophils (%) December 0.3 % N 0-1 COMMENTS ROOM (Auto) 2008 10:45am Basophils February 1.0 % N 0-1 (Manual) 1999 12:00pm Bedside Blood September 15, 15 mg/dL N 8-25 Urea Nitrogen 2007 5:02pm Bedside Calcium September 15, 4.5 mg/dL N 4.5-5.3 2007 5:02pm Bedside September 15, 102 mEq/L N 98-116 Chloride 2007 5:02pm Bedside September 15, 0.8 mg/dL L 0.9-1.6 Creatinine 2007 5:02pm Bedside Glucose August 08, 116 mg/dL N 70-649 93 3233 9:26am Bedside September 15, 55.0 % H 40.0-54.0 Hematocrit 2007 5:02pm Bedside September 15, 19.0 g/dL H 14.0-18.0 Hemoglobin 2007 5:02pm Bedside September 15, 4.1 mEq/L N 3.5-5.1 Potassium 2007 5:02pm Bedside Sodium September 15, 137 mEq/L N 348-774 1916 5:02pm Bedside December 0.00 ng/mL N 0.0-0.03 <0.03 ng/mL=NORMAL0.04 - 0.50 ng/mL=CARDIAC CONDITION Troponin I 2008 >0.50 ng/mL=SUGGESTS AMI 11:33am Benzodiazepines April 14, Positive NEGATIVE ROOM/COMMENTS Screen 2009 ROOM 9 11:00am COLLECTED @1100 AND SENT TO LAB Blood Urea December 12 mg/dL N 8-25 COMMENTS ROOM Nitrogen 2008 10:45am Calcium Level December 8.9 mg/dL N 8.2-10.6 COMMENTS ROOM 2008 10:45am Carbon Dioxide December 23 mEq/L N 22-34 COMMENTS ROOM Level 2008 10:45am Chloride Level December 109 mEq/L N 98-116 COMMENTS ROOM 12, 2009 1 10:45am Cholesterol December 131 mg/dL N 120-200 FAX RESULTS TO Level 2013 DR 1:46pm MAKSOUDREPORT FAXED TO DR DURAN AT 1459 BY NRD. Cholesterol December 2.729 FAX RESULTS TO Ratio (LDL/HDL) 2013 DR 1:46pm MAKSOUDREPORT FAXED TO DR DURAN AT 1459 BY NRD. Cocaine Screen April 14, Negative NEGATIVE ROOM/COMMENTS 2009 ROOM 9 11:00am COLLECTED @1100 AND SENT TO LAB Creatine Kinase May 25, 1.2 ng/mL N 0.0-6.0 COMMENTS? ROOM 2003 3 11:58am Creatinine December 0.60 mg/dL L 0.9-1.6 COMMENTS ROOM 2008 10:45am Direct November 0.3 mg/dL N 0-0.4 FAX RESULTS TO Bilirubin 2013 1:46pm MAKSOUDREPORT FAXED TO DR DURAN AT 1459 BY NRD. Drug Screen (T) April 14, Positive NEGATIVE ROOM/COMMENTS 2009 ROOM 9 11:00am COLLECTED @1100 AND SENT TO LAB Eosinophils # December 0.1 K/mm3 N 0-0.8 COMMENTS ROOM (Auto) 2008 10:45am Eosinophils (%) December 0.9 % N 0-7.0 COMMENTS ROOM (Auto) 2008 10:45am Eosinophils February 8.0 % PH 0-7.0 (Manual) 1999 12:00pm Erythrocyte February 4 mm/hr N 0-20 Sedimentation 1999 Rate 12:00pm Globulin December 3.1 gm/dL H 2.0-3.0 COMMENTS ROOM 2008 10:45am Glomerular November > 60.00 MULTIPLY RESULT BY 1.210 IF THE PATIENT IS -AMERICANUnits are mL/min/1.73 m2 Filtration Rate 2008 mL/min > 60 Normal kidney function Calc 10:45am 30-59 Moderately decreased kidney function 15-29 Severely decreased kidney function <15 End-stage kidney failure HDL Cholesterol December 48 mg/dL N 40-80 FAX RESULTS TO 2013 1:46pm MAKSOUDREPORT FAXED TO DR DURAN AT 1459 BY NRD. Hematocrit December 46.2 % N 40.0-54.0 COMMENTS ROOM 2008 1 10:45am Hemoglobin December 16.3 g/dL N 14.0-18.0 COMMENTS ROOM 2008 10:45am Immature Blood December 0.1 X10.e3/U N 0-0.4 COMMENTS ROOM Cells 2008 1 10:45am Indirect November 0.9 mg/dL H 0.1-0.8 FAX RESULTS TO Bilirubin 2013 1:46pm MAKSOUDREPORT FAXED TO DR DURAN AT 1459 BY NRD. LDL Cholesterol December 63 mg/dL N 25-100 FAX RESULTS TO 2013 1:46pm MAKSOUDREPORT FAXED TO DR DURAN AT 1459 BY NRD. Lab Scanned October Lab Scanned Report 2013 Report 3:00pm [id number] Lymphocytes # December 1.1 K/mm3 N 0.9-5.2 COMMENTS ROOM (Auto) 2008 1 10:45am Lymphocytes (%) December 17.8 % N 16.0-44.0 COMMENTS ROOM (Auto) 2008 1 10:45am Lymphocytes February 33.0 % N 21.0-51.0 (Manual) 1999 12:00pm Mean December 32.2 pg N 26-33 COMMENTS ROOM Corpuscular 2008 1 Hemoglobin 10:45am Mean December 35.2 g/dL N 31-36 COMMENTS ROOM Corpuscular 2008 1 Hemoglobin 10:45am Concent Mean December 91.2 fL N 80.0-94.0 COMMENTS ROOM Corpuscular 2008 1 Volume 10:45am Mean Platelet December 7.7 fL N 7.0-11.0 COMMENTS ROOM Volume 2008 1 10:45am Monocytes # December 0.5 K/mm3 N 0.16-1.0 COMMENTS ROOM (Auto) 2008 1 10:45am Monocytes (%) December 8.0 % N 2.0-9.0 COMMENTS ROOM (Auto) 2008 1 10:45am Monocytes February 12.0 % PH 2.0-9.0 (Manual) 1999 12:00pm Neutrophils February 34.0 % PL 42.0-75.0 1999 12:00pm Neutrophils # December 4.4 K/mm3 N 1.9-8.0 COMMENTS ROOM (Auto) 2008 1 10:45am Neutrophils (%) December 71.9 % N 42.0-75.0 COMMENTS ROOM (Auto) 2008 10:45am Platelet Count December 149 K/mm3 N 130-400 COMMENTS ROOM 2008 10:45am Potassium Level December 3.7 mEq/L N 3.5-5.1 COMMENTS ROOM 2008 1 10:45am Prothromb Time October 09, 2.23 N 2.0-3.0 COMMENTS RM 2 International 2009 Ratio 4:52pm Prothrombin October 09, 21.1 SECONDS H 9.0-11.0 COMMENTS RM 2 Time 2008 4:52pm Random Glucose December 164 mg/dL H 65-115 COMMENTS ROOM 2008 10:45am Red Blood Count December 5.07 M/mm3 N 4.60-5.40 COMMENTS ROOM 2008 10:45am Red Cell December 12.4 % N 11.5-14.5 COMMENTS ROOM Distribution 2008 1 Width 10:45am Sodium Level December 139 mEq/L N 133-145 COMMENTS ROOM 2008 10:45am Thyroid September 21, 0.91 uIU/ml N 0.34-5.60 DIAB ED Stimulating 2009 Hormone (TSH) 7:33am Total Bilirubin December 1.2 mg/dL N 0.1-1.3 FAX RESULTS TO 2013 DR 1:46pm ROGERREPORT FAXED TO DR DURAN AT 1459 BY NRD. Total Creatine September 15, 30 U/L N 10-180 COMMENTS?ROOM Kinase 2007 11 4:20pm Total Protein December 7.2 gm/dL N 6.0-8.4 FAX RESULTS TO 2013 1:46pm ROGERREPORT FAXED TO DR DURAN AT 1459 BY NRD. Triglycerides December 101 mg/dL N 45-150 FAX RESULTS TO Level 2013 1:46pm ROGERREPORT FAXED TO DR DURAN AT 1459 BY NRD. Troponin I May 25, 0.02 ng/mL N 0.0-0.03 <0.03 ng/mL= NORMAL0.04 - 0.50 ng/mL=CARDIAC CONDITION 2003 >0.50 ng/mL=SUGGESTS AMI 11:58am Ur Tricyclic April 14, Negative NEGATIVE ROOM/COMMENTS Antidepressants 2009 ROOM 9 Screen 11:00am COLLECTED @1100 AND SENT TO LAB Urine Amorphous November None COMMENTS ROOM 1SOURCE: URINE, CLEAN CATCH Sediment 2008 HAS SPECIMEN BEEN OBTAINED/COLLECTED? Y 10:59am Urine April 14, Negative NEGATIVE ROOM/COMMENTS Amphetamines 2009 ROOM 9 Screen 11:00am COLLECTED @1100 AND SENT TO LAB Urine November Clear COMMENTS ROOM 1SOURCE: URINE, CLEAN CATCH Appearance 2008 HAS SPECIMEN BEEN OBTAINED/COLLECTED? Y 10:59am Urine Bacteria December Trace NEGATIVE COMMENTS ROOM 1SOURCE: URINE, CLEAN CATCH 2008 HAS SPECIMEN BEEN OBTAINED/COLLECTED? Y 10:59am Urine April 14, Negative NEGATIVE ROOM/COMMENTS Barbiturates 2009 ROOM 9 11:00am COLLECTED @1100 AND SENT TO LAB Urine Bilirubin December Negative NEGATIVE COMMENTS ROOM 1SOURCE: URINE , CLEAN CATCH 2008 HAS SPECIMEN BEEN OBTAINED/COLLECTED? Y 10:59am Urine April 14, Negative NEGATIVE ROOM/COMMENTS Cannabinoids 2009 ROOM 9 11:00am COLLECTED @1100 AND SENT TO LAB Urine Casts December None /lpf NONE COMMENTS ROOM 1SOURCE: URINE, CLEAN CATCH 2008 HAS SPECIMEN BEEN OBTAINED/COLLECTED? Y 10:59am Urine Color December Dk yellow COMMENTS ROOM 1SOURCE: URINE, CLEAN CATCH 2008 HAS SPECIMEN BEEN OBTAINED/COLLECTED? Y 10:59am Urine Crystals December None /hpf NONE COMMENTS ROOM 1SOURCE: URINE, CLEAN CATCH 2008 HAS SPECIMEN BEEN OBTAINED/COLLECTED? Y 10:59am Urine November Few /lpf COMMENTS ROOM 1SOURCE: URINE, CLEAN CATCH Epithelial 2008 HAS SPECIMEN BEEN OBTAINED/COLLECTED? Y Cells 10:59am Urine Glucose December Negative NEGATIVE COMMENTS ROOM 1SOURCE: URINE, CLEAN CATCH (UA) 2008 HAS SPECIMEN BEEN OBTAINED/COLLECTED? Y 10:59am Urine Ketones December 2+ NEGATIVE COMMENTS ROOM 1SOURCE: URINE, CLEAN CATCH 2008 HAS SPECIMEN BEEN OBTAINED/COLLECTED? Y 10:59am Urine Leukocyte December Negative NEGATIVE COMMENTS ROOM 1SOURCE: URINE , CLEAN CATCH Esterase 2008 HAS SPECIMEN BEEN OBTAINED/COLLECTED? Y 10:59am Urine Methadone April 14, Negative NEGATIVE ROOM/COMMENTS Screen 2009 ROOM 9 11:00am COLLECTED @1100 AND SENT TO LAB Urine April 14, Negative NEGATIVE ROOM/COMMENTS Methamphetamine 2009 ROOM 9 s Screen 11:00am COLLECTED @1100 AND SENT TO LAB Urine September 21.0 mg/L N 5-17 DIAB ED Microalbumin 2008 7:33am Urine Mucus December 2+ NEGATIVE COMMENTS ROOM 1SOURCE: URINE, CLEAN CATCH 2008 HAS SPECIMEN BEEN OBTAINED/COLLECTED? Y 10:59am Urine Nitrate December Negative NEGATIVE COMMENTS ROOM 1SOURCE: URINE, CLEAN CATCH 2008 HAS SPECIMEN BEEN OBTAINED/COLLECTED? Y 10:59am Urine Occult December Negative NEGATIVE COMMENTS ROOM 1SOURCE: URINE, CLEAN CATCH Blood 2008 HAS SPECIMEN BEEN OBTAINED/COLLECTED? Y 10:59am Urine Opiates April 14, Negative NEGATIVE ROOM/COMMENTS Screen 2009 ROOM 9 11:00am COLLECTED @1100 AND SENT TO LAB Urine April 14, Negative NEGATIVE ROOM/COMMENTS Phencyclidine 2009 ROOM 9 Screen 11:00am COLLECTED @1100 AND SENT TO LAB Urine April 14, Negative NEGATIVE ROOM/COMMENTS Propoxyphene 2009 ROOM 9 Screen 11:00am COLLECTED @1100 AND SENT TO LAB Urine Protein December Negative NEGATIVE COMMENTS ROOM 1SOURCE: URINE, CLEAN CATCH 2008 HAS SPECIMEN BEEN OBTAINED/COLLECTED? Y 10:59am Urine RBC December 1-3 /hpf NONE COMMENTS ROOM 1SOURCE: URINE, CLEAN CATCH 2008 HAS SPECIMEN BEEN OBTAINED/COLLECTED? Y 10:59am Urine Specific December 1.015 COMMENTS ROOM 1SOURCE: URINE, CLEAN CATCH [place] 2008 HAS SPECIMEN BEEN OBTAINED/COLLECTED? Y 10:59am Urine December 1.0 E.U./dL 0.2-1.0 COMMENTS ROOM 1SOURCE: URINE, CLEAN CATCH Urobilinogen 2008 HAS SPECIMEN BEEN OBTAINED/COLLECTED? Y 10:59am Urine WBC December Occasional NONE COMMENTS ROOM 1SOURCE: URINE, CLEAN CATCH 2008 /hpf HAS SPECIMEN BEEN OBTAINED/COLLECTED? Y 10:59am Urine WBC December None NONE COMMENTS ROOM 1SOURCE: URINE, CLEAN CATCH Clumps 2008 HAS SPECIMEN BEEN OBTAINED/COLLECTED? Y 10:59am Urine pH December 6.0 COMMENTS ROOM 1SOURCE: URINE, CLEAN CATCH 2008 HAS SPECIMEN BEEN OBTAINED/COLLECTED? Y 10:59am VLDL December 20.2 N 5-40 FAX RESULTS TO Cholesterol 2013 1:46pm ROGERREPORT FAXED TO DR DURAN AT 1459 BY NRD. White Blood December 6.12 K/mm3 N 5.0-10.0 COMMENTS ROOM Count 2008 1 10:45am Whole Blood September 24 N 10-20 Anion Gap 2007 5:02pm Blood Culture Blood August 30, No growth. 2008 9:35pm Influenza Virus Nasopharyngeal November A & B 2008 Smear 10:45am Urine Culture Urine,Random August 22, 2005 5:00pm Wound Culture Leg-Left August 31, Streptococcus 2003 [facility] 4:35pm Procedures No known history of procedures. Encounters Encounter Location Date/Time Office Visit TAPAN PINEDA 08/02/14 2:45pm Departed Emergency Room [facility] 01/03/14 1:50pm Departed Emergency Room [facility] 12/27/13 4:11pm Departed Emergency Room [facility] 12/23/13 12:18am Registered Clinic [facility] 12/09/13 8:33am Office Visit NANO MILIAN 10/21/13 1:15pm Recent Diagnosis Colon cancer screening
--- OUTSIDE RECORDS SUMMARY | 2017-07-10 18:56 | External Medical Summary | Continuity of Care Document ---
:1950 Author Organization Trina Torres [facility] Phone Unavailable Care Team Providers Name Role Phone SHER CHRISTINA M.D. Primary Care Physician Insurance Providers Guarantor Bravo Ortiz Address [address] [place] [address] Payer s Medicare Policy Number [id number] Subscriber's Name Bravo Ortiz Relationship 01 Self / Same As Patient Effective Date 10 Advance Directives No advance directive information available. Chief Complaint and Reason for Visit Chief Complaint Medical Problem Minor Reason for Visit Suicidal ideation Substance abuse or dependence Problems Medical Problem Onset Date Status Abdominal [...] Applicable Not Applicable Smoking Status Former smoker 02/21/2017 12:38pm Not Applicable Not Applicable Smoking Status Start Date Stop Date Former smoker Hospital Discharge Instructions No hospital discharge instruction information available. Plan of Care Discharge Date 02/21/17 3:53pm Disposition 01 HOME, SELF-CARE Condition at Discharge Stable Instructions/Education Provided Suicide Prevention for Adults (ED) Medical Clearance for Substance Abuse Treatment (ED) Prescriptions See Medication Section Referrals SHER CHRISTINA M.D. Address: [address] [place] [id number] Additional Instructions/Education 1. Follow up with your doctor in 2-3 days. Make arrangements to see [facility] on Friday. 2. Rest and drink plenty of fluids. 3. Avoid further use prescribed medications other than as prescribed. 4. Return to ER if worsening symptoms, worsening confusion, difficulty arousing, any other concerns. Functional Status No functional status information available. Allergies, Adverse Reactions, Alerts No known allergies. 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 Lot Number Hostess Reason Number Influenza 11/16/10 Administered 1 [id number] SANOFI PASTEUR Vaccine, Inactivated Influenza 12/13/11 Administered 2 [id number] [employer]i P[employer]ur Vaccine, Inactivated Vital Signs Acute Vital Signs Vital Response Date/Time Blood Pressure 112/65 mm Hg 02/21/2017 3:12pm Blood Pressure Mean 61 mm Hg 08/17/2014 11:10am Blood Pressure Mean 81 mm Hg 02/21/2017 3:12pm Temperature (Fahrenheit) 97.9 degrees F (96.0 - 99.9) 02/21/2017 12:32pm Temperature (Calculated Celsius) 36.53858 degrees C 02/21/2017 12:32pm Temperature Source Oral 08/17/2014 11:14am Temperature Source Oral 02/21/2017 12:32pm Temp 97.0 degrees F (96.0 - 99.9) 08/17/2014 11:08am Temperature (Calculated Celsius) 36.92067 degrees C 08/17/2014 11:08am Pulse Pulse Rate (adult) 78 bpm (60 - 100) 04/04/2016 10:45am Pulse Rate (adult) 59 bpm (60 - 100) 08/17/2014 11:10am Pulse Rate: ED 95 bpm 02/21/2017 3:12pm Respiratory Rate 16 breaths per minute (10 - 20) 02/21/2017 12:32pm Respiratory Rate 16 bpm (10 - 20) 08/17/2014 11:10am Height (Feet) 5 ft 02/21/2017 12:32pm Height (Inches) 11.0 in. 02/21/2017 12:32pm Weight (Pounds) 240.0 lbs 02/21/2017 12:32pm Height 5 ft 11 in 02/21/2017 12:32pm Weight 240 lb 02/21/2017 12:32pm Body Mass Index 33.5 kg/m^2 02/21/2017 12:32pm Ambulatory Vital Signs Vital Response Date/Time Height [...] 8:25am Urine Specific >=1.03 1.005-1.030 10/28/2015 10/28/2015 [place] 0 8:10am 8:25am Urine Occult NEGATIVE NEGATIVE [...] 4.0-6.0 03/27/2016 03/27/2016 12:40pm 2:20pm Hepatitis C 229042 IU/mL Negative 08/05/2016 08/08/2016 RNA (DNA PCR) 9:27am 3:28pm Hepatitis C 5.7 08/05/2016 08/08/2016 This test is for monitoring of HCV positive patients only and RNA (PCR) 9:27am 3:28pm should not be used as a screening test for HCV infection. log10 Hepatitis C RNA performed at [facility], [address] [place] [address] Lab Tester Vandana Conklin DO Prothrombin 11.9 SECONDS 9.0-12.0 12/24/2016 12/24/2016 Time 4:35am 6:43am Prothromb Time 1.09 L 2.0-3.0 12/24/2016 12/24/2016 International THERAPEUTIC 4:35am 6:43am Ratio Tumor Marker 7.7 IU/mL 0.0-8.8 12/24/2016 12/24/2016 Alpha-Fetoprotein performed at [facility], [address], [place] Alpha 4:35am 11:41pm [id number] Lab Tester Vandana Conklin DO Fetoprotein White Blood 7.8 [...] RESULT BY 1.210 IF THE PATIENT IS -[place] Filtration 8:28am 9:08am Units are mL/min/1.73 m2 [...] Status Date Provider(s) DIAGNOSTIC COLONOSCOPY Completed 08/17/14 REMBERTO PINEDA M.D. THER/PROPH/DIAG INJ IV PUSH Completed 04/14/15 YA THOMAS M.D. HYDRATE IV INFUSION ADD-ON Completed 04/14/15 YA THOMAS M.D. THER/PROPH/DIAG INJ SC/IM Completed 10/21/15 MARCUS MAN M.D. THER/PROPH/DIAG INJ IV PUSH Completed 10/28/15 MARCUS MAN M.D. TX/PRO/DX INJ NEW DRUG ADDON Completed 10/28/15 MARCSU MAN M.D. TX/PRO/DX INJ NEW DRUG ADDON Completed 10/28/15 MARCUS MAN M.D. TX/PRO/DX INJ SAME DRUG HEAD ATHLETIC TRAINER/STRENGTH COACH Completed 10/28/15 MARCUS MAN M.D. HYDRATE IV INFUSION ADD-ON Completed 10/28/15 MARCUS MAN M.D. THER/PROPH/DIAG INJ SC/IM Completed 10/30/15 MARCUS MAN M.D. THER/PROPH/DIAG INJ SC/IM Completed 02/09/16 MARCUS MAN M.D. Encounters Encounter Location Arrival/Admit Date Discharge/Depart Date Attending Provider Departed Trina Torres 02/21/17 12:30pm 02/21/17 3:53pm YA THOMAS Emergency Room [facility]. Bhavani Colvin M.D. Departed Trina Torres 02/20/17 7:47am 02/20/17 10:15am DONOVAN, Emergency Room [facility]. [facility] MARCUS Carter Registered Trina Torres 01/09/17 8:58am ZAZACHT, Referred Mem. [facility] RYAN Han M.D. Registered [facility] Torres 12/24/16 4:24am ZAYAT, Referred Mem. [facility] RYAN Han M.D. Registered [facility] Torres 09/12/16 6:46am ANTOINETTE DURAN Referred Mem. [facility] Raul Registered Trina Torres 08/05/16 8:50am NIGHTENGALE, Referred Mem. [facility] SHER Beckham M.D. Registered [facility] Torres 04/30/16 8:19am NIGHTENGALE, Referred Mem. Bhavani Beckham M.D. Departed Clinic Tr[facility] Torres 04/04/16 10:01am 04/04/16 2:42pm MAKANTOINETTE ENGLE Mem. [facility] Raul Registered Trina Torres 03/27/16 12:36pm NIGHTENGALE, Referred Mem. Bhavani Beckham M.D. Departed [facility] Torres 02/09/16 3:44pm 02/09/16 5:45pm DONOVAN, Emergency Room [facility]. Bhavani VELAZQUEZ M.D. Discharged [facility] Torres 12/26/15 1:28pm 02/09/16 11:59pm NIGHTENGALE, Recurring Mem. Bhavani Beckham M.D. Departed Tr[facility] Torres 10/30/15 3:25pm 10/30/15 9:52pm DONOVAN Emergency Room [facility]. Bhavani VELAZQUEZ M.D. Departed [facility] Torres 10/28/15 6:57am 10/28/15 7:35pm DONOVAN Emergency Room [facility]. Bhavani VELZAQUEZ M.D. Registered Tr[facility] Torres 10/23/15 7:03am NIGHTENGALE, Referred Mem. Bhavani Beckham M.D. Departed [facility] Torres 10/21/15 9:57pm 10/21/15 11:04pm MAN, Emergency Room [facility]. Bhavani VELAZQUEZ M.D. Departed Tr[facility] Torres 10/02/15 2:22pm 10/02/15 4:50pm MAN, Emergency Room [facility]. Bhavani VELAZQUEZ M.D. Registered Tr[facility] Torres 09/27/15 11:23am NIGHTENGALE, Referred Mem. Bhavani Beckham M.D. Registered Trina Torres 09/14/15 2:55pm NIGHTENGALE, Referred Mem. Bhavani Beckham M.D. Departed rTina Torres 06/11/15 4:32pm 06/11/15 10:14pm MAN, Emergency Room [facility]. Bhavani VELAZQUEZ M.D. Departed Trina Torres 04/14/15 6:02am 04/14/15 7:30am YA THOMAS Emergency Room [facility]. Bhavani Colvin M.D. Departed Tr[facility] Torres 08/17/14 9:03am 08/17/14 11:45am REMBERTO PINEDA [facility] Bhavani Small M.D. Care Registered Remberto Pineda 08/02/14 2:39pm REMBERTO PINEDA M.D. Recent Diagnosis
--- OUTSIDE RECORDS SUMMARY | 2017-07-10 18:57 | External Medical Summary | Continuity of Care Document ---
:1950 Author Organization Trina Torres [employer] Phone Unavailable Care Team Providers Name Role Phone SHER CHRISTINA M.D. Unavailable Insurance Providers Guarantor Bravo Ortiz Address [address] [place] [address] Payer s Medicare Policy Number [id number] Subscriber's Name Bravo Ortiz Relationship 01 Self / Same As Patient Effective Date 10 Chief Complaint and Reason for Visit Chief Complaint Respiratory Problem Reason for Visit [id number] Hepatitis C Rotator cuff tendinitis Dyspnea Elevated [...] Stable Prescriptions See Medication Section Referrals SHER CHRITSINA M.D. Address: [address] [place] [address] Additional Instructions/Education Follow up with Dr. Christina [...] Date Type Not Given Dose Lot Number Bottom Filler Reason Number Influenza 11/16/10 Administered 1 [id number] SANOFI PASTEUR Vaccine, Inactivated Influenza 12/13/11 Administered 2 [id number] Sanofi Pasteur Vaccine, Inactivated Vital Signs Acute Vital Signs Vital Response Date/Time Blood Pressure 156/104 mm Hg 02/09/2016 5:45pm Blood Pressure Mean 61 mm Hg 08/17/2014 11:10am Blood Pressure Mean 121 mm Hg 02/09/2016 5:45pm Temperature (Fahrenheit) 98.1 degrees F (96.0 - 99.9) 10/30/2015 3:27pm Temperature (Calculated Celsius) 36.12816 degrees C 10/30/2015 3:27pm Temperature Source Oral 08/17/2014 11:14am Temperature Source Oral 10/30/2015 3:27pm Temp 97.0 degrees F (96.0 - 99.9) 08/17/2014 11:08am Temperature (Calculated Celsius) 36.64719 degrees C 08/17/2014 11:08am Pulse Pulse Rate [...] 8:25am Urine Specific >=1.03 1.005-1.03 10/28/2015 10/28/2015 [place] 0 0 8:10am 8:25am Urine Occult Blood [...] Benzodiazepines 4:00pm 4:14pm AND CALLED TO Screen ER/AAZR AT 1613 BY [id number]. Urine Cocaine Negative NEGATIVE 10/30/2015 10/30/2015 Screen [...] RESULT BY 1.210 IF THE PATIENT IS -MICRONESIAN
Filtration Rate 4:31pm 5:24pm Units are mL/min/1.73 [...] 02/09/16 3:44pm 02/09/16 5:45pm MAN, Emergency Room [facility]. Bhavani VELAZQUEZ M.D. Discharged [facility] 12/26/15 1:28pm 02/09/16 11:59pm NIGHTENGALE, Recurring Mem. Bhavani Beckham M.D. Departed Trina Torres 10/30/15 3:25pm 10/30/15 9:52pm MAN, Emergency Room [facility]. Bhavani VELAZQUEZ M.D. Departed Trina Torres 10/28/15 6:57am 10/28/15 7:35pm MAN, Emergency Room [facility]. Bhavani VELAZQUEZ M.D. Registered Trina Torres 10/23/15 7:03am NIGHTENGALE, Referred Mem. Bhavani Beckham M.D. Departed Trina Torres 10/21/15 9:57pm 10/21/15 11:04pm MAN, Emergency Room [facility]. Bhavani VELAZQUEZ M.D. Departed Trina Torres 10/02/15 2:22pm 10/02/15 4:50pm MAN, Emergency Room [facility]. Bhavani VELAZQUEZ M.D. Registered Trina Torres 09/27/15 11:23am [place], Referred Mem. Bhavani Beckham M.D. Registered Trina Torres 09/14/15 2:55pm [place], Referred Mem. [facility] SHER Beckham M.D. Departed Trina Torres 06/11/15 4:32pm 06/11/15 10:14pm DONOVAN, Emergency Room Mem. [facility] MARCUS Carter Departed Trina Torres 04/14/15 6:02am 04/14/15 7:30am YA THOMAS Emergency Room Mem. [facility] Vinicius Carter Departed Trina Torres 08/17/14 9:03am 08/17/14 11:45am REMBERTO THOMAS Surgical Day [facility]. [facility] Staci Carter Care Office Visit REMBERTO THOMAS 08/02/14 2:45pm REMBERTO THOMAS M.D. Registered Remberto Thomas 08/02/14 2:39pm REMBERTO THOMAS M.D. Registered Trina Torres 04/20/14 4:36pm MISAEL MATOS Referred Mem. [facility] Raul Registered Trina Torres 02/23/14 10:52am ANTOINETTE DURAN Referred Mem. [facility] Raul Departed Trina Torres 01/03/14 1:50pm 01/03/14 4:09pm YA THOMAS Emergency Room Mem. [facility] Vinicius Carter Departed Trina Torres 12/27/13 4:11pm 12/27/13 6:19pm DONOVAN, Emergency Room Mem. [facility] MARCUS Carter Departed Trina Torres 12/23/13 12:18am 12/23/13 1:11am SHAISTA Emergency Room [facility]. [facility] EDYTA Craft M.D. Registered Trina Torres 12/16/13 1:42pm ANTOINETTE DURAN [facility] 12/09/13 8:33am 12/09/13 11:56am ANTOINETTE DURAN [facility]. [facility] Office Visit NANO Sharma 10/21/13 1:15pm RUKHSANA MILIAN MD Registered Nano Sharma 10/21/13 1:15pm Frances MILIAN MD Recent Diagnosis
--- OUTSIDE RECORDS SUMMARY | 2017-07-10 18:57 | External Medical Summary | Continuity of Care Document ---
:1950 Author Organization Trina Torres [facility] Phone Unavailable Care Team Providers Name Role Phone SHER CHRISTINA M.D. Primary Care Physician Insurance Providers Guarantor Bravo Ortiz Address [address] [place] [address] Payer s Medicare Policy Number [id number] Subscriber's Name Bravo Ortiz Relationship 01 Self / Same As Patient Effective Date 10 Chief Complaint and Reason for Visit Chief Complaint Suicidal Ideation Reason for Visit [id number] Problems Active Problems Medical Problem Onset Date [...] Date Abdominal pain Unknown Acute anxiety Unknown Narcotic addiction Unknown Opioid abuse Unknown Pre-hypertension Unknown [...] Applicable Not Applicable Smoking Status Former smoker 10/28/2015 7:07am Not Applicable Not Applicable Query Response Start Date Stop Date Smoking Status Former smoker Hospital Discharge Instructions No hospital discharge instructions. Plan of Care Discharge Date 10/28/15 7:35pm Disposition 02 XFER SHT-TRM HOSP (ACUTE) Condition at Discharge Stable Prescriptions See Medication Section Referrals SHER CHRISTINA M.D. Address: [address] [place] [address] Functional Status No functional status results. Allergies, Adverse Reactions, Alerts No known allergies. 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 Lot Number Glove Turner And Former Automatic Reason Number Influenza 11/16/10 Administered 1 [id number] SANOFI PASTEUR Vaccine, Inactivated Influenza 12/13/11 Administered 2 [id number] Sanofi Pasteur Vaccine, Inactivated Vital Signs Acute Vital Signs Vital Response Date/Time Blood Pressure 178/91 mm Hg 10/28/2015 7:26pm Blood Pressure Mean 61 mm Hg 08/17/2014 11:10am Blood Pressure Mean 120 mm Hg 10/28/2015 7:26pm Temperature (Fahrenheit) 98.2 degrees F (96.0 - 99.9) 10/28/2015 6:59am Temperature (Calculated Celsius) 36.23474 degrees C 10/28/2015 6:59am Temperature Source Oral 08/17/2014 11:14am Temperature Source Oral 10/28/2015 6:59am Temp 97.0 degrees F (96.0 - 99.9) 08/17/2014 11:08am Temperature (Calculated Celsius) 36.02807 degrees C 08/17/2014 11:08am Pulse Pulse Rate (adult) 110 bpm (60 - 100) 10/28/2015 6:59am Pulse Rate (adult) 59 bpm (60 - 100) 08/17/2014 11:10am Pulse Rate: ED 112 bpm 10/28/2015 7:26pm Respiratory Rate 18 breaths per minute (10 - 20) 10/28/2015 6:23pm Respiratory Rate 16 bpm (10 - 20) 08/17/2014 11:10am Height (Feet) 5 ft 10/28/2015 6:59am Height (Inches) 11.0 in. 10/28/2015 6:59am Weight (Pounds) 264.8 lbs 10/28/2015 6:59am Height 5 ft 11 in 10/28/2015 6:59am Weight 264.80 lb 10/28/2015 6:59am Body Mass Index 36.9 kg/m^2 10/28/2015 6:59am Ambulatory Vital Signs Vital Response Date/Time Height [...] mg/dL 120-200 12/16/2013 12/16/2013 1:46pm 2:58pm Triglycerides Level 101 mg/dL 45-150 12/16/2013 12/16/2013 1:46pm 2:58pm LDL Cholesterol 63 mg/dL 25-100 [...] pg/mL 15-100 10/02/2015 10/02/2015 Peptide 2:57pm 3:42pm White Blood Count 5.8 K/uL 5.0-10.0 10/28/2015 10/28/2015 7:40am 7:53am Red Blood Count 5.63 M/uL H 4.60-5.40 10/28/2015 10/28/2015 7:40am 7:53am Hemoglobin 17.7 g/dL 14.0-18.0 10/28/2015 10/28/2015 7:40am 7:53am Hematocrit 49.7 % 40.0-54.0 10/28/2015 10/28/2015 7:40am 7:53am Mean Corpuscular 88.3 fL 80.0-94.0 10/28/2015 10/28/2015 Volume 7:40am 7:53am Mean Corpuscular 31.4 pg 26.0-33.0 10/28/2015 10/28/2015 Hemoglobin 7:40am 7:53am Mean Corpuscular 35.6 g/dL 31.0-36.0 10/28/2015 10/28/2015 Hemoglobin Concent 7:40am 7:53am Red Cell Distribution 12.6 % 11.5-14.5 10/28/2015 10/28/2015 Width 7:40am 7:53am RDW Standard 40.9 fL 35.1-43.9 10/28/2015 10/28/2015 Deviation 7:40am 7:53am Platelet Count 145 K/uL 130-400 10/28/2015 10/28/2015 7:40am 7:53am Mean Platelet Volume 8.3 fL 7.0-11.0 10/28/2015 10/28/2015 7:40am 7:53am Neutrophils (%) 56.1 % 42.0-75.0 10/28/2015 10/28/2015 (Auto) 7:40am 7:53am Lymphocytes (%) 31.6 % 16.0-44.0 10/28/2015 10/28/2015 (Auto) 7:40am 7:53am Monocytes (%) (Auto) 8.5 % 2.0-9.0 10/28/2015 10/28/2015 7:40am 7:53am Eosinophils (%) 2.3 % 0-7.0 10/28/2015 10/28/2015 (Auto) 7:40am 7:53am Basophils (%) (Auto) 1.0 % 0-1 10/28/2015 10/28/2015 7:40am 7:53am Immature Granulocyte 0.5 % 0-0.5 10/28/2015 10/28/2015 % (Auto) 7:40am 7:53am Nucleated Red Blood 0.0 /100WB 0-0 10/28/2015 10/28/2015 Cells % C 7:40am 7:53am Neutrophils # (Auto) 3.2 K/uL 1.9-8.0 10/28/2015 10/28/2015 7:40am 7:53am Lymphocytes # (Auto) 1.8 K/uL 0.9-5.2 10/28/2015 10/28/2015 7:40am 7:53am Monocytes # (Auto) 0.5 K/uL 0.16-1.0 10/28/2015 10/28/2015 7:40am 7:53am Eosinophils # (Auto) 0.1 K/uL 0-0.8 10/28/2015 10/28/2015 7:40am 7:53am Basophils # (Auto) 0.1 K/uL 0-0.2 10/28/2015 10/28/2015 7:40am 7:53am Immature Granulocyte 0.03 K/uL 0-0.40 10/28/2015 10/28/2015 # (Auto) 7:40am 7:53am Nucleated Red Blood 0.00 K/uL 0.0-0.012 10/28/2015 10/28/2015 Cells # 7:40am 7:53am Urine Color YELLOW 10/28/2015 10/28/2015 8:10am 8:25am Urine Appearance SL CLOUDY 10/28/2015 10/28/2015 8:10am 8:25am Urine Glucose (UA) TRACE NEGATIVE 10/28/2015 10/28/2015 8:10am 8:25am Urine Bilirubin NEGATIVE NEGATIVE 10/28/2015 10/28/2015 8:10am 8:25am Urine Ketones TRACE NEGATIVE 10/28/2015 10/28/2015 8:10am 8:25am Urine Specific >=1.03 1.005-1.03 10/28/2015 10/28/2015 [place] 0 0 8:10am 8:25am Urine Occult Blood [...] Amorphous 2+ 10/28/2015 10/28/2015 Sediment 8:10am 8:26am Random Glucose 233 mg/dL H 65-115 10/28/2015 10/28/2015 7:40am 8:06am Bedside Glucose 238 mg/dL H 70-120 10/28/2015 10/28/2015 4:07pm 4:10pm Blood Urea Nitrogen 14 mg/dL 8-25 10/28/2015 10/28/2015 7:40am 8:06am Creatinine 0.91 mg/dL 0.9-1.6 10/28/2015 10/28/2015 7:40am 8:06am Glomerular Filtration 83.88 mL/min 10/28/2015 10/28/2015 MULTIPLY RESULT BY 1.210 IF THE PATIENT IS -AZERBAIJANI
Rate Calc 7:40am 8:06am Units are mL/min/1.73 m2

> 60 Normal kidney function
30-59 Moderately decreased kidney function
15-29 Severely decreased kidney function
<15 End-stage kidney failure
BUN/Creatinine Ratio 15.4 10/28/2015 10/28/2015 7:40am 8:06am Sodium Level 131 mEq/L L 133-145 10/28/2015 10/28/2015 7:40am 8:06am Potassium Level 3.9 mEq/L 3.5-5.1 10/28/2015 10/28/2015 7:40am 8:06am Chloride Level 106 mEq/L 98-116 10/28/2015 10/28/2015 7:40am 8:06am Carbon Dioxide Level 20 mEq/L L 22-34 10/28/2015 10/28/2015 7:40am 8:06am Anion Gap 8.9 6-13 10/28/2015 10/28/2015 7:40am 8:06am Calcium Level 8.4 mg/dL 8.2-10.6 10/28/2015 10/28/2015 7:40am 8:06am Total Protein 7.0 gm/dL 6.0-8.4 10/28/2015 10/28/2015 7:40am 8:06am Albumin 3.7 gm/dL 3.2-5.0 10/28/2015 10/28/2015 7:40am 8:06am Globulin 3.3 gm/dL H 2.0-3.0 10/28/2015 10/28/2015 7:40am 8:06am Albumin/Globulin 1.1 L 1.4-2.4 10/28/2015 10/28/2015 Ratio 7:40am 8:06am Total Bilirubin 1.4 mg/dL H 0.1-1.3 10/28/2015 10/28/2015 7:40am 8:06am Alkaline Phosphatase 80 U/L 35-125 10/28/2015 10/28/2015 7:40am 8:06am Aspartate Amino 41 U/L H 5-40 10/28/2015 10/28/2015 Transf (AST/SGOT) 7:40am 8:06am Alanine 54 U/L H 5-40 10/28/2015 10/28/2015 Aminotransferase 7:40am 8:06am (ALT/SGPT) Troponin I 0.01 ng/mL 0.0-0.02 10/28/2015 10/28/2015 7:40am 8:09am Acetaminophen Level 1.1 ug/mL 10/28/2015 10/28/2015 Therapeutic Levels in serum/plasma 10-30 ug/ml
7:40am 8:06am Toxic Levels:
4 hrs post ingestion >150 ug/ml
8 hrs post ingestion >75 ug/ml
12 hrs post ingestion >40 ug/ml Salicylates Level < 4.0 mg/dl 10/28/2015 10/28/2015 NORMAL LEVELS=& lt; 4 mg/dL
7:40am 8:06am THERAPEUTIC LEVEL=< 20 mg/dL
TOXIC LEVEL=> 30 mg/dL
LETHAL LEVEL=> 60 mg/dL
Ethyl Alcohol Level 8.9 mg/dl 0-10 10/28/2015 10/28/2015 A level 7:40am 8:06am below 10 mg/dl should be considered negative. Urine Amphetamines Negative NEGATIVE 10/28/2015 10/28/2015 Screen 8:10am 8:17am Urine Negative NEGATIVE 10/28/2015 10/28/2015 Methamphetamines 8:10am 8:17am Screen Urine Barbiturates Negative NEGATIVE 10/28/2015 10/28/2015 Screen 8:10am 8:17am Urine Benzodiazepines POSITIVE NEGATIVE 10/28/2015 10/28/2015 Screen 8:10am 8:17am Urine Cocaine Screen Negative NEGATIVE 10/28/2015 10/28/2015 8:10am 8:17am Urine Methadone Negative NEGATIVE 10/28/2015 10/28/2015 Screen 8:10am 8:17am Urine Opiates Screen Negative NEGATIVE 10/28/2015 10/28/2015 8:10am 8:17am Urine Phencyclidine Negative NEGATIVE 10/28/2015 10/28/2015 Screen 8:10am 8:17am Urine Propoxyphene Negative NEGATIVE 10/28/2015 10/28/2015 Screen 8:10am 8:17am Ur Negative NEGATIVE 10/28/2015 10/28/2015 Tetrahydrocannabinol 8:10am 8:17am (THC) Scrn Ur Tricyclic Negative NEGATIVE 10/28/2015 10/28/2015 Antidepressants 8:10am 8:17am Screen Procedures Procedure Status Date Provider(s) THER/PROPH/DIAG INJ SC/IM Completed 12/27/13 ASHLEY EARL M.D. DIAGNOSTIC COLONOSCOPY Completed 08/17/14 REMBERTO THOMAS M.D. THER/PROPH/DIAG INJ IV PUSH Completed 04/14/15 YA THOMAS M.D. HYDRATE IV INFUSION ADD-ON Completed 04/14/15 YA THOMAS M.D. THER/PROPH/DIAG INJ SC/IM Completed 10/21/15 MARCUS MAN M.D. Encounters Encounter Location Arrival/Admit Date Discharge/Depart Date Attending Provider Departed Trina Torres 10/28/15 6:57am 10/28/15 7:35pm DONOVAN Emergency Room [facility] MARCUS Carter Registered Trina Torres 10/23/15 7:03am NIGHTMARIALE, Referred [facility] SHER Beckham M.D. Departed Trina Torres 10/21/15 9:57pm 10/21/15 11:04pm MAN, Emergency Room [facility] MARCUS Carter Departed Trina Torres 10/02/15 2:22pm 10/02/15 4:50pm MAN, Emergency Room [facility]. [facility] MARCUS Carter Registered Trina Torres 09/27/15 11:23am [place], Referred Mem. [facility] SHER Beckham M.D. Registered Trina Torres 09/14/15 2:55pm [place], Referred Mem. [facility] SHER Beckham M.D. Departed Trina Torres 06/11/15 4:32pm 06/11/15 10:14pm MAN, Emergency Room [facility]. [facility] MARCUS Carter Departed Trina Torres 04/14/15 6:02am 04/14/15 7:30am YA THOMAS Emergency Room [facility]. [facility] Vinicius Carter Departed Trina Torres 08/17/14 9:03am 08/17/14 11:45am REMBERTO THOMAS Surgical Day [facility]. Bhavani Small M.D. Care Office Visit REMBERTO THOMAS 08/02/14 2:45pm REMBERTO THOMAS M.D. Registered Remberto Thomas 08/02/14 2:39pm REMBERTO THOMAS M.D. Registered Trina Torres 04/20/14 4:36pm MISAEL MATOS Referred [facility] 02/23/14 10:52am ANTOINETTE DURAN Referred Mem. [facility] Raul Departed Trina Torres 01/03/14 1:50pm 01/03/14 4:09pm YA THOMAS Emergency Room [facility]. [facility] Vinicius Carter Departed Trina Torres 12/27/13 4:11pm 12/27/13 6:19pm DONOVAN, Emergency Room [facility]. [facility] MARCUS Carter Departed Trina Torres 12/23/13 12:18am 12/23/13 1:11am SHAISTA, Emergency Room [facility]. [facility] EDYTA Craft M.D. Registered Trina Torres 12/16/13 1:42pm ANTOINETTE DURAN Referred [facility] Torres 12/09/13 8:33am 10/30/14 11:56am ANTOINETTE DURAN [facility] MAxel Office Visit NANO Sharma 10/21/13 1:15pm RUKHSANA MILIAN MD Registered Nano Sharma 10/21/13 1:15pm Frances MILIAN MD Departed Trina Torres 04/30/13 8:13pm 04/30/13 9:31pm [facility]
--- OUTSIDE RECORDS SUMMARY | 2017-07-10 18:58 | External Medical Summary | Continuity of Care Document ---
:1950 Author Organization Trina Torres [facility] Phone Unavailable Care Team Providers Name Role Phone SHER CHRISTINA M.D. Primary Care Physician Insurance Providers Guarantor Bravo Ortiz Address [address] [place] [address] Payer s Medicare Policy Number [id number] Subscriber's Name Bravo Ortiz Parvin Relationship 01 Self / Same As Patient Effective Date 10 Chief Complaint and Reason for Visit Chief Complaint Constipation Reason for Visit Weakness Abdominal pain Problems Active Problems Medical Problem Onset Date [...] 05/13/2011 Chronic 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 Past Problems Medical Problem Onset Date Abdominal pain Unknown Weakness Unknown Medications Current Home Medications Medication Dose Units Route Directions Days Qty Instructions Start Date Alprazolam 1 Mg 1 Mg Oral Q4hr 05/01/16 Tab Aspirin 81 Mg Oral Daily 06/11/15 (Aspir-81) [...] Home Medications Medication Directions Ordered Status Alprazolam 2 Mg Tab, 1 Tab Oral [...] Applicable Not Applicable Smoking Status Former smoker 10/02/2015 2:29pm Not Applicable Not Applicable Query Response Start Date Stop Date Smoking Status Former smoker Hospital Discharge Instructions No hospital discharge instructions. Plan of Care Discharge Date 10/02/15 4:50pm Disposition 01 HOME, SELF-CARE Condition at Discharge Stable Instructions/Education Provided Abdominal Pain (ED) Prescriptions See Medication Section Referrals SHER CHRISTINA M.D. Address: [address] [place], [place] [id number] Additional Instructions/Education Follow up with your regular doctor to further evaluate for any liver issues. You have gall stones but there does not appear to be any signs of inflammation around it to suggest acute inflammation. No signs of constipation. Continue with current medications. Follow up with Dr. Duran to further evaluate your shortness of breath.
Functional Status No functional status results. Allergies, Adverse Reactions, Alerts No known allergies. 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 Reason Number Influenza 11/16/10 Administered 1 [id number] SANOFI PASTEUR Vaccine, Inactivated Influenza 12/13/11 Administered 2 [id number] Sanofi Pasteur Vaccine, Inactivated Vital Signs Acute Vital Signs Vital Response Date/Time Blood Pressure 168/82 mm Hg 10/02/2015 4:34pm Blood Pressure Mean 61 mm Hg 08/17/2014 11:10am Blood Pressure Mean 110 mm Hg 10/02/2015 4:34pm Temperature (Fahrenheit) 97.7 degrees F (96.0 - 99.9) 10/02/2015 2:24pm Temperature (Calculated Celsius) 36.20648 degrees C 10/02/2015 2:24pm Temperature Source Oral 08/17/2014 11:14am Temperature Source Oral 10/02/2015 2:24pm Temp 97.0 degrees F (96.0 - 99.9) 08/17/2014 11:08am Temperature (Calculated Celsius) 36.84351 degrees C 08/17/2014 11:08am Pulse Pulse Rate (adult) 74 bpm (60 - 100) 06/11/2015 4:50pm Pulse Rate (adult) 59 bpm (60 - 100) 08/17/2014 11:10am Pulse Rate: ED 70 bpm 10/02/2015 4:34pm Respiratory Rate 19 breaths per minute (10 - 20) 10/02/2015 4:34pm Respiratory Rate 16 bpm (10 - 20) 08/17/2014 11:10am Height (Feet) 5 ft 10/02/2015 2:24pm Height (Inches) 11.0 in. 10/02/2015 2:24pm Weight (Pounds) 280.0 lbs 10/02/2015 2:24pm Height 5 ft 11 in 10/02/2015 2:24pm Weight 280 lb 10/02/2015 2:24pm Body Mass Index 39.1 kg/m^2 10/02/2015 2:24pm Ambulatory Vital Signs Vital Response Date/Time Height [...] 3:23pm Urine Specific >=1.030 1.005-1.030 10/02/2015 10/02/2015 [place] 3:00pm 3:23pm Urine Occult Blood TRACE-INTA NEGATIVE [...] RESULT BY 1.210 IF THE PATIENT IS -PARAGUAYAN
Filtration Rate 2:57pm 3:18pm Units are mL/min/1.73 [...] EARL M.D. DIAGNOSTIC COLONOSCOPY Completed 08/17/14 REMBERTO PINEDA M.D. THER/PROPH/DIAG INJ IV PUSH Completed 04/14/15 YA THOMAS M.D. HYDRATE IV INFUSION ADD-ON Completed 04/14/15 YA THOMAS M.D. Encounters Encounter Location Arrival/Admit Date Discharge/Depart Date Attending Provider Departed Trina Torres 10/02/15 2:22pm 10/02/15 4:50pm DONOVAN, Emergency Room [facility]. Bhavani VELAZQUEZ M.D. Registered Trina Torres 09/27/15 11:[facility]am [facility]. Bhavani Beckham M.D. Registered Trina Torres 09/14/15 2:55pm [place], Referred [facility]. Bhavani Beckham M.D. Departed Trina Torres 06/11/15 4:32pm 06/11/15 10:14pm DONOVAN Emergency Room [facility] Bhavani VELAZQUEZ M.D. Departed Trina Torres 04/14/15 6:02am 04/14/15 7:30am YA THOMAS [facility] [place] [facility] Bhavani Colvin M.D. Departed Trina Torres 08/17/14 9:03am 08/17/14 11:45am REMBERTO PINEDA Surgical Day [facility] Care Office Visit REMBERTO PINEDA 08/02/14 2:45pm REMBERTO PINEDA M.D. Registered Remberto Pineda 08/02/14 2:39pm REMBERTO PINEDA M.D. Registered Trina Torres 04/20/14 4:36pm [facility]EL [facility] 02/23/14 10:52am ANTOINETTE DURAN Referred Mem. [facility] Departed Trina Torres 01/03/14 1:50pm 01/03/14 4:09pm YA THOMAS Emergency Room [facility]. Hospital Vinicius Carter Departed Trina Torres 12/27/13 4:11pm 12/27/13 6:19pm DONOVAN Emergency Room [facility]. Hospital MARCUS Carter Departed Trina Torres 12/23/13 12:18am 12/23/13 1:11am SHAISTA Emergency Room [facility]. [facility] EDYTA Craft M.D. Registered Trina Torres 12/16/13 1:42pm ANTOINETTE DURAN Referred [facility]. [facility] Raul Departed Clinic Trina Torres 12/09/13 8:33am 12/09/13 11:56am ANTOINETTE DURAN [facility] NANO Sharma 10/21/13 1:15pm RUKHSANA MILIAN MD Registered Nano Sharma 10/21/13 1:15pm Frances MILIAN MD Departed Trina Torres 04/30/13 8:13pm 04/30/13 9:31pm CLARY NGUYEN Emergency Room [facility]. [facility] Raul Recent Diagnosis
[2017-07-10] MEDS ORDERED: NS 1,000 ML IV ONE (18:59)
--- OUTSIDE RECORDS SUMMARY | 2017-07-10 18:59 | External Medical Summary | Continuity of Care Document ---
:1950 Author Organization Trina Torres [facility] Phone Unavailable Care Team Providers Name Role Phone SHER CHRISTINA M.D. Primary Care Physician Insurance Providers Guarantor Bravo Ortiz Address [address] [place] [address] Payer s Medicare Policy Number [id number] Subscriber's Name Bravo Ortiz Relationship 01 Self / Same As Patient Effective Date 10 Chief Complaint and Reason for Visit Chief Complaint Medical Problem Minor Reason for Visit [id number] Anxiety [id number] Problems Active Problems Medical Problem Onset Date [...] dyspnea Unknown Acute Gall stones Unknown Acute Hyperlipidemia 02/26/2011 Chronic Hypertension Unknown [...] Applicable Not Applicable Smoking Status Former smoker 10/30/2015 3:26pm Not Applicable Not Applicable Query Response Start Date Stop Date Smoking Status Former smoker Hospital Discharge Instructions No hospital discharge instructions. Plan of Care Discharge Date 10/30/15 9:52pm Disposition 02 XFER [facility]M HOSP (ACUTE) Condition at Discharge Stable Instructions/Education Provided Narcotic Abuse (ED) Prescriptions See Medication Section Referrals SHER CHRISTINA M.D. Address: [address] [place] [id number] Additional Instructions/Education Go directly to [facility]. Functional Status No functional status results. Allergies, Adverse Reactions, Alerts No known allergies. 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 Influenza 11/16/10 Administered 1 [id number] SANO[employer]UR Vaccine, Inactivated Influenza 12/13/11 Administered 2 [id number] San[employer]i Pasteur Vaccine, Inactivated Vital Signs Acute Vital Signs Vital Response Date/Time Blood Pressure 139/87 mm Hg 10/30/2015 9:32pm Blood Pressure Mean 61 mm Hg 08/17/2014 11:10am Blood Pressure Mean 104 mm Hg 10/30/2015 9:32pm Temperature (Fahrenheit) 98.1 degrees F (96.0 - 99.9) 10/30/2015 3:27pm Temperature (Calculated Celsius) 36.60267 degrees C 10/30/2015 3:27pm Temperature Source Oral 08/17/2014 11:14am Temperature Source Oral 10/30/2015 3:27pm Temp 97.0 degrees F (96.0 - 99.9) 08/17/2014 11:08am Temperature (Calculated Celsius) 36.77797 degrees C 08/17/2014 11:08am Pulse Pulse Rate (adult) 110 bpm (60 - 100) 10/28/2015 6:59am Pulse Rate (adult) 59 bpm (60 - 100) 08/17/2014 11:10am Pulse Rate: ED 108 bpm 10/30/2015 9:32pm Respiratory Rate 16 breaths per minute (10 - 20) 10/30/2015 8:37pm Respiratory Rate 16 bpm (10 - 20) 08/17/2014 11:10am Height (Feet) 5 ft 10/30/2015 3:27pm Height (Inches) 11.0 in. 10/30/2015 3:27pm Weight (Pounds) 280.0 lbs 10/30/2015 3:27pm Height 5 ft 11 in 10/30/2015 3:27pm Weight 280 lb 10/30/2015 3:27pm Body Mass Index 39.1 kg/m^2 10/30/2015 3:27pm Ambulatory Vital Signs Vital Response Date/Time Height [...] 8:25am Urine Specific >=1.03 1.005-1.03 10/28/2015 10/28/2015 [place] 0 0 8:10am 8:25am Urine Occult Blood [...] Amorphous 2+ 10/28/2015 10/28/2015 Sediment 8:10am 8:26am White Blood Count 11.8 K/uL H 5.0-10.0 10/30/2015 10/30/2015 3:49pm 3:54pm Red Blood Count 5.42 M/uL H 4.60-5.40 10/30/2015 10/30/2015 3:49pm 3:54pm Hemoglobin 17.2 g/dL 14.0-18.0 10/30/2015 10/30/2015 3:49pm 3:54pm Hematocrit 47.8 % 40.0-54.0 10/30/2015 10/30/2015 3:49pm 3:54pm Mean Corpuscular 88.2 fL 80.0-94.0 10/30/2015 10/30/2015 Volume 3:49pm 3:54pm Mean Corpuscular 31.7 pg 26.0-33.0 10/30/2015 10/30/2015 Hemoglobin 3:49pm 3:54pm Mean Corpuscular 36.0 g/dL 31.0-36.0 10/30/2015 10/30/2015 Hemoglobin Concent 3:49pm 3:54pm Red Cell Distribution 12.8 % 11.5-14.5 10/30/2015 10/30/2015 Width 3:49pm 3:54pm RDW Standard 41.1 fL 35.1-43.9 10/30/2015 10/30/2015 Deviation 3:49pm 3:54pm Platelet Count 159 K/uL 130-400 10/30/2015 10/30/2015 3:49pm 3:54pm Mean Platelet Volume 8.1 fL 7.0-11.0 10/30/2015 10/30/2015 3:49pm 3:54pm Neutrophils (%) 82.4 % H 42.0-75.0 10/30/2015 10/30/2015 (Auto) 3:49pm 3:54pm Lymphocytes (%) 9.6 % L 16.0-44.0 10/30/2015 10/30/2015 (Auto) 3:49pm 3:54pm Monocytes (%) (Auto) 7.1 % 2.0-9.0 10/30/2015 10/30/2015 3:49pm 3:54pm Eosinophils (%) 0.2 % 0-7.0 10/30/2015 10/30/2015 (Auto) 3:49pm 3:54pm Basophils (%) (Auto) 0.4 % 0-1 10/30/2015 10/30/2015 3:49pm 3:54pm Immature Granulocyte 0.3 % 0-0.5 10/30/2015 10/30/2015 % (Auto) 3:49pm 3:54pm Nucleated Red Blood 0.0 /100WB 0-0 10/30/2015 10/30/2015 Cells % C 3:49pm 3:54pm Neutrophils # (Auto) 9.7 K/uL H 1.9-8.0 10/30/2015 10/30/2015 3:49pm 3:54pm Lymphocytes # (Auto) 1.1 K/uL 0.9-5.2 10/30/2015 10/30/2015 3:49pm 3:54pm Monocytes # (Auto) 0.8 K/uL 0.16-1.0 10/30/2015 10/30/2015 3:49pm 3:54pm Eosinophils # (Auto) 0.0 K/uL 0-0.8 10/30/2015 10/30/2015 3:49pm 3:54pm Basophils # (Auto) 0.1 K/uL 0-0.2 10/30/2015 10/30/2015 3:49pm 3:54pm Immature Granulocyte 0.04 K/uL 0-0.40 10/30/2015 10/30/2015 # (Auto) 3:49pm 3:54pm Nucleated Red Blood 0.00 K/uL 0.0-0.012 10/30/2015 10/30/2015 Cells # 3:49pm 3:54pm Random Glucose 342 mg/dL H 65-115 10/30/2015 10/30/2015 3:49pm 5:08pm Bedside Glucose 253 mg/dL H 70-120 10/30/2015 10/30/2015 7:37pm 7:39pm Blood Urea Nitrogen 11 mg/dL 8-25 10/30/2015 10/30/2015 3:49pm 5:08pm Creatinine 0.96 mg/dL 0.9-1.6 10/30/2015 10/30/2015 3:49pm 5:08pm Glomerular Filtration 78.86 mL/min 10/30/2015 10/30/2015 MULTIPLY RESULT BY 1.210 IF THE PATIENT IS -SCOTTISH
Rate Calc 3:49pm 5:07pm Units are mL/min/1.73 m2

> 60 Normal kidney function
30-59 Moderately decreased kidney function
15-29 Severely decreased kidney function
<15 End-stage kidney failure
BUN/Creatinine Ratio 11.5 10/30/2015 10/30/2015 3:49pm 5:08pm Sodium Level 132 mEq/L L 133-145 10/30/2015 10/30/2015 3:49pm 5:08pm Potassium Level 4.7 mEq/L # 3.5-5.1 10/30/2015 10/30/2015 3:49pm 5:08pm Chloride Level 103 mEq/L 98-116 10/30/2015 10/30/2015 3:49pm 5:08pm Carbon Dioxide Level 20 mEq/L L 22-34 10/30/2015 10/30/2015 3:49pm 5:08pm Anion Gap 13.7 H 6-13 10/30/2015 10/30/2015 3:49pm 5:08pm Calcium Level 8.5 mg/dL 8.2-10.6 10/30/2015 10/30/2015 3:49pm 5:08pm Total Protein 6.7 gm/dL 6.0-8.4 10/30/2015 10/30/2015 3:49pm 5:08pm Albumin 3.6 gm/dL 3.2-5.0 10/30/2015 10/30/2015 3:49pm 5:08pm Globulin 3.1 gm/dL H 2.0-3.0 10/30/2015 10/30/2015 3:49pm 5:08pm Albumin/Globulin 1.2 L 1.4-2.4 10/30/2015 10/30/2015 Ratio 3:49pm 5:08pm Total Bilirubin 1.7 mg/dL H 0.1-1.3 10/30/2015 10/30/2015 3:49pm 5:08pm Alkaline Phosphatase 67 U/L 35-125 10/30/2015 10/30/2015 3:49pm 5:08pm Aspartate Amino 40 U/L 5-40 10/30/2015 10/30/2015 Transf (AST/SGOT) 3:49pm 5:08pm Alanine 50 U/L H 5-40 10/30/2015 10/30/2015 Aminotransferase 3:49pm 5:08pm (ALT/SGPT) Troponin I 0.01 ng/mL 0.0-0.02 10/30/2015 10/30/2015 3:49pm 4:39pm Acetaminophen Level 1.3 ug/mL 10/30/2015 10/30/2015 Therapeutic Levels in serum/plasma 10-30 ug/ml
3:49pm 5:08pm Toxic Levels:
4 hrs post ingestion >150 ug/ml
8 hrs post ingestion >75 ug/ml
12 hrs post ingestion >40 ug/ml Salicylates Level < 4.0 mg/dl 10/30/2015 10/30/2015 NORMAL LEVELS=& lt; 4 mg/dL
3:49pm 5:08pm THERAPEUTIC LEVEL=< 20 mg/dL
TOXIC LEVEL=> 30 mg/dL
LETHAL LEVEL=> 60 mg/dL
Ethyl Alcohol Level 9.3 mg/dl 0-10 10/30/2015 10/30/2015 A level 3:49pm 5:08pm below 10 mg/dl should be considered negative. Urine Amphetamines Negative NEGATIVE 10/30/2015 10/30/2015 Screen 4:00pm 4:09pm Urine Negative NEGATIVE 10/30/2015 10/30/2015 Methamphetamines 4:00pm 4:09pm Screen Urine Barbiturates Negative NEGATIVE 10/30/2015 10/30/2015 Screen 4:00pm 4:09pm Urine Benzodiazepines POSITIVE NEGATIVE 10/30/2015 10/30/2015 RESULT Screen 4:00pm 4:14pm VERIFIED AND CALLED TO /[facility] AT 1613 BY [id number]. Urine Cocaine Screen Negative NEGATIVE 10/30/2015 10/30/2015 4:00pm 4:09pm Urine Methadone Negative NEGATIVE 10/30/2015 10/30/2015 Screen 4:00pm 4:09pm Urine Opiates Screen Negative NEGATIVE 10/30/2015 10/30/2015 4:00pm 4:09pm Urine Phencyclidine Negative NEGATIVE 10/30/2015 10/30/2015 Screen 4:00pm 4:09pm Urine Propoxyphene Negative NEGATIVE 10/30/2015 10/30/2015 Screen 4:00pm 4:09pm Ur Negative NEGATIVE 10/30/2015 10/30/2015 Tetrahydrocannabinol 4:00pm 4:09pm (THC) Scrn Ur Tricyclic Negative NEGATIVE 10/30/2015 10/30/2015 Antidepressants 4:00pm 4:09pm Screen Procedures Procedure Status Date Provider(s) THER/PROPH/DIAG [...] MARCUS MAN M.D. 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 HYDRATE IV INFUSION ADD-ON Completed 10/28/15 MARCUS MAN M.D. Encounters Encounter Location Arrival/Admit Date Discharge/Depart Date Attending Provider Departed Trina Torres 10/30/15 3:25pm 10/30/15 9:52pm DONOVAN, Emergency Room [facility]. hBavani VELAZQUEZ M.D. Departed Trina Torres 10/28/15 6:57am 10/28/15 7:35pm DONOVAN Emergency Room [facility]. Bhavani VELAZQUEZ M.D. Registered Trina Torres 10/23/15 7:03am NIGHTENGALICE, Referred Mem. Bhavani Beckham M.D. Departed Trina Torres 10/21/15 9:57pm 10/21/15 11:04pm MAN Emergency Room [facility]. Bhavani VELAZQUEZ M.D. Departed Trina Torres 10/02/15 2:22pm 10/02/15 4:50pm MAN, Emergency Room [facility]. Bhavani VELAZQUEZ M.D. Registered Trina Torres 09/27/15 11:23am NIGHTENGALE, Referred Mem. Bhavani Beckham M.D. Registered Trina Torres 09/14/15 2:55pm NIGHTENGALE, Referred Mem. Bhavani Beckham M.D. Departed Trina Torres 06/11/15 4:32pm 06/11/15 10:14pm MAN, Emergency Room [facility]. Bhavani VELAZQUEZ M.D. Departed Trina Torres 04/14/15 6:02am 04/14/15 7:30am YA THOMAS Emergency Room [facility]. [facility] Vinicius Carter Departed Trina Torres 08/17/14 9:03am 08/17/14 11:45am REMBERTO PINEDA Surgical Day [facility]. Bhavani Small M.D. Care Office Visit REMBERTO PINEDA 08/02/14 2:45pm REMBERTO PINEDA M.D. Registered Remberto Pineda 08/02/14 2:39pm REMBERTO PINEDA M.D. Registered Trina Torres 04/20/14 4:36pm MISAEL MATOS Referred Mem. Hospital [facility] Registered Trina Torres 02/23/14 10:52am ANTOINETTE DURAN Referred Mem. Hospital [facility] Departed Trina Torres 01/03/14 1:50pm 01/03/14 4:09pm YA THOMAS Emergency Room Mem. Hospital Vinicius Carter Departed Trina Torres 12/27/13 4:11pm 12/27/13 6:19pm DONOVAN Emergency Room Mem. Hospital MARCUS Carter Departed Trina Torres 12/23/13 12:18am 12/23/13 1:11am SHAISTA Emergency Room [facility]. Hospital EDYTA Craft M.D. Registered Trina Torres 12/16/13 1:42pm ANTOINETTE DURAN Referred Mem. Hospital Raul Departed Clinic Trina Torres 12/09/13 8:33am 12/09/13 11:56am [facility] 10/21/13 1:15pm RUKHSANA MILIAN MD Registered Nano Sharma 10/21/13 1:15pm Frances MILIAN MD Departed Trina Torres 04/30/13 8:13pm 04/30/13 9:31pm CLARY NGUYEN Emergency Room [facility]. [facility] Raul Recent Diagnosis
--- OUTSIDE RECORDS SUMMARY | 2017-07-10 18:59 | External Medical Summary | Continuity of Care Document ---
:1950 Author Organization [facility] Allergies Active Description Code Type Severity Reaction Onset Reported/ Identified Relationship Clinical to Patient Status Yes NKDA N/A N/A Yes No Known 43855 Misce Moderate N/A Allergies 999 llane ous Aller gy Yes No Known NKMA N/A N/A 05/13/2016 Medication Allergies Medications Medication Packaging Start Stop Route Dosage Sig Date Date TAB 1 MG LORAZEPAM 6 (ATIVAN) TAB : 1MG UD 1 mL IV Push 0.4 mg 0.4 nalOXone(Narcan) 7 017 mg=1 mL, IV Push, Once 0.5 mL IV Push 1 mg 1 morphine(morphin 7 017 mg=0.5 mL, IV e) Push, q2hr, PRN: Pain Severe (7-10) 1 tabs Oral 4 mg 4 ondansetron(Zofr 7 017 mg=1 tabs, an) Oral, q6hr, PRN: Nausea Oral 1 mg 1 ALPRAZolam(ALPRA 7 017 mg, Oral, Zolam) 6x/Day, x30 days; started 05/01/16 1 tabs Oral 75 mg 75 venlafaxine(venl 7 mg=1 tabs, afaxine 75 mg Oral, Daily oral tablet, extended release) Oral 500 mg 500 metFORMIN(metFOR 7 mg, Oral, Daily MIN) Oral 10 mg 10 lisinopril(lisin 7 mg, Oral, Daily opril) SubCutaneous 25 units 25 insulin 7 units, glargine(Lantus SubCutaneous, 100 units/mL Daily subcutaneous solution) Oral 20 mg 20 simvastatin(simv 7 mg, Oral, astatin) Bedtime (once a day) 1 tabs Oral 1 docusate-senna(S 7 017 tabs, Oral, BID enexon-S 50 mg-8.6 mg oral tablet) Oral 100 mg 100 traZODone(traZOD 7 mg, Oral, one) Bedtime (once a day) Oral 0.1 mg 0.1 cloNIDine(cloNID 7 mg, Oral, BID ine) Oral 81 mg 81 aspirin(aspirin) 7 mg, Oral, Daily 2 tabs Oral 1,000 mg acetaminophen(Ty 7 017 1,000 mg=2 lenol range tabs, Oral, dose) q6hr, PRN: Pain Mild (1-3) 1 tabs Oral 800 mg 800 ibuprofen(ibupro 7 017 mg=1 tabs, fen) Oral, TID 1 tabs Oral 800 mg 800 ibuprofen(ibupro 7 017 mg=1 tabs, fen) Oral, TID, PRN: Pain Moderate (4-6) 1 mL IntraMuscular 1 mg 1 glucagon(glucago 7 017 mg=1 mL, n) IntraMuscular, As Indicated, PRN: Hypoglycemia/Lo w Blood Sugar 25 mL IV Push 12.5 g Dextrose 50% 7 017 12.5 g=25 mL, in IV Push, Water(Dextrose q15min, PRN: 50% in Water Hypoglycemia/Lo Injection) w Blood Sugar 2 tabs Oral 40 mEq 40 potassium 7 017 mEq=2 tabs, chloride(potassi Oral, Once um chloride 20 mEq oral tablet, extended release) 1 packets Oral 17 g 17 polyethylene 7 017 g=1 packets, glycol Oral, Daily, 3350(MiraLax) PRN: Constipation 2 tabs Oral 75 mg 75 venlafaxine(venl 7 017 mg=2 tabs, afaxine) Oral, Daily 2 tabs Oral 100 mg 100 traZODone(traZOD 7 017 mg=2 tabs, one) Oral, Bedtime (once a day), PRN: Insomnia 1 tabs Oral 81 mg 81 aspirin(aspirin) 7 017 mg=1 tabs, Oral, Daily 1 tabs Oral 25 mg 25 metoprolol(metop 7 017 mg=1 tabs, rolol tartrate Oral, BID 25 mg oral tablet) 1 tabs Oral 500 mg 500 metFORMIN(metFOR 7 017 mg=1 tabs, MIN) Oral, Daily 1 tabs Oral 10 mg 10 lisinopril(lisin 7 017 mg=1 tabs, opril) Oral, Daily 1 tabs Oral 0.1 mg 0.1 cloNIDine(cloNID 7 017 mg=1 tabs, ine) Oral, BID Oral VENLAFAXINE HCL 7 018 ER Subcutaneous LANTUS SOLOSTAR 7 018 ORAL ORAL 60 XIFAXAN 7 twice daily ORAL q 4 ALPRAZOLAM 8 hours Oral VENLAFAXINE HCL 8 ER Subcutaneous LANTUS SOLOSTAR 8 Problems Date Dx Attending Type Code Diagnosis Diagnosed By Coded 11/05/2013 414.01 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 06/11/2015 F F32.9 Major depressive Dottie Stewart disorder, single J episode, unspecified 06/13/2015 F F32.9 Major depressive Julia, disorder, single Suzanah episode, unspecified 10/28/2015 F E11.9 Type 2 diabetes Lanny Gutierrez mellitus without M complications 10/28/2015 F E11.9 Type 2 diabetes Julia, mellitus without Suzanah complications 10/28/2015 F F11.20 Opioid dependence, Julia, uncomplicated Suzanah 10/28/2015 F F41.1 Generalized anxiety Julia, disorder Suzanah 10/30/2015 F F32.1 Major depressive Julia, disorder, single Suzanah episode, moderate 10/30/2015 F F11.20 Opioid dependence, Lanny Gutierrez uncomplicated M 10/30/2015 F F32.1 Major depressive Lanny Gutierrez disorder, single M episode, moderate 10/30/2015 F F41.1 Generalized anxiety Lanny Gutierrez disorder M 10/30/2015 F Z63.8 Other specified Lanny Gutierrez problems related to M primary support group 10/30/2015 F Z65.8 Other specified Lanny Gutierrez problems related to M psychosocial circumstances 03/05/2016 ALYSSA, G89.29 OTHER CHRONIC PAIN ASIF 04/11/2016 ALYSSA, G89.29 OTHER CHRONIC PAIN ASIF 05/13/2016 Henao,, Lay Admitting T14.91 06/05/2016 Henao,, Lay Final B19.20 Unspecified viral hepatitis C without hepatic coma 06/05/2016 Henao,, Lay Final D69.6 Thrombocytopenia, unspecified 06/05/2016 Henao,, Lay Final E11.9 Type 2 diabetes mellitus without complications 06/05/2016 Henao,, Lay Final E66.01 Morbid (severe) obesity due to excess calories 06/05/2016 Henao,, Lay Final E87.0 Hyperosmolality and hypernatremia 06/05/2016 Henao,, Lay Final E87.6 Hypokalemia 06/05/2016 Henao,, Lay Final F10.21 Alcohol dependence, in remission 06/05/2016 Henao,, Lay Final F32.9 Major depressive disorder, single episode, unspecified 06/05/2016 Henao,, Lay Final I78.1 Nevus, non-neoplastic 06/05/2016 Henao,, Lay Final I86.8 Varicose veins of other specified sites 06/05/2016 Henao,, Lay Final R40.2423 [place] coma scale score 9-12, at hospital admission 06/05/2016 Henao,, Lay Final S50.02XA Contusion of left elbow, initial encounter 06/05/2016 Henao,, Lay Final S50.312A Abrasion of left elbow, initial encounter 06/05/2016 Henao,, Lay Admitting T50.901A Poisoning by unspecified drugs, medicaments and biological substances, acci 06/05/2016 Henao,, Lay Final W19.XXXA Unspecified fall, initial encounter 06/05/2016 Henao Sheryl Final Y92.[address] in unspecified non-institutional (private) residence as t 06/05/2016 Henao Sheryl Final Z68.36 Body mass index (BMI) 36.0-36.9, adult 06/05/2016 Henao Sheryl Final T42.4X2A Poisoning by benzodiazepines, intentional self-harm, initial encounter 06/14/2016 Henao Sheryl Final Y92.[address] in unspecified non-institutional (private) residence as t 07/10/2016 ALYSSA, G89.29 OTHER CHRONIC PAIN ASIF 07/10/2016 ALYSSA, G89.29 OTHER CHRONIC PAIN ASIF 09/09/2016 ALYSSA, G89.29 OTHER CHRONIC PAIN ASIF 09/09/2016 ALYSSA, G89.29 OTHER CHRONIC PAIN ASIF 10/01/2016 ALYSSA, G89.29 OTHER CHRONIC PAIN ASIF 11/06/2016 ALYSSA, G89.29 OTHER CHRONIC PAIN ASIF 02/21/2017 F F11.20 Opioid dependence, Manolo, uncomplicated Stephie C 02/21/2017 F 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 HEPATITIS C 06/10/2017 CANDIDO Carter, Other D69.6 THROMBOCYTOPENIA, ESTEPHAN N. UNSPECIFIED Procedures Code Description Performed By Performed On H2011 Dottie Stewart 06/11/2015 [id number] Coronary Javan Solares 10/26/2015 artery bypass, using arterial graft(s); single arterial graft 44021 Initial Javan Solares 10/26/2015 inpatient consultation for a new or established patient, which requires three pickard components 51963 Coronary Javan Solares 10/27/2015 artery bypass, using arterial graft(s); single arterial graft 67112 Initial Javan Solares 10/27/2015 inpatient consultation for a new or established patient, which requires three pickard components H2011 Lanny Gutierrez 10/28/2015 H2011 Stephie Corona 02/21/2017 Evaluation - Televideo Results Test Result Range Salicylate - 05/13/16 14:08 Salicylate <4 mg/dL 0-30 Acetaminophen - 05/13/16 14:08 Acetaminophen <10 mcg/mL 10-30 Comprehensive Metabolic Panel (CMP) - 05/13/16 14:08 Albumin 3.6 g/dL 3.5-4.8 Alkaline Phosphatase 75 U/L 26-104 ALT (SGPT) 124 U/L 17-63 Anion Gap 12 NA 3-20 AST (SGOT) 87 U/L 15-41 Bilirubin Total 2.2 mg/dL 0.2-1.2 BUN 15 mg/dL 4-20 Calcium 9.0 mg/dL 8.6-10.0 Chloride 108 mEq/L 99-109 CO2 23 mEq/L 22-32 Creatinine 0.85 mg/dL 0.64-1.27 Globulin 2.9 g/dL 1.9-4.3 Glucose 82 mg/dL 70-100 Potassium 3.8 mEq/L 3.6-5.1 Protein 6.5 g/dL 6.1-7.9 Sodium 143 mEq/L 136-144 Alcohol, Blood - 05/13/16 14:08 Alcohol, Blood Not Detected mg/dL eGFR - 05/13/16 14:08 eGFR >60 NA >60 Glucose NPT - 05/13/16 14:58 Glucose NPT 81 mg/dL 70-100 Glucose NPT - 05/14/16 06:43 Glucose NPT 78 mg/dL 70-100 Glucose NPT - 05/14/16 07:45 Glucose NPT 115 mg/dL 70-100 Glucose NPT - 05/14/16 12:30 Glucose NPT 62 mg/dL 70-100 Glucose NPT - 05/14/16 12:58 Glucose NPT 124 mg/dL 70-100 Glucose NPT - 05/14/16 14:51 Glucose NPT 98 mg/dL 70-100 Glucose NPT - 05/14/16 18:45 Glucose NPT 56 mg/dL 70-100 Glucose NPT - 05/14/16 19:12 Glucose NPT 109 mg/dL 70-100 Glucose NPT - 05/14/16 21:17 Glucose NPT 129 mg/dL 70-100 Glucose NPT - 05/15/16 00:04 Glucose NPT 130 mg/dL 70-100 Renal Function Panel - 05/15/16 02:41 Albumin 3.2 g/dL 3.5-4.8 Anion Gap 9 NA 3-20 BUN 20 mg/dL 4-20 Calcium 8.6 mg/dL 8.6-10.0 Chloride 112 mEq/L 99-109 CO2 23 mEq/L 22-32 Creatinine 0.97 mg/dL 0.64-1.27 Glucose 121 mg/dL 70-100 Phosphorus 4.1 mg/dL 2.4-4.7 Potassium 3.3 mEq/L 3.6-5.1 Sodium 144 mEq/L 136-144 eGFR - 05/15/16 02:41 eGFR >60 NA >60 Glucose NPT - 05/15/16 05:03 Glucose NPT 90 mg/dL 70-100 Glucose NPT - 05/15/16 06:59 Glucose NPT 84 mg/dL 70-100 Glucose NPT - 05/15/16 12:25 Glucose NPT 137 mg/dL 70-100 Glucose NPT - 05/15/16 16:19 Glucose NPT 155 mg/dL 70-100 Glucose NPT - 05/15/16 20:45 Glucose NPT 218 mg/dL 70-100 eGFR - 05/16/16 04:09 eGFR >60 NA >60 Glucose NPT - 05/16/16 05:57 Glucose NPT 144 mg/dL 70-100 Glucose NPT - 05/16/16 10:28 Glucose NPT 129 mg/dL 70-100 Glucose NPT - 05/16/16 21:41 Glucose NPT 157 mg/dL 70-100 Glucose NPT - 05/17/16 06:19 Glucose NPT 138 mg/dL 70-100 Glucose NPT - 05/17/16 15:28 Glucose NPT 164 mg/dL 70-100 Glucose NPT - 05/17/16 19:59 Glucose NPT 179 mg/dL 70-100 Glucose NPT - 05/17/16 22:39 Glucose NPT 214 mg/dL 70-100 Glucose NPT - 05/18/16 06:16 Glucose NPT 169 mg/dL 70-100 Glucose NPT - 05/18/16 12:51 Glucose NPT 147 mg/dL 70-100 Glucose NPT - 05/18/16 18:10 Glucose NPT 142 mg/dL 70-100 Glucose NPT - 05/18/16 21:00 Glucose NPT 146 mg/dL 70-100 Glucose NPT - 05/19/16 06:14 Glucose NPT 154 mg/dL 70-100 Glucose NPT - 05/19/16 09:42 Glucose NPT 198 mg/dL 70-100 Glucose NPT - 05/19/16 15:57 Glucose NPT 126 mg/dL 70-100 Glucose NPT - 05/19/16 20:58 Glucose NPT 209 mg/dL 70-100 Glucose NPT - 05/20/16 06:01 Glucose NPT 150 mg/dL 70-100 Encounters ACCT No. Visit Discharge Status Pt. Type Provider Facility Loc./Unit Complaint Date/Time [id number] 11/01/2015 11/01/2015 CLS Outpatien 1 08:52:00 23:59:59 t [id number] 06/30/2017 06/30/2017 DIS Outpatien 11:12:01 11:12:01 t [id number] 05/13/2016 05/20/2016 DIS Inpatient Henao,, Via [facility] [id number] intentional [id number] 13:10:00 16:30:00 Lay Carter od, SA, [facility] Suicide Risk [id number] 05/21/2016 Document [id number] 05:17:30 Registrat ion [id number] 05/18/2016 Document [id number] 05:16:00 Registrat ion [id number] 05/16/2016 Document [id number] 05:16:05 Registrat ion [id number] 05/15/2016 Document [id number] 05:17:42 Registrat ion [id number] 05/14/2016 Document [id number] 05:17:46 Registrat ion [id number] 06/09/2017 Document 14:21:28 Registrat ion [id number] 10/28/2015 10/29/2015 DIS Emergency Robert OROZCO 22:59:00 08:55:00 P [facility] [id number] 12/09/2016 12/09/2016 CLS Outpatien ALBARRACI 12:01:00 23:59:59 t N, ASIF [id number] 11/06/2016 11/06/2016 CLS Outpatien [facility] 13:30:00 23:59:59 t N, ASIF [id number] 10/01/2016 10/01/2016 CLS Outpatien [facility]ARR[facility]I 14:16:00 23:59:59 t N, ASIF [id number] 09/09/2016 09/09/2016 CLS Outpatien [facility]ARR[facility]I 13:16:00 23:59:59 t N, ASIF [id number] 08/08/2016 08/08/2016 CLS Outpatien [facility]ARR[facility]I 12:42:00 23:59:59 t N, ASIF [id number] 07/10/2016 07/10/2016 CLS Outpatien [facility]ARRACI 07:33:00 23:59:59 t N, ASIF [id number] 04/11/2016 04/11/2016 CLS Outpatien [facility]ARRACI 11:40:00 23:59:59 t N, ASIF [id number] 03/05/2016 03/05/2016 CLS Outpatien [facility]ARR[facility]I 14:54:00 23:59:59 t N, ASIF [id number] 02/21/2017 02/21/2017 DIS Outpatien 14:20:00 15:05:00 t [id number] 05/13/2016 Document [id number] 13:10:00 Registrat ion [id number] 10/26/2015 Document 401 17:32:25 Registrat ion [id number] 06/10/2017 06/10/2017 CLS Outpatien PAIGEYAT DI 861 09:31:00 23:59:59 t RYAN Carter [id number] 02/21/2017 02/21/2017 DIS Emergency MOLL ER 170 12:30:00 15:53:00 YA Carter [id number] 02/20/2017 02/20/2017 DIS Emergency MAN ER 620 07:47:00 10:15:00 MARCUS Carter
[2017-07-10] MEDS ORDERED: ONDANSETRON 4 MG/2 ML INJECTION IVP PRN (22:18)
[2017-07-10] MEDS ORDERED: DEXTROSE 50% SYRINGE 50ml (1 AMP) IVP PRN (22:18)
[2017-07-10] MEDS ORDERED: SENNA + DOCUSATE TABLET PO PRN (22:18)
[2017-07-10] MEDS ORDERED: ACETAMINOPHEN 325 MG TABLET PO PRN (22:18)
[2017-07-10] MEDS ORDERED: MORPHINE SULFATE 4mg INJECTION IVP PRN (22:18)
[2017-07-10] MEDS: NS 1,000 ML IV SCH (22:40)
[2017-07-10] MEDS: ENOXAPARIN 40 MG/0.4 ML INJECTION SQ SCH (22:53)
[2017-07-10 22:54] VITALS: BMI 32.3
[2017-07-10] MEDS ORDERED: FALL RISK - PHARMACY CONSULT MC ONE (22:58)
--- NOTE | 2017-07-11 00:03 | History & Physical Report ---
History of Present Illness Date: 07/11/17 Chief complaint: abnormal behavior HPI: This is a 66 y/o male that was evaluated @ [facility] 07/09 into the morning of 07/10. The pateint had episode of suicidal ideation and overtook his medications. (oxycodone). The patient was observed and medically cleared. He was screned and subsequently admitted to [facility] psychiatric facility today around 10 am. The patient's behavior continued to escalate during transport and arrival. He had eratic behavior with almost a schizophrenic type activity. The ex states that he does drink alcohol still. Not available for interview at the time of my assessment. The concern was if he was withdrawing from alcohol. At this time the patient will be admitted to be medically cleared and to further assess delerium. The pateint is unable to provide any history . He received ativan prior to arrival. NO family members are present to advise further. CT head in the ED was normal. The pateint's labs were neg and UDS was c/w with meds prescribed. Vitals were stable. No localilzing neuro findings. Review of Systems Review of systems: not able to obtain due to patient's underlying mental condition Past Medical History Medical History Updates: atrial fib, anxiety, chronic back pain, CAD, DM2, hepatitis Surgical History: CABG. Left knee surgery 2003. Left knee replacement 2010 Family History Updates: not able to obtain at this time Family History: No Significant Family History - Social History Smoking status: Former smoker Substance use type: does not use Alcohol intake: current Current occupational status: unemployed Medications Home Medications Medication Instructions Recorded Confirmed Type Aspirin 1 tab PO DAILY 07/10/17 07/10/17 History Gabapentin 300 mg PO DAILY 07/10/17 07/10/17 History Insulin Glargine,Hum.rec.anlog 30 units SQ HS 07/10/17 07/10/17 History [Lantus Solostar] Lisinopril [Prinivil] 10 mg PO DAILY 07/10/17 07/10/17 History Metformin HCl [Metformin HCl] 500 mg PO DAILY 07/10/17 07/10/17 History Metoprolol Tartrate [Lopressor] 25 mg PO DAILY 07/10/17 07/10/17 History Oxycodone *IR* [Roxicodone *Ir*] 15 mg PO 5XD PRN 07/10/17 07/10/17 History Sennosides/Docusate Sodium 1 tab PO BID 07/10/17 07/10/17 History [Senokot-S Tablet] Simvastatin [Simvastatin] 20 mg PO HS 07/10/17 07/10/17 History Venlafaxine XR [Effexor Xr] 150 mg PO DAILY 07/10/17 07/10/17 History Allergies Allergy/AdvReac Type Severity Reaction Status Date / Time No Known Allergies Allergy Verified 07/10/17 19:04 Exam Vital Signs: Temperature 98 F 07/10/17 18:20 Pulse Rate 86 07/10/17 22:47 Respiratory Rate 20 07/10/17 22:47 Blood Pressure 135/68 07/10/17 22:02 Pulse Oximetry 99 07/10/17 22:47 Telemetry Rhythm: Sinus Rhythm Height/Weight/BMI: Height 1.91 m Weight 117.5 kg Body Mass Index 32.3 - Constitutional Present: moderate distress - Routine HEENT Exam Head: Present: normocephalic, atraumatic Eye: Present: PERRL ENT: Present: mucous membranes dry - Routine Neck Exam Present: supple - Routine Respiratory Exam Comments: diminished breath sounds. - Routine Cardiovascular Exam Present: RRR Comments: jackie 3/ - Routine Abdominal Exam Present: soft, non distended, non tender - Routine Extremities Exam Present: edema, full ROM - Routine Neurological Exam Present: moving all extremities, normal tone. Absent: alert, oriented X3, motor deficit - Routine Psychiatric Exam Absent: normal affect, normal thought process, suicidal ideation, cooperative, good insight, good judgment, anxious, agitated, manic Results - Labs CBC & Chem 7: 07/11/17 04:22 07/11/17 04:22 Labs: all labs reviewed and will be discussed below CT head unremarkable for acute disease Assessment and Plan (1) Acute delirium Current visit: Yes Status: Acute (2) DM type 2 (diabetes mellitus, type 2) Current visit: Yes Status: Acute (3) Chronic pain Current visit: Yes Status: Acute (4) Depression Current visit: Yes Status: Acute (5) Coronary artery disease Current visit: Yes Status: Acute (6) Chronic alcohol abuse Current visit: Yes Status: Acute Assessment and Plan: 1. delerium acute POA: etilogynot clear. ? psycotic break. alcohol withdrawl. metabolically intact. will monitor overnight. if not clear easily in am consider Mri. neuro checks, ciwa, 2. DM2 chronic POA: correctional plan 3. KRISTINE: patient not consitently use cpap, cpap ovenright 4. CAD chronic POA: no evidene of instability 5. DVT ppx; scd, lovenox 6. depression/anxiety chronic POA: recent suidiall will need placmeent once stable. consider genrations admit, cx not yet placed DVT Prophylaxis: SCD's, Lovenox GI Prophylaxis: Protonix Resuscitation Status: Full Code - Time spent with patient Time with patient PN: 30 minutes - Physician Narrative Physician: Geremias Prasad MD Narrative: Date: 07/11/17 Time: Ed Prasad Have independently interviewed and examined pt. Chart reviewed. Reviewed above not and concur. CC: Abnormal behavior HPI: 66 y/o with multiple medical problems presents to [facility] ED for [place] for evaluation of Abnormal behavior. Was Hospitalized at [facility] in [place] from to 07/10 for overdose of Oxycodone. Medically cleared and transported to . Apparently, behavior started to escalate on route and while at . Bazaar behaviors, pt very erratic and then somnolent. Transported to [facility] for evaluation. Pt has little recollection of what happened between going to and now waking up in medical room here. Reports dealing with loneliness, very 'down in his health.' 'Everything is going wrong.' He has no get up and go. Misses his job as he was around people. Have been having increasing weakness of his legs, harder to get around. Increasing back pain with increasing use of his pain pills. Reports 'no one to be accountable to.' Was 'thinking about it ( overdosing/suicide)' for several days before his drug ingestion. He did take the pills, but called his ex-. Denies any ETOH use since . Denies recent street drug use. Notes not been eating well. PMHx: CAD, Afib, HDL, Type II DM, KRISTINE, Hep C (reports recently completing treatment course), Chronic Back pain, Hx ETOHism (quit 04), Depression/anxiety PSxHx: L knee Sx 04, L knee replacement 11 All: NKDA MEDS: see XENIA GUTIERREZx: - at age 30, for 23 years. Hx Smoking-quit. 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 Lives in [place] Dr Abrams PCP. FHx: Lost son to heart disease. Mother when patient 8 years old. ROS: As in HPI. Remainer of 10 point ROS discussed with pt and neg. EXAM GEN: WDWN Obese unkept male, awake and alert HEENT: NC/AT PERRLA EOMI MMM Neck: supple, trachea midline CV: RRR with soft JACKIE Lungs: decreased bilaterally but without crackles, wheezes, rhonchi or distress AB: soft nt/nd +BS EXT: No c/c. Trace LE edema. SCD in place SKIN: warm and dry Neuro: CN II-XII grossly intact. No focal motor deficits PSYCH: awake alert. Converses well. Not agitated or restless. Tearful at times ( appropriately) Assessment Delirium/Encephalopathy - uncertain etiology Recent suicide attempt with narcotic overdose CAD HTN Type II DM KRISTINE Hep C Chronic back pain Chronic narcotic use/dependency, with recent abuse Gait instability Functional decline Depression/anxiety Plan: PT/OT for evaluation and treatment of LE weakness, gait instability, and functional decline. Continue with home medications. Monitor sugars in light of DM and medications. Lovenox/SCD for DVT prevention. Full code. CM to help with discharge disposition. Care to return to Dr Abrams at time of discharge from acute phase of Hospitalizations. Hospital Course Summary Disclaimer: The visit summary below is not to be considered part of the above Progress Note. Hospital Course: 05/10/17 Delirium acute POA: Etiology. ? psychotic break. alcohol withdraw. metabolically intact. will monitor overnight. if not clear easily in am consider Mri. neuro checks, ciwa, DM2 chronic POA: correctional plan KRISTINE: patient not consistently use cpap, cpap overnight CAD chronic POA: no evidence of instability Depression/anxiety chronic POA: recent suicidal will need placement once stable. consider generations admit, cx not yet placed 07/11/18 Encephalopathy and somnolence clearing. Lab stable other than elevated blood sugars. PT/OT for evaluation and treatment of LE weakness, gait instability, and functional decline. Continue with home medications. Monitor sugars in light of DM and medications. Lovenox/SCD for DVT prevention. Full code. CM to help with discharge disposition. Care to return to Dr Abrams at time of discharge from acute phase of Hospitalizations.
--- NOTE | 2017-07-11 07:49 | CT Scan Report ---
Indication: mental status change, confusion, hallucinations PROCEDURE: CT head/brain wo con: Encounter: Initial Comparison: None Technique: Axial CT images through the head were performed without contrast. Iterative Reconstruction dose reducing technique was utilized. FINDINGS: Motion artifact. Generalized atrophy. The ventricles are of normal size, shape, and contour for the patient's age. There are scattered areas of low attenuation in the white matter which most likely represent changes from chronic microvascular ischemia. The brainstem, cerebellum, and cerebral hemispheres otherwise have a normal morphology and CT attenuation. There is no evidence of midline displacement. No hemorrhage, signs of acute territorial stroke, mass effect, mass lesions, or edema is evident. The visualized portions of the skull base, midface, and calvarium demonstrate no abnormality. The paranasal sinuses are well aerated and free of significant disease. The tympanic and mastoid cavities appear normal. IMPRESSION: No acute intracranial abnormality or hemorrhage. There is a preliminary report by [employer] [facility]. .
[2017-07-11] MEDS: NS 1,000 ML IV SCH ×2 (08:25→19:36)
[2017-07-11] MEDS: MULTI-VITAMIN + MINERAL TABLET PO SCH (09:03)
[2017-07-11] MEDS: POLYETHYL GLYCOL 3350 17gm PACKET PO SCH (09:03)
[2017-07-11] MEDS: ENOXAPARIN 40 MG/0.4 ML INJECTION SQ SCH (09:03)
[2017-07-11] MEDS: FOLIC ACID 1 MG TABLET PO SCH (09:04)
[2017-07-11] MEDS: INSULIN ASPART 100unit/ml INJECTION SQ PRN ×3 (11:59→20:42)
[2017-07-12 02:21] VITALS: O2SAT 97
[2017-07-12] MEDS: NS 1,000 ML IV SCH (04:52)
[2017-07-12] MEDS: INSULIN ASPART 100unit/ml INJECTION SQ PRN ×3 (06:25→14:35)
[2017-07-12 08:24] VITALS: BP 157/85; PULSE 66; RESP 22; TEMP 97.5
[2017-07-12] MEDS ORDERED: ACETAMINOPHEN 500 MG TABLET PO PRN (09:07)
[2017-07-12] MEDS: FOLIC ACID 1 MG TABLET PO SCH (09:13)
[2017-07-12] MEDS: MULTI-VITAMIN + MINERAL TABLET PO SCH (09:13)
[2017-07-12] MEDS: ENOXAPARIN 40 MG/0.4 ML INJECTION SQ SCH (09:13)
[2017-07-12] MEDS: POLYETHYL GLYCOL 3350 17gm PACKET PO SCH (09:14)
--- NOTE | 2017-07-12 13:26 | Progress Note ---
- Date 07/12/17 Subjective: F/U: Delirium/Encephalopathy, DM, CAD Doing much better today. Thoughts linear, interacting well. Eating well. Breathing stable-no distress on RA. No chest pain. Strength and ambulation improving. Objective Vital signs: Temperature 97.5 F 07/12/17 08:20 Pulse Rate 66 07/12/17 08:20 Respiratory Rate 22 07/12/17 08:20 Blood Pressure 157/85 H 07/12/17 08:20 Pulse Oximetry 97 07/12/17 08:20 Height/Weight/BMI: Height 1.91 m Weight 120.7 kg Body Mass Index 32.3 - Constitutional Present: no acute distress, well nourished, well developed, average body habitus , obese, cooperative - Routine HEENT Exam Head: Present: normocephalic, atraumatic Eye: Present: EOMI, PERRL ENT: Present: mucous membranes moist - Routine Respiratory Exam Present: decreased breath sounds. Absent: rales, respiratory distress, rhonchi , stridor, wheezes - Routine Cardiovascular Exam Present: RRR, murmur - Routine Abdominal Exam Present: soft, normoactive bowel sounds, non distended, non tender. Absent: guarding - Routine Extremities Exam Present: pulses intact. Absent: cyanosis, clubbing - Routine Skin Exam Present: dry, warm - Routine Neurological Exam Present: alert, oriented X3, CN II-XII intact, moving all extremities, vision grossly intact, hearing grossly intact, normal speech. Absent: motor deficit, altered mental status - Routine Psychiatric Exam Present: normal affect, normal thought process, cooperative Results - Labs CBC & Chem 7: 07/11/17 04:22 07/12/17 10:54 Assessment and Plan (1) Acute delirium Current visit: Yes Status: Acute (2) DM type 2 (diabetes mellitus, type 2) Current visit: Yes Status: Acute (3) Chronic pain Current visit: Yes Status: Acute (4) Depression Current visit: Yes Status: Acute (5) Coronary artery disease Current visit: Yes Status: Acute (6) Chronic alcohol abuse Current visit: Yes Status: Acute Assessment and Plan: Assessment Delirium/Encephalopathy - uncertain etiology Recent suicide attempt with narcotic overdose CAD HTN Type II DM KRISTINE Hep C Chronic back pain Chronic narcotic use/dependency, with recent abuse Gait instability Functional decline Depression/anxiety Plan Medically doing well. Lab stable. Strength improving-ambulating better. Mentation cleared. Breathing well. Afebrile, vital signs stable. Discussed case with Dr Albetro at [facility], with resolution of encephalopathy will discharge to [facility] for psych care. 2000 KCAL ADA low sodium diet Walker for assistance. Psych to adjust his psychiatric medications. Medically stable for discharge to inpatient psychiatric care - see orders for details. Case discussed with nursing, CM and Dr Alberto. Time spent with patient care and discharge greater than 30 minutes. DVT Prophylaxis: SCD's Resuscitation Status: Full Code - Physician Narrative Physician: Geremias Prasad MD Narrative: Date: 07/12/17 Time: 1320 Hospital Course Summary Disclaimer: The visit summary below is not to be considered part of the above Progress Note. Hospital Course: 05/10/17 Delirium acute POA: Etiology. ? psychotic break. alcohol withdraw. metabolically intact. will monitor overnight. if not clear easily in am consider Mri. neuro checks, ciwa, DM2 chronic POA: correctional plan KRISTINE: patient not consistently use cpap, cpap overnight CAD chronic POA: no evidence of instability Depression/anxiety chronic POA: recent suicidal will need placement once stable. consider generations admit, cx not yet placed 07/11/18 Encephalopathy and somnolence clearing. Lab stable other than elevated blood sugars. PT/OT for evaluation and treatment of LE weakness, gait instability, and functional decline. Continue with home medications. Monitor sugars in light of DM and medications. Lovenox/SCD for DVT prevention. Full code. CM to help with discharge disposition. Care to return to Dr Abrams at time of discharge from acute phase of Hospitalizations. 07/12/17 Medically doing well. Lab stable. Strength improving-ambulating better. Mentation cleared. Breathing well. Afebrile, vital signs stable. Discussed case with Dr Alberto at [facility], with resolution of encephalopathy will discharge to [facility] for psych care. 2000 KCAL ADA low sodium diet Walker for assistance. Psych to adjust his psychiatric medications. Medically stable for discharge to inpatient psychiatric care - see orders for details.
--- NOTE | 2017-07-12 13:38 | Discharge Summary ---
Discharge Information Date of admission: 07/10/17 21:03 Anticipated date of discharge: 07/12/17 Attending Physician: Geremias Prasad MD - Discharge Diagnosis (1) Acute delirium Status: Acute (2) DM type 2 (diabetes mellitus, type 2) Status: Acute (3) Chronic pain Status: Acute (4) Depression Status: Acute (5) Coronary artery disease Status: Acute (6) Chronic alcohol abuse Status: Acute Discharge diagnosis Delirium/Encephalopathy - uncertain etiology Associated conditions and complications Recent suicide attempt with narcotic overdose CAD HTN Type II DM KRISTINE Hep C Chronic back pain Chronic narcotic use/dependency, with recent abuse Gait instability Functional decline Depression/anxiety - Laboratory Labs: Admit Lab 07/10/17 18:51 WBC 10.3 Hgb 16.0 Hct 45.4 MCV 89.7 Plt Count 152 Neut % (Auto) 59.9 Lymph % (Auto) 28.9 Oceana % (Auto) 9.3 H Eos % (Auto) 1.3 Baso % (Auto) 0.4 Admit Lab 07/10/17 18:51 Sodium 143 Potassium 4.4 Chloride 106 Carbon Dioxide 25 Anion Gap 12 BUN 38.0 H Creatinine 1.3 GFR Calculation 55 BUN/Creatinine Ratio 29 H Glucose 252 H Calculated Osmolality 293 H Calcium 9.0 Total Bilirubin 1.70 H Conjugated Bilirubin 0.00 Unconjugated Bilirubin 1.20 H AST 24 ALT 29 Alkaline Phosphatase 108 Total Protein 7.7 Albumin 4.4 Globulin 3.3 Albumin/Globulin Ratio 1.3 TSH 0.62 07/11/17 04:22 07/12/17 10:54 - Radiology Radiology: Date of Exam: 07/10/17 Type of Exam: CT head/brain wo con FINDINGS: Motion artifact. Generalized atrophy. The ventricles are of normal size, shape, and contour for the patient's age. There are scattered areas of low attenuation in the white matter which most likely represent changes from chronic microvascular ischemia. The brainstem, cerebellum, and cerebral hemispheres otherwise have a normal morphology and CT attenuation. There is no evidence of midline displacement. No hemorrhage, signs of acute territorial stroke, mass effect, mass lesions, or edema is evident. The visualized portions of the skull base, midface, and calvarium demonstrate no abnormality. The paranasal sinuses are well aerated and free of significant disease. The tympanic and mastoid cavities appear normal. IMPRESSION: No acute intracranial abnormality or hemorrhage. History of Present Illness HPI: This is a 66 y/o male that was evaluated @ [facility] 07/09 into the morning of 07/10. The patient had episode of suicidal ideation and overtook his medications. (oxycodone). The patient was observed and medically cleared. He was screened and subsequently admitted to [facility] facility today around 10 am. The patient's behavior continued to escalate during transport and arrival. He had erratic behavior with almost a schizophrenic type activity. The ex states that he does drink alcohol still. Not available for interview at the time of my assessment. The concern was if he was withdrawing from alcohol. At this time the patient will be admitted to be medically cleared and to further assess delirium. The patient is unable to provide any history . He received Ativan prior to arrival. NO family members are present to advise further. CT head in the ED was normal. The patent's labs were neg and UDS was c/w with meds prescribed. Vitals were stable. No localizing neuro findings. Objective Vital signs: Temperature 97.5 F 07/12/17 08:20 Pulse Rate 66 07/12/17 08:20 Respiratory Rate 22 07/12/17 08:20 Blood Pressure 157/85 H 07/12/17 08:20 Pulse Oximetry 97 07/12/17 08:20 Height/Weight/BMI: Height 1.91 m Weight 120.7 kg Body Mass Index 32.3 Hospital Course This is a general summary of the patient's hospital course. For more details refer to the complete medical record. Hospital course: 05/10/17 Delirium acute POA: Etiology. ? psychotic break. alcohol withdraw. metabolically intact. will monitor overnight. if not clear easily in am consider Mri. neuro checks, ciwa, DM2 chronic POA: correctional plan KRISTINE: patient not consistently use cpap, cpap overnight CAD chronic POA: no evidence of instability Depression/anxiety chronic POA: recent suicidal will need placement once stable. consider generations admit, cx not yet placed 07/11/18 Encephalopathy and somnolence clearing. Lab stable other than elevated blood sugars. PT/OT for evaluation and treatment of LE weakness, gait instability, and functional decline. Continue with home medications. Monitor sugars in light of DM and medications. Lovenox/SCD for DVT prevention. Full code. CM to help with discharge disposition. Care to return to Dr Abrams at time of discharge from acute phase of Hospitalizations. 07/12/17 Medically doing well. Lab stable. Strength improving-ambulating better. Mentation cleared. Breathing well. Afebrile, vital signs stable. Discussed case with Dr Alberto at [facility], with resolution of encephalopathy will discharge to for psych care. 2000 KCAL ADA low sodium diet Walker for assistance. Psych to adjust his psychiatric medications. Medically stable for discharge to inpatient psychiatric care - see orders for details. Time spent with patient: discharge greater than 30 minutes Resuscitation Status: Full Code Discharge Plan - Discharge Disposition Discharge Date: 07/12/17 Disposition: 66 To Psych Hosp/Unit *Condition: Improved Reason For Visit (Visit label in EMR): Delusional - Discharge Medications *Discharge Medications: New PEG 3350 17gm PACKET [Miralax] 17 gm PO DAILY PRN packet PRN Reason: Constipation Multi-Vitamin + Mineral [Therapeutic - M] 1 tab PO DAILY tab Continue Venlafaxine XR [Effexor Xr] 150 mg PO DAILY Aspirin 1 tab PO DAILY Gabapentin 300 mg PO DAILY Sennosides/Docusate Sodium [Senokot-S Tablet] 1 tab PO BID Oxycodone *IR* [Roxicodone *Ir*] 15 mg PO 5XD PRN PRN Reason: Pain Metoprolol Tartrate [Lopressor] 25 mg PO DAILY Metformin HCl 500 mg PO DAILY Lisinopril [Prinivil] 10 mg PO DAILY Insulin Glargine,Hum.rec.anlog [Lantus Solostar] 30 units SQ HS Simvastatin 20 mg PO HS Ciprofloxacin Eye Drops [Ciloxan 0.3% Eye Drops] 1 drops EACH EYE QID - Discharge Packet/Instructions *Diet: 2000 KCAL ADA low sodium *Activity: Walker for assistance *Pain Management/Treatment: Tylenol for pain. *Wound Care: n/a *Expected Signs/Symptoms: Improvement of Mental Health with treatments at [facility] *Notify Physician if: Temp >100.4. *During Business Hours Contact: Nursing staff at *After Business Hours Contact: Nursing staff at - Referrals/Follow Up *Referrals/Follow Up: Mandeep Alberto MD [Physician] - (Will follow at ) Nicol Abrams MD [Physician] - (F/U 1 week post discharge from for medcial care. ) - Patient Handouts - Dismissal Complete Discharge Instructions are:: Complete Physician Narrative - Narrative Physician: Geremias Prasad MD Attestation Narrative: Date: 07/12/17 Time: 6724 I have independently interviewed and examined patient prior to discharge. See my progress note for details. Medically stable for discharge to [facility].
== END 2017-07-12 14:50 | DRG 71 ==
LOC: ED 18:18 → EDHOLD 21:03 → SUATTDRO 21:03 → MED 21:45
PROVIDERS: ADMIT Emergency Medicine; ATTEND Hospitalist